=== PATIENT | female | born 1955 | race Caucasian/White ===

== ENCOUNTER 2022-12-27 14:30 | Outpatient (CLI) | payer MEDICARE, SELFPAY ==
--- NOTE | 2022-12-27 14:40 | CRLHL7_ITS ---
For Patients: As a result of the Cures Act, medical imaging exams and procedure reports are released immediately into your electronic medical record. You may view this report before your referring provider. If you have questions, please contact your health care provider. BILATERAL SCREENING MAMMOGRAM WITH COMPUTER-AIDED DETECTION AND TOMOSYNTHESIS TECHNIQUE: CC and MLO views were obtained. These mammographic images have been obtained using full-field digital technique. These mammographic images were interpreted with the benefit of computer-aided detection. Breast Tomosynthesis was used in this interpretation. COMPARISON FILM: 12/22/21, 11/27/20, 11/08/19. FINDINGS: There are scattered areas of fibroglandular density IMPRESSION: There is no radiographic evidence for malignancy. ASSESSMENT: BI-RADS Category 1: Negative RECOMMENDATION: Routine screening mammogram in 1 year. A lay language report of this examination will be provided to the patient. Bryan Pringle M.D. Diagnostic Radiologist [email or web address] BART/prosper / be/Dictated by: Bryan Pringle MD @ 12/28/2022 1:11:00 PM (Electronically Signed)
== END 2022-12-27 14:31 | disposition home or self-care (01) ==
LOC: MAMMO 14:31
PROVIDERS: PCP Family Medicine; Visit Provider Family Medicine
DX: Z12.31 Encounter for screening mammogram for malignant neoplasm of breast (principal)
CPT/HCPCS: 77063; 77067

== ENCOUNTER 2023-01-13 07:56 | Outpatient (CLI) | payer MEDICARE, SELFPAY | END 2023-01-13 07:57 | disposition home or self-care (01) | LOC: NFLDREF 01-14 14:59 | PROVIDERS: PCP Family Medicine; Referring Provider Family Medicine; Visit Provider Family Medicine | DX: I25.10 Atherosclerotic heart disease of native coronary artery without angina pectoris (principal); E78.5 Hyperlipidemia, unspecified; M81.0 Age-related osteoporosis without current pathological fracture; E55.9 Vitamin D deficiency, unspecified; E78.00 Pure hypercholesterolemia, unspecified | CPT/HCPCS: 80053; 80061; 82306 ==

== ENCOUNTER 2023-04-26 07:40 | Outpatient (CLI) | payer MEDICARE, SELFPAY | END 2023-04-26 07:41 | disposition home or self-care (01) | LOC: NFLDREF 18:05 | PROVIDERS: PCP Family Medicine; Referring Provider Family Medicine; Visit Provider Family Medicine | DX: E78.00 Pure hypercholesterolemia, unspecified (principal) | CPT/HCPCS: 80061 ==

== ENCOUNTER 2023-12-28 11:18 | Outpatient (CLI) | payer MEDICARE, SELFPAY ==
--- OUTSIDE RECORDS SUMMARY | 2023-12-28 11:21 | XMS_ITS | Encounter Summary ---
Author Name Unknown Organization [facility] Address [address] [place] [address] Care Team Providers Care Environmental Epidemiologist Name Role Phone Mary Ruiz MD Primary Care Provider Reason for Visit * Reason Comments Clinician Finder Team Encounter Details Date Type Department Care Team (Late st Contact Info) Description 07/15/2023 Telephone [facility] [address] [facility] [address] [facility] [place] [address] Needs Pcp, Assignment [place], [place] [address] Clinician Finder Team Social History Tobacco Use Types Packs/Day Years Used Date Smoking Tobacco: Never Assessed Sex and Gender Information Value Date Recorded Sex Assigned at Not on file Gender Identity Not on file Sexual Orientation Not on file documented as of this encounter Plan of Treatment Not on file documented as of this encounter Visit Diagnoses Not on filedocumented in this encounter Care Teams Environmental Epidemiologist Relationship Specialty Start Date End Date Mary Ruiz MD [address] [place] [address] PCP - General Family Practice 07/15/23 documented as of this encounter
--- OUTSIDE RECORDS SUMMARY | 2023-12-28 11:21 | XMS_ITS | Referral Summary ---
Author Name Unknown Organization [facility] Address [address] [place] [address] Care Team Providers Care Transfer Station Attendant Name Role Phone No Ref-Primary, Physician Primary Care Provider Allergies Active Allergy Reactions Criticality Noted Date Comments Erythromycin Nausea and Vomiting 06/28/2011 Other reaction(s): Abdominal pain, GI intolerance severe severe Perflutren Lipid Microspheres Muscle Pain (Myalgia) Medium 09/25/2015 Other reaction(s): Myalgia Other reaction(s): Myalgia Lower back pain Lower back pain Lower back pain Other reaction(s): Myalgia Lower back pain Medications Medication Sig Dispensed Refills Start Date End Date Status alendronate (FOSAMAX) 70 MG tablet Take 70 mg by mouth 0 12/26/2020 Activ e amitriptyline (ELAVIL) 10 MG tablet Take 40 mg by mouth 0 12/26/2020 Activ e vitamin C (ASCORBIC ACID) 500 MG tablet Daily 0 Activ e cholecalciferol 25 MCG (1000 UT) TABS 2,000 Units 0 Activ e metoprolol tartrate (LOPRESSOR) 25 MG tablet Take 12.5 mg by mouth 0 01/13/2021 Act rodney nitroGLYcerin (NITROSTAT) 0.[address] 0.4 mg under the tongue 0 02/11/2022 Active polyethylene glycol (MIRALAX) 17 GM/Dose powder Daily 0 Active zinc gluconate 50 MG tablet Take 1 tablet by mouth daily 0 Active zolpidem (AMBIEN) 5 MG tablet Take 2.5 mg by mouth 0 12/26/2020 Acti ve nirmatrelvir and ritonavir (PAXLOVID) therapy packIndications:Liyah pected COVID-19 virus infection Take 3 tablets by mouth 2 times daily Take 2 Nirmatrelvir tablets and 1 Ritonavir tablet twice daily for 5 days. 30 each 0 02/27/2022 Active Social History Tobacco Use Types Packs/Day Years Used Date Smoking Tobacco: Never Smokeless Tobacco: Never Alcohol Use Standard Drinks/Week Comments Yes 0 (1 standard drink = 0.6 oz pur e alcohol) glass a wine 2 times a month Adolescent Education Answer Date Record ed Getting School Help Needed Not on file 07/31 Sex and Gender Information Value Date Recorded Sex Assigned at Not on file Gender Identity Not on file Sexual Orientation Not on file Last Filed Vital Signs Vital Sign Reading Time Taken Comments Blood Pressure 130/84 02/27/2022 2:03 PM CDT Pulse 73 02/27/2022 2:03 PM CDT Temperature 36.8 ??C (98.3 ??F) 02/27/2022 2:03 PM CD T Respiratory Rate 16 02/27/2022 2:03 PM CDT Oxygen Saturation 97% 02/27/2022 2:03 PM CDT Inhaled Oxygen Concentration - - Weight 63.5 kg (140 lb) 02/27/2022 2:03 PM CDT Height - - Body Mass Index - - Plan of Treatment Not on file Care Teams Transfer Station Attendant Relationship Specialty Start Date End Date No Ref-Primary, Physician PCP - General 02/27/22
--- OUTSIDE RECORDS SUMMARY | 2023-12-28 11:21 | XMS_ITS | Clinical Summary ---
Author Name Unknown Organization [facility] Address [address] [place] [address] Care Team Providers Care Office Technologist Name Role Phone No Ref-Primary, Physician Primary [...] Mass Index - - Plan of Treatment Health Maintenance Due Date Last Done Comments ADVANCE CARE PLANNING 1955 ANNUAL REVIEW OF HM ORDERS 1954 CT COLONOGRAPHY 1954 DEXA 1954 FIT 1954 FLEX SIG 1954 GLUCOSE 1954 MAMMO SCREENING 1954 sDNA (Cologuard) 1954 HEPATITIS C SCREENING 1972 LIPID 1994 RSV VACCINE ( & 60+) (1 - 1-dose 60+ series) 2014 COLONOSCOPY 08/10/2015 08/10/2005 COLORECTAL CANCER SCREENING 08/10/2015 ZOSTER IMMUNIZATION (2 of 3) 08/22/2017 06/27/2017 FALL RISK ASSESSMENT 2019 MEDICARE ANNUAL WELLNESS VISIT 2019 09/12/2017, 08/05/2016, 09/03/2013, Additional history exists COVID-19 Vaccine ( season) 2023 09/14/2021, 01/23/2021, 12/26/2020 INFLUENZA VACCINE (#1) 2023 2, 07/28/2021, 08/07/2020, Additional history exists PHQ-2 (once per calendar year) 2023 DTAP/TDAP/TD IMMUNIZATION (4 - Td or Tdap) 10/13/2028 10/13/2018, 10/13/2018, 10/06/2007, Additional history exists Pneumococcal Vaccine: 65+ Years Completed 12/29/2021, 11/22/2019, 11/09/2005 HPV IMMUNIZATION Aged Out No longer e ligible based on patient's age to complete this topic IPV IMMUNIZATION Aged Out No longer e ligible based on patient's age to complete this topic MENINGITIS IMMUNIZATION Aged Out No l onger eligible based on patient's age to complete this topic RSV MONOCLONAL ANTIBODY Aged Out No l onger eligible based on patient's age to complete this topic Care Teams Office Technologist Relationship Specialty Start Date End Date No Ref-Primary, Physician PCP - General 02/27/22
--- OUTSIDE RECORDS SUMMARY | 2023-12-28 11:21 | XMS_ITS | Encounter Summary ---
Author Name Unknown Organization [facility] Address [address] [place] [address] Care Team Providers Care Production Line Name Role Phone Needs Pcp, Assignment Primary Care Provider Encounter Details Date Type Department Care Team (Late st Contact Info) Description 06/30/2023 11:05 AM CDT Lab Visit [facility] [address] [place] [address] Mixed hyperlipidemia (HRC) Social History Tobacco Use Types Packs/Day Years Used Date Smoking Tobacco: Never Assessed Sex and Gender Information Value Date Recorded Sex Assigned at Not on file Gender Identity Not on file Sexual Orientation Not on file documented as of this encounter Progress Notes * Gabriela Franklin MD - 06/30/2023 11:05 AM CDT Can you please let the patient know the test is normal. documented in this encounter Plan of Treatment Not on file documented as of this encounter Procedures Procedure Name Priority Date/Time Associated Diagnosis Comments LIPID PANEL & DIRECT LDL (IF NEEDED) Routine 06/30/2023 10:54 AM CDT Mixed hyperlipidemia (HRC) documented in this encounter Results * Lipid Panel and Direct LDL(If Needed) (06/30/2023 10:54 AM CDT) Cholesterol 189 0 - 199 mg/dL 06/30/2023 4:24 PM [facility] Triglyceride 66 <=149 mg/dL 06/30/2023 4:24 PM [facility] HDL Cholesterol 79 >=40 mg/dL 4:24 PM [facility] LDL, Calculated 97 <130 mg/dL 4:24 PM [facility] Non HDL Chol, Calculated 110 <=159 mg/dL 06/30/2023 4:24 PM [facility] Cholesterol/HDL Ratio 2.4 06/30/2023 4:24 PM [facility] Hours Fasting 0.1 8 - 12 Hours 06/30/2023 4:24 PM [facility] Blood Venipuncture / Unknown 06/30/2023 10:54 AM CDT 06/30/2023 10:54 AM CDT Gabriela Franklin MD LAB_1 [facility] [address] [place] [address], [facility] [phone] documented in this encounter Visit Diagnoses Diagnosis Mixed hyperlipidemia (HRC) Mixed hyperlipidemia documented in this encounter Care Teams Production Line Relationship Specialty Start Date End Date [place] [address] PCP - General 05/29/15 07/14/23 documented as of this encounter
--- OUTSIDE RECORDS SUMMARY | 2023-12-28 11:21 | XMS_ITS | Clinical Summary ---
Author Name Unknown Organization [facility] Address [place], [place] [address] Care Team Providers Care Order Entry Administrator Name Role Phone Mary Ruiz MD Primary Care Provider + Allergies Active Allergy Reactions Criticality Noted Date Comments Perflutren Lipid Microspheres Myalgia Medium 09/25/2015 Lower back pain Erythromycin Nausea And Vomiting 09/09/2015 Medications Medication Sig Dispensed Refills Start Date End Date Status alendronate (FOSAMAX) 70 mg tablet Take 70 mg by mouth once a week in the morning. Take on empty stomach with full glass of water. Do not lie down for 1 hr. 0 Active zolpidem (AMBIEN) 5 mg tablet Take 2.5 mg by mouth at bedtime. 0 Active polyethylene glycol (MIRALAX) 17 g powder for solution Take 17 g by mouth once daily. 0 09/21/2018 Active amitriptyline (ELAVIL) 10 mg tablet Take 4 Tablets by mouth at bedtime. 0 Active ascorbic acid, vitamin C, (VITAMIN C) 1,000 mg tablet Take 1 Tablet by mouth once daily. 0 Active multivitamin (MVI) tablet Take 1 Tablet by mouth once daily. 0 02/10/2022 Active zinc 50 mg tablet Take 1 Tablet (50 mg) by mouth once daily. 0 04/27/2022 Active cholecalciferol (Vitamin D) 1,000 unit tablet Take 1 Tablet (1,000 units) by mouth once daily. 0 04/27/2022 Active medication order composer Calcium cap once daily (unsure of strength) Pro and prebiotic One capsule per day. 0 04/27/2022 Active aspirin chewable 81 mg chewable tabletIndications:Spo ntaneous dissection of coronary artery Chew 1 Tablet (81 mg) by mouth once daily. Pt stated taking one tab by mouth every other day, unless when having an episode I'll take one everyday. 0 10/18/2022 Active nitroglycerin (NITROSTAT) 0.4 mg sublingual tabletIndications:Spo ntaneous dissection of coronary artery,Stress-induced cardiomyopathy Place 1 Tablet (0.4 mg) under the tongue every 5 minutes if needed for Chest Pain. 25 Tablet 2 10/18/2022 Active metoprolol tartrate (LOPRESSOR) 25 mg tabletIndications:Spo ntaneous dissection of coronary artery Take 0.5 Tablets (12.5 mg) by mouth two times daily. 180 Tablet 0 04/26/2023 Active Active Problems Problem Noted Date Diagnosed Date Hypercholesterolemia 09/07/2018 Overview: -09/01/2018 Chol: 208, T, HDL: 72, LDL: 123 started on atorvastatin 20 mg at bedtime Stress-induced cardiomyopathy 08/31/2018 Spontaneous dissection of coronary artery 2017 Overview: -09/15/2015 CT coronary angio Normal coronary arteries. Coronary calcium score of 0. Normal ascending aortic dimensions -08/31/2018 Angio STEMI VASCULAR ACCESS Using ultrasound guidance and a percutaneous technique, the right radial artery was accessed. Ultrasound was used to confirm vessel patency, localizing needle into the lumen of the vessel. An image was saved for the medical record. DIAGNOSTIC - CORONARY Single vessel coronary disease (70% diffuse distal LAD - possibly due to spontaneous coronary dissection) LEFT VENTRICULAR FUNCTION Left ventricular function is normal. Severe akinesis noted in the apex RECOMMENDATIONS & PLAN Medical Rx -08/31/2018 ECHO Normal left ventricular size, normal wall thickness, normal global systolic function, calculated EF of 56 %. Mid and distal anterior septum, apical lateral segment, and mid septum segment are abnormal. The mitral valve is normal, mild mitral regurgitation. -09/01/2018 CT coronary angio Known spontaneous coronary artery dissection. Apical third of the LAD has features compatible with spontaneous coronary artery dissection. Anatomy is unchanged directly compared to the invasive angiogram. Otherwise widely patent but tortuous coronary arteries. Descending thoracic aortic atherosclerosis. Mid to apical LAD wall motion abnormality, in proportion to the SCAD demonstrated. No LV thrombus. No acute non cardiovascular findings. ?? COMMENT: The patient had a vasovagal episode post CTA. She was briefly unresponsive with eyes staring forward. She was immediately laid down on a cart with her legs lifted. I attended her immediately. She had a good pulse throughout, and immediately woke up upon laying flat. No chest discomfort. Conversant throughout this period of time. Blood pressure was approximately 108 mmHg systolic. Monitor showed sinus rhythm, and she began to receive IV fluids. She was transported upstairs fully awake and intact. Immunizations Name Administration Dates Next Due Hepatitis A (Adult) 05/13/2010,11/18/1998 Influenza A (H1N1), Inactivated 11/26/2009 Influenza, High-dose Inactivated 08/01/2015 Influenza, IIV3 (Age 6-35 mos) 08/05/2016 Influenza, IIV3 (Age >=3 years) 08/07/20 14,08/20/2013,08/18/2012,2010,07/20/2011,08/12/2010 Influenza, IIV4 08/05/2016, 5,08/07/2014,2012,08/07/2012,08/06/2011,08/07/2007,1 11/14/2003 Influenza, IIV4 (=>6mos) MDV 07/23/2015 Influenza,CCIIV4 PRESERV FREE 08/22/2017 Pneumococcal Poly,23-Valent (Pneumovax) 11/09/2005 Td (Age >=7 Years) 04/02/1998 Family History Medical History Relation Name Comments Cancer-breast Maternal Aunt 70's Cancer-colon Maternal Aunt 70's Cancer-ovarian No Family History Cancer-prostate No Family History Relation Name Status Comments Maternal Aunt Alive Social History Tobacco Use Types Packs/Day Years Used Date Smoking Tobacco: Never Smokeless Tobacco: Never Alcohol Use Standard Drinks/Week Comments No 0 (1 standard drink = 0.6 oz pur e alcohol) PHQ-2 Answer Date Recorded PHQ-2 Score 3 01/06/2019 Social Connections Answer Date Recorded Frequency of Communication with Friends and Fami ly Not on file 11/07/2021 Financial Resource Strain Answer Date R ecorded Difficulty of Paying Living Expenses Not on file 11/07/2021 Difficulty of Paying Living Expenses Not on file 11/07/2021 Sex and Gender Information Value Date Recorded Sex Assigned at Not on file Gender Identity Not on file Sexual Orientation Not on file Obstetrics History Last Filed Vital Signs Vital Sign Reading Time Taken Comments Blood Pressure 103/70 10/18/2022 9:36 AM INDUSTRIAL INSULATOR Difficult to hear. Pulse 68 10/18/2022 9:33 AM INDUSTRIAL INSULATOR Temperature 36.4 ??C (97.6 ??F) 09/03/2018 8 :41 AM CDT Respiratory Rate 16 09/03/2018 8:41 AM CDT Oxygen Saturation 99% 10/18/2022 9:3 3 AM INDUSTRIAL INSULATOR Inhaled Oxygen Concentration - - Weight 63.9 kg (140 lb 14.4 oz) 10/18/2022 9:33 AM INDUSTRIAL INSULATOR Height 165.1 cm (5' 5) 10/18/2022 9:33 AM INDUSTRIAL INSULATOR Body Mass Index 23.45 10/18/2022 9:33 AM INDUSTRIAL INSULATOR Plan of Treatment Health Maintenance Due Date Last Done Comments Tdap 1965 Hepatitis C screening for ag e 18-79 1972 Colonoscopy through age 75 1999 Zoster (shingles) series for age 50+ (1 of 2) 2004 Tetanus booster 04/02/2008 04/02/1998 Mammogram for age 45-75 04/20/2018 04/20/20 17, 04/14/2016, 04/03/2015, Additional history exists DEXA/DXA scan for age 65+ 2019 Medicare Wellness for age 65+ 2019 Pneumococcal series for age 65+ (2 of 2 - PCV) 2019 11/09/2005 Depression screening for age 12+ 09/22/2019 09/22/2018, 09/21/2018, 09/21/2018, Additional history exists COVID-19 vaccine series ( season) 2023 08/30/2022, 09/14/2021, 01/23/2021, Additional history exists Influenza for age 65+ 07/08/2023 08/22/2017 , 08/05/2016, 08/01/2015, Additional history exists BMI (ht and wt on same day) for age 18+ 10/18/2023 10/18/2022, 04/27/2022, 01/17/2019, Additional history exists Lipids for age 45-75 10/18/2027 10/18/2022, 01/14/2020, 09/21/2018, Additional history exists Advance Directives Latest Code Status on File Code Status Date Activated Date Inactivated Comments Full Code 08/31/2018 12:56 PM 09/03/2018 4:30 PM Care Teams Order Entry Administrator Relationship Specialty Start Date End Date Mary Ruiz MD [address] [place] [address] PCP - General Family Practice 10/24/18
--- OUTSIDE RECORDS SUMMARY | 2023-12-28 11:21 | XMS_ITS | Encounter Summary ---
Author Name Unknown Organization [facility] Address [address] [place] [address] Care Team Providers Care Microsoft Net Developer Name Role Phone Needs Pcp, Assignment Primary Care Provider [phone] Reason for Referral * Procedure/Equipment (Routine) - Closed Specialty Diagnoses / Procedures Referred By Nelida perera Referred To Contact Diagnoses Fibromuscular dysplasia (HRC) Headaches Procedures CT Angio Neck Head W IV Cont Gabriela Hardin MD [address] [place] [address] Referral ID Status Reason Start Date Expiration Date Visits Re quested Visits Authorized [id number] Closed 07/04/2023 08/18/2023 1 1 Reason for Visit * Reason Comments CONSULT Encounter Details Date Type Department Care Team (Late st Contact Info) Description 06/30/2023 9:30 AM CDT Initial Consult [facility] [address] [address] Gabriela Hardin MD [address] [place], [place] [id number] Nurse, Cardiology II [facility] [address] 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); Fibromuscular dysplasia (HRC); Headaches; Mixed hyperlipidemia (HRC) Social History Tobacco Use Types Packs/Day Years Used Date Smoking Tobacco: Never Assessed Sex and Gender Information Value Date Recorded Sex Assigned at Not on file Gender Identity Not on file Sexual Orientation Not on file documented as of this encounter Last Filed Vital Signs Vital Sign Reading Time Taken Comments Blood Pressure 100/79 06/30/2023 9:34 AM CDT Pulse 72 06/30/2023 9:34 AM CDT apica l, reg Temperature - - Respiratory Rate - - Oxygen Saturation - - Inhaled Oxygen Concentration - - Weight 61.2 kg (135 lb) 06/30/2023 9:34 AM CDT Height 165.1 cm (5' 5) 06/30/2023 9:34 AM CDT Body Mass Index 22.47 06/30/2023 9:34 AM CDT documented in this encounter Patient Instructions * Patient Instructions* Marlee Starr RN - 06/30/2023 9:30 AM CDT Labs today Schedule head CT Aspirin 81 mg daily Continue metoprolol 12.5 mg twice a day Follow up in clinic in 1 year. documented in this encounter Progress Notes * Gabriela Hardin MD - 06/30/2023 9:30 AM CDT Cardiology Consultation 06/30/2023 Shalini Oneal [id number] Referring provider: Assignment Needs PCP History of Present Illness: Shalini Oneal is a very pleasant 68 y.o. female with a history of LAD SCAD. She presented 08/31/[address]-ELEVATION MYOCARDIAL INFARCTION due to spontaneous coronary artery dissection. Treated conservatively. Troponin peaked at 6. She was discharged home and had chest pain off and on for about a week after, but now is feeling better. Her SCAD occurred the day she discovered that her son-in-law had committed suicide. Her has parkinsons, diagnosed about 20 years ago. He is also caregiver for her parents. CT head showed some changes consistent with fibromuscular dysplasia of middle cerebral arteries butvery mild. Echo was normal. Aches on statin, better off statin but also has fibromyalgia. LDL on 5 mg of Crestor every day was 150. Here in follow up; she had 2 episodes of chest pain radiating to the neck, similar to her STEMI butmuch less severe and resolved. Did not recur with exercise exertion. Walks regularly- walked 2.5 miles yesterday. No decrease in exercise tolerance. Lost 20lbs. She walks 2-3.5 miles about 3 times a week and has no chest pain with this. She gets occasional headaches, left-sided. INDICATION: Chronic intractable headache. History of spontaneous coronary artery dissection. TECHNIQUE: Contrast enhanced helical CT of the head with axial images obtained from the skullbase to the vertex with the intravenous administration of 100 cc of Omnipaque-350. Sagittal and coronal reformats generated. PLEASE NOTE THAT ALL CT SCANS AT THIS FACILITY USE DOSE MODULATION, ITERATIVE RECONSTRUCTION, AND/OR WEIGHT-BASED DOSING WHEN APPROPRIATE TO REDUCE RADIATION TO LOW REASONABLY ACHIEVABLE. FINDINGS: The CSF containing spaces demonstrate and age-appropriate volume and appear symmetrical. No enhancing intracranial masses are identified. No abnormal extra- axial fluid collections or mass-effect. Mild membrane thickening involving several bilateral ethmoid air cells. The visualized paranasal sinuses, mastoid air cells and middle ear cavities are otherwise clear. The orbits are unremarkable. The osseous calvarium is intact. Evaluation of the intracranial arteries for fibromuscular dysplasia can be difficult. On this examination there may be a slightly beaded appearance of the middle cerebral arteries. IMPRESSION: 1. Normal CT appearance of the brain. 2. Possible fibromuscular dysplasia involving the middle cerebral arteries. However this is difficult to state with certainty. Intracranial MRA could be considered for further imaging evaluation. Please note that all CT scans at this facility use dose modulation, iterative reconstruction, and/or weight-based dosing when appropriate to reduce radiation dose to as low as reasonably achievable. Dictated by Albert Moon DO @ Oct 05 2018 10:54AM NECK -- Computed Tomography CAROTID -- -- Narrative INDICATION: Coronary dissection, clinical suspicion for fibromuscular dysplasia. TECHNIQUE: High-resolution axial CT images were acquired through the neck following the rapid intravenous administration of iodinated contrast. Multiplanar MIPS of the cervical vasculature were performed as well. FINDINGS: The carotid and vertebral arteries are tortuous and extremely ectatic, particularly the left internal carotid artery, which is quite large (measuring over 6 mm in diameter even distally). The findings are consistent with an underlying vasculopathy, not otherwise specified. There is not the classic b eaded appearance to suggest fibromuscular dysplasia. There is no evidence for dissection. There is no stenosis. There is no intraluminal filling defect. IMPRESSION: Tortuous ectatic cervical vasculature consistent with an underlying vasculopathy, not otherwise specified. No evidence for fibromuscular dysplasia, significant stenosis or dissection. Please note that all CT scans at this facility use dose modulation, iterative reconstruction, and/or weight-based dosing when appropriate to reduce radiation dose to as low as reasonably achievable. Dictated by Jose Armendariz MD @ Sep 26 2018 1:41PM ECHOCARDIOGRAM SHALINI ONEAL : 1955 65 years Study Date: 02/24/2021 10:55:35 AM Gender: F BP: 114/70 mmHg Height: 165.10 cm BSA: 1.75 m? Weight: 67.58 kg Tech: LRT Referring MD: GABRIELA HARDIN Site: [facility] Reading Location: [facility] Procedure: 2D, Color Doppler and Spectral Doppler. Indication for study: ST elevation myocardial infarction involving left anterior descending (LAD) coronary artery Cardiac Rhythm: Sinus bradycardia.Study quality: Technically limited. Imaging limitations: This study was subject to imaging limitations due to a prominent lung artifact. Final Impressions: 1. Technically limited exam. 2. Normal LV size, normal wall thickness, estimated EF of 55 - 60%. 3. Normal RV size and systolic function. 4. The mitral valve is normal, mild mitral regurgitation. CTA 08/22/2018: IMPRESSION: 1. Known spontaneous coronary artery dissection. A. Apical third of the LAD has features compatible with spontaneous coronary artery dissection. Distribution is unchanged directly compared to the invasive angiogram. B. Otherwise widely patent but tortuous coronary arteries. 2. Descending thoracic aortic atherosclerosis. 3. Mid to apical LAD wall motion abnormality, in proportion to the SCAD demonstrated. 4. No LV thrombus. 5. Please see separate radiology dictation for noncardiovascular findings. Echocardiogram 08/31/2018: Final Impressions: 1. Normal left ventricular size, normal wall thickness, normal global systolic function, calculatedEF of 56 %. 2. Mid and distal anterior septum, apical lateral segment, and mid septum segment are abnormal. 3. The mitral valve is normal, mild mitral regurgitation. [facility] Cardiac Catheterization Report Name: SHALINI ONEAL Event Date: 08/31/2018 12:31 Excellian ID #: [id number] FRANCISCO J #: [id number] Diagnostic Physician: LANRE MCKEE [facility] Referring Physician: TIERRA BILLINGSLEY Date: 1955 Gender: Female Age: 63 Summary/Conclusions PRESENTATION / INDICATIONS * STEMI VASCULAR ACCESS * Using ultrasound guidance and a percutaneous technique, the right radial artery was accessed. Ultrasound was used to confirm vessel patency, localizing needle into the lumen of the vessel. An imagewas saved for the medical record. DIAGNOSTIC - CORONARY * Single vessel coronary disease (70% diffuse distal LAD - possibly due to spontaneous coronary dissection) LEFT VENTRICULAR FUNCTION * Left ventricular function is normal. * Severe akinesis noted in the apex RECOMMENDATIONS & PLAN * Medical Rx Medications: Reviewed in the EMR. Pertinent cardiac medications include: Metoprolol Crestor aspirin OBJECTIVE: BP 100/79 (BP Location: Right Arm, BP Cuff Size: Regular) Pulse 72 Comment: apical, reg Ht 5' 5 (165.1 cm) Wt 135 lb (63414 g) BMI 22.47 kg/m?? General Appearance: no respiratory distress Neck No carotid bruits. JVP normal Lungs: Clear to auscultation bilaterally, no wheezes or crackles Heart: Regular rate and rhythm, S1, S2 normal, no murmur, rub or gallop Abdomen: BS+ Extremities: Warm and without edema Assessment: 68-year-old female with a anterior ST-elevation MA due to spontaneous coronary artery dissection down the LAD. Treated conservatively. Echo in February of 2023 was normal. Screening for fibromuscular dysplasia so showed some borderline changes in the middle cerebral arteries bilaterally. Her last imaging was 2017 and she has ongoing headaches. Blood pressure is optimally controlled. I discussed repeat CTA of the cerebral arteries to re-evaluate this. Continue aspirin 81 mg p.o. daily. Continue metoprolol 12.5 mg p.o. b.i.d. She increased Crestor to 5 mg p.o. daily and will recheck lipids today Recommendations: Ok to proceed with cataract surgery CTA to re-evaluate FMD of middle cerebral arteries due to ongoing headache Continue aspirin metoprolol and Crestor Lipids today Annual follow up Thank you for involving me in the care of your patient, Shalini Oneal. If you have any questions regarding these recommendations, please feel free to contact me. Gabriela Hardin MD, [facility] Department of Cardiology documented in this encounter Plan of Treatment Not on file documented as of this encounter Results * CT Angio Neck Head W IV Cont (07/05/2023 12:03 PM CDT) Anatomical Region Laterality Modality Head, Vascular Computed Tomogra phy 07/05/2023 11:4 6 AM CDT Impressions 07/05/2023 8:58 PM CDT INDICATION: Dizziness, persistent/recurrent, cardiac or vascular cause suspected TECHNIQUE: CT angiogram of the [place] ??and CT angiogram of the neck with IV contrast with 2D and 3D reformatting, 100 mL IOPAMIDOL 76 % IV SOLN. ?? COMPARISON: ??None. FINDINGS: Distal internal carotid arteries: Patent and nonstenotic. ? Anterior cerebral arteries: Patent and nonstenotic. ? Middle cerebral arteries: ??Patent and nonstenotic. ? Posterior cerebral arteries: ??Patent and nonstenotic. origin of the left posterior cerebral artery. ?? Vertebrobasilar system: ??Patent and nonstenotic. ? Arch: Normal arch anatomy. Visualized aortic arch and brachiocephalic vessels are patent and nonstenotic. Right Neck: The common carotid artery, internal carotid artery, external carotid artery, and vertebral artery appear patent and nonstenotic. Left Neck: The common carotid artery, internal carotid artery, external carotid artery, and vertebral artery appear patent and nonstenotic. IMPRESSION: 1. No evidence of intracranial aneurysm or stenosis. 2. No evidence for a hemodynamically significant stenosis involving the vessels of the neck. Narrative Procedure Note Oliver Tarango MD - 07/05/2023 IMPRESSION INDICATION: Dizziness, persistent/recurrent, cardiac or vascular causesuspected TECHNIQUE: CT angiogram of the [place] and CT angiogram of theneck with IV contrast with 2D and 3D reformatting, 100 mL IOPAMIDOL 76 %IV SOLN. COMPARISON: None. FINDINGS: Distal internal carotid arteries: Patent and nonstenotic. Anterior cerebral arteries: Patent and nonstenotic. Middle cerebral arteries: Patent and nonstenotic. Posterior cerebral arteries: Patent and nonstenotic. origin of theleft posterior cerebral artery. Vertebrobasilar system: Patent and nonstenotic. Arch: Normal arch anatomy. Visualized aortic arch and brachiocephalicvessels are patent and nonstenotic. Right Neck: The common carotid artery, internal carotid artery, externalcarotid artery, and vertebral artery appear patent and nonstenotic. Left Neck: The common carotid artery, internal carotid artery, externalcarotid artery, and vertebral artery appear patent and nonstenotic. IMPRESSION: 1. No evidence of intracranial aneurysm or stenosis. 2. No evidence for a hemodynamically significant stenosis involving thevessels of the neck. Gabriela Hardin MD RAD CT * Lipid Panel and Direct LDL(If Needed) (06/30/2023 10:54 AM T) Cholesterol 189 0 - 199 mg/dL 06/30/2023 4:24 PM [facility] Triglyceride 66 <=149 mg/dL 06/30/2023 4:24 PM [facility] HDL Cholesterol 79 >=40 mg/dL 3 4:24 PM [facility] LDL, Calculated 97 <130 mg/dL 3 4:24 PM [facility] Non HDL Chol, Calculated 110 <=159 mg/dL 06/30/2023 4:24 PM [facility] Cholesterol/HDL Ratio 2.4 06/30/2023 4:24 PM [facility] Hours Fasting 0.1 8 - 12 Hours 06/30/2023 4:24 PM [facility] Blood Venipuncture / Unknown 06/30/2023 10:54 AM CDT 06/30/2023 10:54 AM CDT Gabriela Hardin MD LAB_1 [facility] [address] [place] [address], [facility] [phone] documented in this encounter Visit Diagnoses Diagnosis Spontaneous dissection of coronary artery (HRC)- Primary Fibromuscular dysplasia (HRC) Other specified disorders of arteries and arterioles Headaches Mixed hyperlipidemia (HRC) Mixed hyperlipidemia Dizziness- Primary Dizziness and giddiness Fibromuscular dysplasia (HRC) Other specified disorders of arteries and arterioles Headaches documented in this encounter Care Teams Microsoft Net Developer Relationship Specialty Start Date End Date Needs Pcp, [place] [address] PCP - General 05/29/15 07/14/23 documented as of this encounter
--- OUTSIDE RECORDS SUMMARY | 2023-12-28 11:21 | XMS_ITS | Clinical Summary ---
Author Name Unknown Organization [facility] Address [address] [place] [address] Care Team Providers Care Paper Machine Back Tender Name Role Phone Mary Ruiz MD Primary Care Provider Source Comments You are receiving this document as you are listed as the primary care provider,follow-up provider, or the patient has been referred to you for consultation.This is in compliance with the Medicare and[facility] Cent[facility]aid EHR Incentive Program,which states Providers who transition their patient to another setting of careor provider of care or refers their patient to another provider of care shouldprovide summary care record for each transition of care or referral. [facility] Allergies Active Allergy Reactions Criticality Noted Date Comments Erythromycin Gastrointestinal 06/30/2023 Stomach pain Perflutren Lipid Microspheres Myalgias Medium 09/25/2015 Lower back pain Medications Medication Sig Dispensed Refills Start Date End Date Status zolpidem (AMBIEN) 5 MG tablet Take 0.5 Tablets (2.5 mg) by mouth at bedtime as needed. Active amitriptyline (ELAVIL) 10 MG tablet Take 4 Tablets (40 mg) by mouth daily at bedtime. Active alendronate (FOSAMAX) 70 MG tablet Take 1 Tablet (70 mg) by mouth once every week. Active metoprolol tartrate (LOPRESSOR) 25 MG tablet Take 0.5 Tablets (12.5 mg) by mouth two times a day. 90 Tablet 3 06/30/2023 Active rosuvastatin (CRESTOR) 5 MG tablet Take 1 Tablet (5 mg) by mouth daily. 90 Tablet 3 06/30/2023 Active Immunizations Name Administration Dates Next Due Flu Vac (3+ yrs) 08/07/2014, 3,08/18/2012, 011,07/20/2011,08/12/2010,09/13/2006,11/2004 Flu Vac Preserv Free (3+yrs) 08/05/2016 Fluzone Qiv Multidose Vial 0 .25 (6-35 Mos) 07/23/2015 [id number] 11/26/2009 HepA Adult (19+ yrs) 05/13/2010,11/18/1998 Influenza (Flucelvax), Prese rv Free QIV 08/11/2018,08/22/2017 Influenza IIV3 (Trivalent) F luzone Highdose, 65+ Yrs (87266) 08/07/2019,08/01/2015 Influenza IIV4 (Quadrivalent ) 0.5mL (12280) 08/07/2020,08/05/2016,08/01/2015, 014,07/24/2014,08/20/2013,08/07/2012,,11/26/2009,08/07/2007,09/14/2004 Influenza IIV4 (Quadrivalent ) Fluzone, 65+ Yrs 08/09/2022,07/28/2021 Influenza Vaccine (3+years) ([facility]) 09/19/2007 Moderna Bivalent 12+ 08/30/2022 Moderna Monovalent 12+ 01/23/2021,12/26/2020 PCV13 (Prevnar) 11/22/2019 PPSV23 (Pneumovax) 12/29/2021,11/09/2005 Pfizer Monovalent 12+ Purple Top 09/14/2021 Td 04/02/1998 Tdap 10/13/2018 Zoster (Zostavax) 06/27/2017 Social History Tobacco Use Types Packs/Day Years [...] Mass Index 22.47 06/30/2023 9:34 AM CDT Plan of Treatment Health Maintenance Due Date Last Done Comments Hep C Screening (Preventive Services) 1955 Medicare Welcome Visit 1955 Mammogram 04/09/2014 04/09/2013 Zoster/Shingles (2 of 3) 08/22/2017 06/27/2017 Dexa 2019 Colonoscopy 05/04/2020 05/04/2010 COVID-19 Vaccine ( season) 2023 08/30/2022, 09/14/2021, 01/23/2021, Additional history exists Influenza (#1) 2023 08/09/2022, 09/11/2020, 08/07/2020, Additional history exists Cholesterol 06/30/2028 06/30/2023 DTaP/Tdap/Td (2 - Tdap) 10/13/2028 10/13/2018, 04/02 HepA Completed 05/13/2010, 11/18/1998 Pneumococcal 65+ Yrs Completed 12/29/2021, 11/22/2019, 11/09/2005 HepB Aged Out No longer eligi ble based on patient's age to complete this topic Hib Aged Out No longer eligi ble based on patient's age to complete this topic IPV (Polio) Aged Out No longer eligi ble based on patient's age to complete this topic MCV4 Aged Out No longer eligi ble based on patient's age to complete this topic Procedures Procedure Name Priority Date/Time Associated Diagnosis Comments LIPID PANEL & DIRECT LDL (IF NEEDED) Routine 06/30/2023 10:54 AM CDT Mixed hyperlipidemia (HRC) from Last 3 Months or Most Recently Relevant to Health Maintenance Results * Lipid Panel and Direct LDL(If Needed) (06/30/2023 10:54 AM CDT) Cholesterol 189 0 - 199 mg/dL 06/30/2023 4:24 PM [facility] Triglyceride 66 <=149 mg/dL 06/30/2023 4:24 PM [facility] HDL Cholesterol 79 >=40 mg/dL 4:24 PM [facility] LDL, Calculated 97 <130 mg/dL 4:24 PM [facility] Non HDL Chol, Calculated 110 <=159 mg/dL 06/30/2023 4:24 PM [facility] Cholesterol/HDL Ratio 2.4 06/30/2023 4:24 PM [facility] Hours Fasting 0.1 8 - 12 Hours 06/30/2023 4:24 PM [facility] Blood Venipuncture / Unknown 06/30/2023 10:54 AM CDT 06/30/2023 10:54 AM T Gabriela Franklin MD LAB_1 [facility] [address] [place] [address], [facility] [phone] from Last 3 Months or Most Recently Relevant to Health Maintenance Care Teams Paper Machine Back Tender Relationship Specialty Start Date End Date Mary Ruiz MD [address] [place] [address] PCP - General Family Practice 07/15/23
--- OUTSIDE RECORDS SUMMARY | 2023-12-28 11:21 | XMS_ITS | Encounter Summary ---
Author Name Unknown Organization [facility] Address [address] [place] [address] Care Team Providers Care Director Medical Safety Name Role Phone Needs Pcp, Assignment Primary Care Provider [phone] Reason for Visit * Procedure/Equipment (Routine) - Closed Specialty Diagnoses / Procedures Referred By Nelida perera Referred To Contact Diagnoses Fibromuscular dysplasia (HRC) Headaches Procedures CT Angio Neck Head W IV Cont Gabriela Franklin MD [address] [place] [address] Referral ID Status Reason Start Date Expiration Date Visits Re quested Visits Authorized [id number] Closed 07/04/2023 08/18/2023 1 1 Encounter Details Date Type Department Care Team (Late st Contact Info) Description 07/05/2023 12:00 PM CDT Ancillary Procedure [facility] [address] [address] Scan [address] [place] [id number] Gabriela Franklin MD [address] [place] [address] Dizziness (Primary Dx); Fibromuscular dysplasia (HRC); Headaches Social History Tobacco Use Types Packs/Day Years Used Date Smoking Tobacco: Never Assessed Sex and Gender Information Value Date Recorded Sex Assigned at Not on file Gender Identity Not on file Sexual Orientation Not on file documented as of this encounter Progress Notes * Gabriela Franklin MD - 07/05/2023 12:00 PM CDT Can you please let the patient know the test is normal. * Gabriela Franklin MD - 07/05/2023 12:00 PM CDT Can you please let the patient know the test is normal. documented in this encounter Plan of Treatment Not on file documented as of this encounter Procedures Procedure Name Priority Date/Time Associated Diagnosis Comments CT ANGIO NECK HEAD W IV CONT Routine 07/05/2023 12:03 PM CDT Fibromuscular dysplasia (HRC) Headaches CREATININE/GFR, WB POC STAT 07/05/2023 11:31 AM CDT Dizziness documented in this encounter Results * CT Angio Neck Head W IV Cont (07/05/2023 12:03 PM CDT) Anatomical Region Laterality Modality Head, Vascular Computed Tomogra phy 07/05/2023 11:4 6 AM CDT Impressions 07/05/2023 8:58 PM CDT INDICATION: Dizziness, persistent/recurrent, cardiac or vascular cause suspected TECHNIQUE: CT angiogram of the [place] ??and CT angiogram of the [...] vascular causesuspected TECHNIQUE: CT angiogram of the [place] and CT angiogram of theneck [...] stenosis involving thevessels of the neck. Gabriela Franklin MD RAD CT * Creatinine/GFR, WB POC (07/05/2023 11:31 AM CDT) Creatinine, Whole Blood 0.9 0.6 - 1.0 mg/dL 07/05/2023 11:44 AM T [facility] Performing Location LAB BU 07/05/2023 11:44 AM [facility] GFR, Estimated >60 >60 mL/min/1.7 3m2 07/05/2023 11:44 AM CDT [facility] Blood Venipuncture / Unknown 07/05/2023 11:31 AM CDT 07/05/2023 11:36 AM CDT Gabriela Franklin MD LAB_1 [facility] [address] [place] [address], [facility] [phone] documented in this encounter Visit Diagnoses Diagnosis Dizziness- Primary Dizziness and giddiness Fibromuscular dysplasia (HRC) Other specified disorders of arteries and arterioles Headaches documented in this encounter Administered Medications Inactive Administered Medications - up to 3 most recent administrations Medication Order MAR Action Action Date Dose Rate Site iopamidol (ISOVUE-370) 76 % injection 100 mL 100 mL, Intravenous, ONCE, On Tue07/05/23 at 1230, For 1 dose Given 07/05/2023 12:04 PM CDT 100 mL sodium chloride 0.9% bolus 100 mL 100 mL, Intravenous, Administer over 1 Hours, ONCE, On Tue07/05/23 at 1230, For 1 dose Given 07/05/2023 12:04 PM CDT 100 mL sodium chloride 0.9% injection 10 mL 10 mL, Intravenous, ONCE, On Tue07/05/23 at 1230, For 1 dose Given 07/05/2023 12:04 PM CDT 10 mL documented in this encounter Care Teams Director Medical Safety Relationship Specialty Start Date End Date Needs Pcp, [place] [address] PCP - General 05/29/15 07/14/23 documented as of this encounter
--- OUTSIDE RECORDS SUMMARY | 2023-12-28 11:21 | XMS_ITS | Clinical Summary ---
Author Name Unknown Organization [facility] Address [address] [place] [address] Care Team Providers Care Integrated Campaign Manager Name Role Phone Elsewhere, Pcp Primary Care Provider Unavailabl e Source Comments Patient records contain information from all sites at [facility]. For routine questions regarding patient records, call [phone] during business hours, M-F 8:00 AM - 5:00 PM Central Time. Record requests for emergency care only can be directed to [phone] at any time.[facility] Allergies Active Allergy Reactions Criticality Noted Date Comments Erythromycin GI intolerance,Nausea And Vomiting 06/28/2011 severe Perflutren Lipid Microspheres Myalgia Medium 09/25/2015 Other reaction(s): Myalgia Lower back pain Lower back pain Propane Myalgia Medium 09/25/2015 Other reaction(s): Myalgia Other reaction(s): Myalgia Lower back pain Lower back pain Lower back pain Other reaction(s): Myalgia Lower back pain Medications Medication Sig Dispensed Refills Start Date End Date Status amitriptyline (ELAVIL) 10 mg tablet Take 40 mg by mouth at bedtime. 0 01/09/2016 Active multivitamin capsule daily. 0 Acti ve zolpidem (AMBIEN) 5 mg tablet Take 2.5 mg by mouth at bedtime. 0 01/09/2016 Active alendronate (FOSAMAX) 70 mg tablet TAKE 1 TABLET BY MOUTH ONCE WEEKLY ON AN EMPTY STOMACH WITH A BIG GLASS OF WATER. DO NOT LIE DOWN FOR 60 MINUTES AFTERWARDS. 0 06/24/2021 Active ascorbic acid, vitamin C, (VITAMIN C) 1,000 mg tablet Take 1 tablet by mouth daily. 0 Active aspirin 81 mg chewable tablet Chew 1 tablet daily. 0 09/02/2018 Active cholecalciferol, vitamin D3, 25 mcg (1,000 Unit) tablet 2,000 Units daily. 0 Active metoprolol tartrate (LOPRESSOR) 25 mg tablet Take 12.5 mg by mouth 2 (two) times a day. 0 01/13/2021 Active nitroglycerin (NITROSTAT) 0.[address] 0.4 mg under the tongue. 0 01/23/2020 Active polyethylene glycol (MIRALAX) 17 gram/dose oral powder 17 g. 0 09/16/2015 Act rodney triamcinolone (KENALOG) 0.1 % ointment Twice A Day 0 08/07/2019 Active zinc chelated 50 mg tablet tablet Take 1 tablet by mouth daily. 0 Active UNABLE TO FIND Calcium cap once daily (unsure of strength) Pro and prebiotic One capsule per day. 0 04/27/2022 Active Active Problems No known active problems Immunizations Name Administration Dates Next Due H1N1 All Forms 11/26/2009 HZV (ZOSTAVAX) 06/27/2017 HepA Adult 05/13/2010,11/18/1998 Influenza (IM) Preservative Free 08/05/2016 Influenza TIV (IM) 08/07/2014, 3,08/18/2012,2010,07/20/2011,08/12/2010 Influenza high dose QV(65 ye ars or older) (PF) 07/28/2021 Influenza, Injectable, Mdck, Preservative Free, Quadrivalent 08/11/2018,08/22/2017 Influenza, Injectable, Quadrivalent 07/08,08/07/2014,08/06/2011,2006,09/14/2004 Influenza, Seasonal, Injectable 08/07/20 14,08/20/2013,08/18/2012,2010,07/20/2011,08/12/2010 Influenza, Unspecified 08/07/2019,2017,08/05/2016,2014,08/07/2014,08/20/2013,08/07/2012,0 08/06/2011,08/07/2007,09/14/2004 PCV13 11/22/2019 PPSV23(Discontinued) 12/29/2021,11/09/2005 Td Preservative Free (TENIVA C, DECAVAC) 10/13/2018 Td, (Adult) Unspecified 04/02/1998 Tdap 10/13/2018,10/06/2007 influenza high dose (65 year s or older) (PF) 08/07/2019,08/01/2015 influenza vaccine quad (FLUZONE/FLUARIX) (6 months and older)(PF) 08/07/2020,07/24/2014,11/26/2009 Family History Medical History Relation Name Comments Breast cancer Mother's Sister Colon cancer Mother's Sister Relation Name Status Comments Mother's Sister Social History Tobacco Use Types Packs/Day Years Used Date Smoking Tobacco: Never Smokeless Tobacco: Never Tobacco Cessation:Counseling Given: Not Answered Nutrition Answer Date Recorded Nutrition: EVOO Fat Source Unknown 01/05 Nutrition: Servings of Fruits/Vegetables per Day Not on file 01/05/2021 Dental Answer Date Recorded Dental: Regular Dentist Unknown 01/06/20 21 Sex and Gender Information Value Date Recorded Sex Assigned at Not on file Gender Identity Not on file Sexual Orientation Not on file Last Filed Vital Signs Vital Sign Reading Time Taken Comments Blood Pressure 133/88 06/11/2022 4:52 PM CDT Pulse 78 06/11/2022 4:52 PM CDT Temperature 36.1 ??C (97 ??F) 06/11/2022 4:52 PM CDT Respiratory Rate 18 06/11/2022 4:52 PM CDT Oxygen Saturation 97% 06/11/2022 4:52 PM CDT Inhaled Oxygen Concentration - - Weight 64.4 kg (141 lb 15.6 oz) 06/11/2022 4:53 PM CDT Height - - Body Mass Index - - Plan of Treatment Health Maintenance Due Date Last Done Comments Bone Density Scan (Osteoporo sis Screen) 1954 CT Colonography 1954 Cologuard 1955 Colonoscopy 1954 Colorectal Cancer Screening 1954 FIT 1954 Hepatitis C Screening 1955 Mammogram 1955 Zoster Vaccines (2 of 3) 08/22/2017 06/27/2017 Fasting Glucose for Diabetes Screening 09/07/2021 09/07/2018, 09/01/2018, 09/01/2018, Additional history exists COVID-19 Vaccine (5 - 2022-2 4 season) 2023 08/30/2022, 09/14/2021, 01/23/2021, Additional history exists Depression Screening (Annual PHQ-2) 11/07/2023 Fall Risk Screen (Annual) 11/07/2023 DTaP,Tdap,and Td Vaccines (4 - Td or Tdap) 10/13/2028 10/13/2018, 10/13/2018, 10/06/2007, Additional history exists Cervical Cancer Screening Discontinued 11/22/2019 Pneumococcal vaccine (65+ years) Completed 12/29/2021, 11/22/2019, 11/09/2005 Influenza Vaccine Completed 09/12/2023, , 07/28/2021, Additional history exists Care Teams Integrated Campaign Manager Relationship Specialty Start Date End Date Elsewhere, Pcp PCP - General Family Medicine 09/07/18
--- OUTSIDE RECORDS SUMMARY | 2023-12-28 11:22 | XMS_ITS | Encounter Summary ---
Author Name Unknown Organization [facility] Address [address] [place] [address] Care Team Providers Care Malted Milk Masher Name Role Phone Zara Yung MD Primary Care Provider Unavail able [facility] Unavailable Unavailable Anthony Terrell MD Unavailable Sandra Mccracken MD Primary Care Provider [phone] [facility] Unavailable Reason for Visit * Reason Onset Date Comments Cardiac Rhythm Problem 09/09/2015 Encounter Details Date Type Department Care Team (Late st Contact Info) Description 09/09/2015 Nurse Triage [facility] [address] [address] Zara Yung MD Social History Tobacco Use Types Packs/Day Years Used Date Smoking Tobacco: Never Smokeless Tobacco: Never Alcohol Use Standard Drinks/Week Comments Yes 0.8 (1 standard drink = 0.6 oz p ure alcohol) occ Sex and Gender Information Value Date Recorded Sex Assigned at Not on file Gender Identity Not on file Sexual Orientation Not on file documented as of this encounter Miscellaneous Notes * Telephone Encounter - Corrina Curran RN - 09/09/2015 10:45 AM CST 09/09/15 CARE ACCESS Patient phoned with concerns for racing heart with pounding in her throat. Reported dizziness, lightheadedness, weakness, ickiness and sweating that has been coming and going for the past couple weeks and is worse upon exertion. Reported it took her a couple of hours to calm down yesterday after mowing her lawn. Denied any chest pain, SOB. Manager Management strongly suggested 3 times that pt be seen in ED right away. Unsure if pt will be seen as she stated she is feeling better today. Corrina Curran RN Protocol: HEART RATE AND HEART BEAT [id number] 1. DESCRIPTION: Please describe your heart rate or heart beat that you are having (e.g., fast/slow, regular/irregular, skipped or extra beats, palpitations) Response: fluttering and racing 2. ONSET: When did it start? (Minutes, hours or days) Response: last couple weeks 3. DURATION: How long does it last (e.g., seconds, minutes, hours) Response: minutes to hours 4. PATTERN Does it come and go, or has it been constant since it started? Does it get worse withexertion? Are you feeling it now? Response: worse upon exertion, fluttering just shows up 5. TAP: Using your hand, can you tap out what you are feeling on a chair or table in front of you,so that I can hear? (Note: not all patients can do this) Response: na 6. HEART RATE: Can you tell me your heart rate? How many beats in 15 seconds? (Note: not all patients can do this) Response: feels rapid 7. RECURRENT SYMPTOM: Have you ever had this before? If so, ask: When was the last time? and What happened that time? Response: no 8. CAUSE: What do you think is causing the palpitations? Response: unsure 9. CARDIAC HISTORY: Do you have any history of heart disease? (e.g., heart attack, angina, bypasssurgery, angioplasty, arrhythmia) Response: no 10. OTHER SYMPTOMS: Do you have any other symptoms? (e.g., dizziness, chest pain, sweating, difficulty breathing) Response: weakness, ickiness, dizzy, sweaty, 11. : Is there any chance you are ? When was your last menstrual period? Response: na Negative: Passed out (i.e., lost consciousness, collapsed and was not responding) Negative: Shock suspected (e.g., cold/pale/clammy skin, too weak to stand) Negative: Difficult to awaken or acting confused (e.g., disoriented, slurred speech) Negative: Visible sweat on face or sweat dripping down face Negative: Unable to walk, or can only walk with assistance (e.g., requires support) Negative: [1] Received SHOCK from implantable cardiac defibrillator AND [2] persisting symptoms (i.e., palpitations, lightheadedness) Negative: Sounds like a life-threatening emergency to the triager Negative: Chest Pain Affirmative: Dizziness, lightheadedness, or weakness Disposition of Emergency Department suggested. CORRECTION HAND documented in this encounter Plan of Treatment Not on file documented as of this encounter Visit Diagnoses Not on filedocumented in this encounter Care Teams Malted Milk Masher Relationship Specialty Start Date End Date Zara Yung MD PCP - General 03/03/10 03/10/16 [facility] PCP - Primary Care Clinic 03/03/10 Anthony Terrell MD PCP - Ceramic Plater Cardiology 01/18/12 Sandra Mccracken MD PCP - General Family Medicine 03/11/16 07/06/[address] [address] PCP - Primary Care Clinic 09/02/1611/15 documented as of this encounter
--- OUTSIDE RECORDS SUMMARY | 2023-12-28 11:22 | XMS_ITS | Clinical Summary ---
Author Name Unknown Organization [facility] Address [address] [place] [address] Care Team Providers Care Tomography Technologist Name Role Phone Anthony Terrell MD Unavailable Allergies Active Allergy Reactions Criticality Noted Date Comments Erythromycin Abdominal pain 06/28/2011 severe Perflutren Lipid Microspheres Medium 02/16/2016 Other reaction(s): Myalgia Lower back pain Medications Medication Sig Dispensed Refills Start Date End Date Status multivitamin Oral Tab Take 1 Tab by mouth daily. Active cholecalciferol, Vitamin D3, (VITAMIN D) 1,000 unit Oral Tab Take 2 Tabs by mouth Once Daily. Active polyethylene glycol (MIRALAX) 17 gram oral PwPk as needed. 09/16/2015 Active zolpidem (AMBIEN) 5 mg oral tabletIndications:P ersistent disorder of initiating or maintaining sleep TAKE ONE-HALF TABLET BY MOUTH EVERY EVENING AT BEDTIME 45 tablet 3 05/16/2018 Active amitriptyline (ELAVIL) 10 mg oral tabletIndications:P ersistent disorder of initiating or maintaining sleep TAKE 3 TABLETS BY MOUTH EVERY NIGHT AT BEDTIME 270 tablet 06/06/2018 Active omeprazole (PRILOSEC) 20 mg oral delayed release capsuleIndications: Gastroesophageal reflux disease, esophagitis presence not specified TAKE 1 CAPSULE BY MOUTH DAILY NEEDED 90 capsule 06/06/2018 Active cephalexin (KEFLEX) 500 mg oral capsuleIndications: Cellulitis of back except buttock Take 1 capsule (500 mg) by mouth three times a day. 21 capsule 06/26/2018 Active clobetasol 0.05% (TEMOVATE) 0.05 % Top cream cream Apply 1 Application to skin twice a day. As needed for bug bites. 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 Arrythmia Cardiac evaluation 09/2015 underway Actinic keratosis, hx of 02/07/2015 Overview: Left forearm 01/19 Insomnia 07/26/2014 Overview: Chronic med ambien use low dose no change for several yrs Also on elavil nightly for fibro Benign thyroid cyst 03/14/2014 Overview: Aspiration 2014 Needs yrly GERD (gastroesophageal reflux disease) 3 Breath shortness 01/18/2012 Overview: Reassuring eval heart CT Pulm See Dr Weiss notes 01/2012 Fibromyalgia syndrome 06/28/2011 Unspecified vitamin D deficiency 05/13/2010 Overview: 2009 back to normal Mitral valve disorders 04/14/2010 Overview: Minimal insufficiency Persistent disorder of initiating or maintaining sleep 04/14/2010 Irritable bowel syndrome 04/14/2010 Postmenopausal atrophic vaginitis 04/14/2010 Unspecified disorder of the teeth and supporting structures 03/03/2010 Overview: TMJ arthritis Pain in thoracic spine 07/22/2009 Disturbance of skin sensation 01/06/2009 Resolved Problems Problem Noted Date Diagnosed Date Resolved Date Abdominal pain, right lower quadrant 03/03/2010 06/29/2011 Rash and other nonspecific skin eruption 03/03/2010 06/29/2011 Acute pharyngitis 08/01/2009 06/29/2011 Inflamed seborrheic keratosis 02/07/2009 06/29/2011 Abnormal involuntary movements(781.0) 01/06/2009 06/29/2011 Dizziness and giddiness 01/06/200906/08 Immunizations Name Administration Dates Next Due 2011- Fluzone, 3 Yrs & Old er (0.5 mL) 08/07/20122012- Fluzone MDV, 6 mos & Older 08/20/2013 Hepatitis A, Adult 05/13/2010,11/18/1998 Influenza 08/05/2016, 4,08/06/2011,2006,09/14/2004 Influenza, high dose 08/01/2015 Pneumococcal 23-Nichole (Pneumovax) 11/09/2005 TDaP 11-64 yrs (Adacel) 10/06/2007 Td >7 Yrs 04/02/1998 Zostavax 06/27/2017 Family History Medical History Relation Comments High Cholesterol Father Breast Cancer Maternal Aunt 1 age 67 Colon Cancer Maternal Aunt 2 age 68 Heart Disease Maternal Grandmother Grandfather -NH in his 50's Ovarian Cancer Maternal Grandmother High Blood Pressure Mother High Cholesterol Mother Other Disease Sister carcinoid of edson endix-age 45 Relation Status Comments Father Alive Maternal Aunt 1 Maternal Aunt 2 Maternal Grandmother Mother Alive Sister Social History Tobacco Use Types Packs/Day Years Used Date Smoking Tobacco: Never Smokeless Tobacco: Never Tobacco Cessation:Counseling Given: No Alcohol Use Standard Drinks/Week Comments Yes 0.8 (1 standard drink = 0.6 oz p ure alcohol) occ PHQ-2 Answer Date Recorded PHQ-2 Score 0 09/20/2018 Sex and Gender Information Value Date Recorded Sex Assigned at Not on file Gender Identity Not on file Sexual Orientation Not on file Last Filed Vital Signs Vital Sign Reading Time Taken Comments Blood Pressure 100/70 07/07/2018 1:34 PM CDT Pulse 70 06/06/2018 9:44 AM CDT Temperature 36.7 ??C (98.1 ??F) 07/07/2018 1:34 PM CD T Respiratory Rate 16 06/06/2018 9:44 AM CDT Oxygen Saturation 95% 02/21/2017 2:29 PM CDT Inhaled Oxygen Concentration - - Weight 67.5 kg (148 lb 14.4 oz) 07/07/2018 1:34 PM CDT Height 165.1 cm (5' 5) 07/07/2018 1:34 PM CDT Body Mass Index 24.78 07/07/2018 1:34 PM CDT Plan of Treatment Health Maintenance Due Date Last Done Comments Depression Assessment (PHQ-2) 1956 RSV (1 - 1-dose 60+ series) 2014 Zoster Vaccine (2 of 3) 08/22/2017 06/27/2017 Adult Tetanus Booster 10/06/2017 10/06/2007, 998 Mammogram Screening 04/20/2018 04/20/2017, 04/14/2016, 04/03/2015, Additional history exists Dexa Scan 08/16/2018 08/16/2016 Yearly Review of HCD 09/12/2018 09/12/2017, 02/21/2017, 12/21/2016, Additional history exists Pneumococcal 65+ (2 of 2 - PCV) 2019 6 Colonoscopy 05/04/2020 05/04/2010 (Prev iously completed) Lipid Screening 09/12/2022 09/12/2017, 07/09, 05/13/2010 COVID-19 Vaccine ( - 2022-2 4 season) 2023 Influenza Vaccine (#1) 2023 7, 08/05/2016, 08/01/2015, Additional history exists Hepatitis C Screening Completed 08/05/2016 Procedures Procedure Name Priority Date/Time Associated Diagnosis Comments LIPID PROFILE CASCADE Routine 09/12/2017 2:19 PM AUTOMOBILE SPRING REPAIRER Lipid screening HEP C ANTIBODY Routine 08/05/2016 8:57 AM CDT Special screening for other specified conditions(V82.89) MAMMO DIGITAL SCREENING BI Routine 03/16/2011 5:10 PM CDT Other screening mammogram from Last 3 Months or Most Recently Relevant to Health Maintenance Results * (ABNORMAL) LIPID PROFILE CASCADE (09/12/2017 2:19 PM AUTOMOBILE SPRING REPAIRER) SPECIMEN TYPE Fasting 09/12/2017 10:14 PM [facility] CHOLESTEROL 255(H) <200 mg/dL 09/12/2017 10:14 PM [facility] Triglycerides Profile 83 <150 mg/dL 09/12/2017 10:14 PM [facility] LDL CHOL, CALC 151(H) <100 mg/dL 09/12/2017 10:14 PM [facility] HDL CHOLESTEROL 87 >40 mg/dL 7 10:14 PM [facility] CHOL/HDL RATIO 2.9 0.0 - 4.9 09/12/2017 10:14 PM [facility] Blood Venipuncture / Unknown 09/12/2017 2:19 PM AUTOMOBILE SPRING REPAIRER 09/12/2017 2:19 PM [facility] - 09/12/2017 10:14 PM [facility] LDL CHOLESTEROL REFERENCE RANGES: (FOR PATIENTS W/O HEART DISEASE) <100 mg/dL = Optimal 100-129 mg/dL = Near/Above Optimal 130-159 mg/dL = Borderline High 160-189 mg/dL = High >/= 190 mg/dL = Very High Sandra Mccracken MD CHEMISTRY ORDERABLE Performing Organization Address City/[facility]/ZIP Co de Phone Number [facility] [address] [facility] [place] [address] * HEP C ANTIBODY (08/05/2016 8:57 AM CDT) Hepatitis C Antibody Non-Reacti ve Non-Reacti ve 08/05/2016 6:35 PM CDT [facility] Blood Venipuncture / Unknown 08/05/2016 8:57 AM CDT 08/05/2016 8:57 AM CDT Sandra Mccracken MD IMMUNOLOGY ORDERABLE [facility] [address] [place] [address] * MAMMO DIGITAL SCREENING BI (03/16/2011 5:10 PM CDT) Anatomical Region Laterality Modality Breast Bilateral Mammography 03/16/2011 5:12 PM CDT Impressions 03/16/2011 8:13 PM CDT #[id number] - MAMMO DIGITAL SCREENING BI # BILATERAL DIGITAL SCREENING MAMMOGRAM WITH CAD: 03/16/2011 COMPARISON: Comparison is made to exam dated: ??01/31/2009 mammogram - [facility]. ?? FINDINGS: There are scattered fibroglandular elements in the both breasts. ?? Current study was also evaluated with a Computer Aided Detection (CAD) system. ?? No significant masses, calcifications, or other findings are seen in either breast. ?? There has been no significant interval change. IMPRESSION: NEGATIVE There is no mammographic evidence of malignancy. ??A 1 year screening mammogram is recommended. The patient will be notified of the results by mail. ?? Tamir Whelan M.D. ? dio/tyler:03/16/2011 20:13:23 ?? letter sent: BI-RADS 1/2 Normal Letter ?? Mammogram BI-RADS: 1 Negative Narrative Procedure Note Tamir Whelan MD - 03/17/2011 #[id number] - MAMMO DIGITAL SCREENING BI # BILATERAL DIGITAL SCREENING MAMMOGRAM WITH CAD: 03/16/2011 COMPARISON: Comparison is made to exam dated: 01/31/2009 mammogram - [facility]. FINDINGS: There are scattered fibroglandular elements in the both breasts. Current study was also evaluated with a Computer Aided Detection (CAD)system. No significant masses, calcifications, or other findings are seen ineither breast. There has been no significant interval change. IMPRESSION: NEGATIVE There is no mammographic evidence of malignancy. A 1 year screeningmammogram is recommended. The patient will be notified of the results by mail. Tamir wharton/tyler:03/16/2011 20:13:23 letter sent: BI-RADS 1/2 Normal Letter Mammogram BI-RADS: 1 Negative Zara Yung MD MAMMO ORDERABLE from Last 3 Months or Most Recently Relevant to Health Maintenance Advance Directives For more information, please contact: [phone] Latest Code Status on File Code Status Date Activated Date Inactivated Comments Full Code 08/05/2016 8:44 AM Question Answer Comments How was code status determined? Patient Care Teams Tomography Technologist Relationship Specialty Start Date End Date Anthony Terrell MD PCP - Biometrics Specialist Cardiology 01/18/12
--- OUTSIDE RECORDS SUMMARY | 2023-12-28 11:22 | XMS_ITS ---
Author Name Unknown Organization [facility] Address [address] [place] [address] Care Team Providers Care Crucible Packer Name Role Phone Unavailable Unavailable Unavailable Surgery Details Not on file Complications Check Surgery Details section. Procedure Estimated Blood Loss Check Surgery Details section. Procedure Findings Check Surgery Details section. Procedure Specimens Taken Check Surgery Details section.
--- OUTSIDE RECORDS SUMMARY | 2023-12-28 11:22 | XMS_ITS | Referral Summary ---
Author Name Unknown Organization [facility] Address [address] [place] [address] Care Team Providers Care Grounding Engineer Name Role Phone Anthony Terrell MD Unavailable [...] 10/06/2007 Td >7 Yrs 04/02/1998 Zostavax 06/27/2017 Social History Tobacco Use Types Packs/Day [...] 07/07/2018 1:34 PM CDT Plan of Treatment Not on file Procedures Procedure Name Priority Date/Time Associated Diagnosis Comments LIPID PROFILE CASCADE Routine 09/12/2017 2:19 PM DESIGN ENGINEER Lipid screening HEP C ANTIBODY Routine 08/05/2016 8:57 AM CDT Special screening for other specified conditions(V82.89) MAMMO DIGITAL SCREENING BI Routine 03/16/2011 5:10 PM CDT Other screening mammogram from Last 3 Months or Most Recently Relevant to Health Maintenance Results * (ABNORMAL) LIPID PROFILE CASCADE (09/12/2017 2:19 PM DESIGN ENGINEER) SPECIMEN TYPE Fasting 09/12/2017 10:14 PM [facility] CHOLESTEROL 255(H) <200 mg/dL 09/12/2017 10:14 PM [facility] Triglycerides Profile 83 <150 mg/dL 09/12/2017 10:14 PM [facility] LDL CHOL, CALC 151(H) <100 mg/dL 09/12/2017 10:14 PM [facility] HDL CHOLESTEROL 87 >40 mg/dL 7 10:14 PM [facility] CHOL/HDL RATIO 2.9 0.0 - 4.9 09/12/2017 10:14 PM [facility] Blood Venipuncture / Unknown 09/12/2017 2:19 PM DESIGN ENGINEER 09/12/2017 2:19 PM [facility] - 09/12/2017 10:14 PM [facility] LDL CHOLESTEROL REFERENCE RANGES: (FOR PATIENTS W/O HEART DISEASE) <100 mg/dL = Optimal 100-129 mg/dL = Near/Above Optimal 130-159 mg/dL = Borderline High 160-189 mg/dL = High >/= 190 mg/dL = Very High Sandra Mccracken MD CHEMISTRY ORDERABLE [facility] [address] [place] [address] * HEP C ANTIBODY (08/05/2016 8:57 AM CDT) Hepatitis C Antibody Non-Reacti ve Non-Reacti ve 08/05/2016 6:35 PM CDT [facility] Blood Venipuncture / Unknown 08/05/2016 8:57 AM CDT 08/05/2016 8:57 AM CDT Sandra Mccracken MD IMMUNOLOGY ORDERABLE [facility] [address] [address] * MAMMO DIGITAL SCREENING BI (03/16/2011 5:10 PM CDT) Anatomical Region Laterality Modality Breast Bilateral Mammography 03/16/2011 5:12 PM CDT Impressions 03/16/2011 8:13 PM CDT #[id number] - MAMMO DIGITAL SCREENING BI # BILATERAL DIGITAL SCREENING MAMMOGRAM WITH CAD: 03/16/2011 COMPARISON: Comparison is made to exam dated: ??01/31/2009 mammogram - [facility]. ?? FINDINGS: There are scattered fibroglandular [...] Procedure Note Tamir Whelan MD - 03/17/2011 #[id number] - MAMMO DIGITAL SCREENING BI # BILATERAL DIGITAL SCREENING MAMMOGRAM WITH CAD: 03/16/2011 COMPARISON: Comparison is made to exam dated: 01/31/2009 mammogram - [facility]. FINDINGS: There are scattered fibroglandular elements in [...] or Most Recently Relevant to Health Maintenance Administered Medications Advance Directives For more information, please contact: [phone] Latest Code Status on File Code Status Date Activated Date Inactivated Comments Full Code 08/05/2016 8:44 AM Question Answer Comments How was code status determined? Patient Care Teams Grounding Engineer Relationship Specialty Start Date End Date Anthony Terrell MD PCP - Outer Diameter Grinder Tool Cardiology 01/18/12
--- OUTSIDE RECORDS SUMMARY | 2023-12-28 11:22 | XMS_ITS | Referral Summary ---
Author Name Unknown Organization [facility] Address [address] [place] [address] Care Team Providers Care Continuing Education Instructor Name Role Phone Elsewhere, Pcp Primary Care Provider Unavailabl e Source Comments Patient records contain information from all sites at [facility]. For routine questions regarding patient records, call [phone] during business hours, M-F 8:00 AM - 5:00 PM Central Time. Record requests for emergency care only can be directed to [phone] at any time.[facility] Allergies Active Allergy Reactions Criticality Noted Date [...] quad (FLUZONE/FLUARIX) (6 months and older)(PF) 08/07/2020,07/24/2014,11/26/2009 Social History Tobacco Use Types Packs/Day Years [...] of Treatment Not on file Care Teams Continuing Education Instructor Relationship Specialty Start Date End Date Elsewhere, Pcp PCP - General Family Medicine 09/07/18
--- NOTE | 2023-12-28 11:30 | MM_ITS ---
Patient: CARLOS ONEAL Facility:?[facility] RIS Patient ID:?[id number] Site Patient ID:?[id number]. Site :?1955 Study:?XRay-Breast Bilateral 3D W/CAD-12/28/2023 11:42:57 AM Ordering Physician:?Mary Ruiz Final Report: BILATERAL SCREENING MAMMOGRAM WITH COMPUTER-AIDED DETECTION AND TOMOSYNTHESIS TECHNIQUE: CC and MLO views were obtained. These mammographic images have been obtained using full-field digital technique. These mammographic images were interpreted with the benefit of computer-aided detection. Breast Tomosynthesis was used in this interpretation. COMPARISON FILM: 12/27/22, 12/22/21, 11/28/20. FINDINGS: There are scattered areas of fibroglandular density. IMPRESSION: There is no radiographic evidence for malignancy. ASSESSMENT: BI-RADS Category 1: Negative RECOMMENDATION: Routine screening mammogram in 1 year. A lay language report of this examination will be provided to the patient. Oliver Garcia M.D. Diagnostic/Nuclear Medicine Radiologist [email or web address] Transcribed: 2:07 pm SP/Dictated by: Oliver Garcia MD @ 12/29/2023 10:42:00 AM Signed by:Jannette Garcia MD @12/29/2023 3:31:35 PM (Electronic Signature)
== END 2023-12-28 11:19 | disposition home or self-care (01) ==
LOC: MAMMO 11:19
PROVIDERS: PCP Family Medicine; Visit Provider Family Medicine
DX: Z12.31 Encounter for screening mammogram for malignant neoplasm of breast (principal)
CPT/HCPCS: 77063; 77067

== ENCOUNTER 2024-02-07 14:04 | Outpatient (CLI) | payer MEDICARE, SELFPAY | END 2024-02-07 14:05 | disposition home or self-care (01) | PROVIDERS: PCP Family Medicine; Visit Provider Family Medicine | DX: E78.5 Hyperlipidemia, unspecified (principal); M81.0 Age-related osteoporosis without current pathological fracture; E55.9 Vitamin D deficiency, unspecified; Z13.1 Encounter for screening for diabetes mellitus | CPT/HCPCS: 80061; 82306; 82947 ==

== ENCOUNTER 2024-03-22 13:59 | Outpatient (CLI) | payer MEDICARE, SELFPAY ==
--- NOTE | 2024-03-22 14:00 | XR_ITS ---
Patient: CARLOS ONEAL Facility:?[facility] Patient ID:?[id number] Site Patient ID:?[id number]. Site :?1955 Study:?DEXA-Bone Density -03/22/2024 2:30:16 PM Ordering Physician:DEEPTI Final Report: DXA BONE MINERAL DENSITY STUDY Current height (in): 65.0. Weight (lb): 138.0. Menopause age: 51. Ethnicity: White. Reason for exam: Osteoporosis. 1. Have you had a previous hip or vertebral fracture? No. 2. Have you had any fractures during your adult life which did not result from significant trauma (e.g., auto accident)? No. 3. Did either of your parents have a hip fracture? No. 4. Do you smoke? No. 5. Have you ever taken Glucocorticoids? No. 6. Do you have rheumatoid arthritis? No. 7. Do you have secondary osteoporosis? No. 8. Do you drink 3 or more alcoholic drinks per day? No. 9. Are you being treated for osteoporosis? Yes. 10. Have you ever taken any of the following medications: Actonel, Evista, Fosamax, Miacalcin, Reclast, Boniva, Forteo, HRT (i.e. estrogen/hormone therapy), Protelos, Prolia, Vitamin D, Calcium, other ? please specify. ANSWER: Yes, Fosamax, vitamin D. 11. Do you have any of the following medical conditions: Anorexia or bulimia, asthma or emphysema, end stage renal disease, hyperparathyroidism, any seizure disorders, cancer, inflammatory bowel diseases, hysterectomy, other ? please specify. ANSWER: No. 12. What was your maximum height (inches)? 66. 13. Do you perform weight bearing exercise regularly? Yes. 14. Do you regularly consume dairy products? No. 15. Do you drink caffeinated beverages? No. 16. At what age did your period start? 12. 17. Are you premenopausal? No. 18. How many full-term pregnancies have you had? 2. 19. Have you ever missed your period for more than 6 months in a row (not including or menopause)? No. TECHNIQUE: Bone mineral density study was performed using the [employer]. FINDINGS: The results of the study expressed as bone mineral density (BMD) are as follows: Lumbar spine L1 to L4: BMD: 0.664 g/cm2. T-score: -3.5. Z-score: -1.4 Neck Left: BMD: 0.619 g/cm2. T-score: -2.1. Z-score: -0.3 Right: BMD: 0.618 g/cm2. T-score: -2.1. Z-score: -0.3 Total Left: BMD: 0.737 g/cm2. T-score: -1.7. Z-score: -0.2 Right: BMD: 0.787 g/cm2. T-score: -1.3. Z-score: 0.2 IMPRESSION: Osteoporosis. *Comparison exams done prior to 04/2020 were performed on different unit, [facility]. COMPARISON: Compared with scan of 03/25/2021, the bone mineral density has decreased by 0.5 percent at the spine and increased by 0.2 percent at the hip. Bryan Pringle M.D. Diagnostic Radiologist [email or web address] DSM/tylerw: D& Transcribed: 11:40 am DW/Dictated by: Bryan Pringle MD @ 03/23/2024 10:42:00 AM Signed by:?Bryan Pringle MD @03/23/2024 12:59:15 PM (Electronic Signature)
--- OUTSIDE RECORDS SUMMARY | 2024-03-22 14:02 | XMS_ITS | Clinical Summary ---
Author Name Unknown Organization [facility] Address [address] [place] [address] Care Team Providers Care Pipe Setter Name Role Phone No Ref-Primary, Physician Primary [...] MG tablet Take 70 mg by mouth 12/26/2020 Activ e amitriptyline (ELAVIL) 10 MG tablet Take 40 mg by mouth 12/26/2020 Activ e vitamin C (ASCORBIC ACID) 500 MG tablet Daily Activ e cholecalciferol 25 MCG (1000 UT) TABS 2,000 Units Activ e metoprolol tartrate (LOPRESSOR) 25 MG tablet Take 12.5 mg by mouth 01/13/2021 Act rodney nitroGLYcerin (NITROSTAT) 0.[address] 0.4 mg under the tongue 02/11/2022 Active polyethylene glycol (MIRALAX) 17 GM/Dose powder Daily Active zinc gluconate 50 MG tablet Take 1 tablet by mouth daily Active zolpidem (AMBIEN) 5 MG tablet Take 2.5 mg by mouth 12/26/2020 Acti ve nirmatrelvir and ritonavir (PAXLOVID) therapy packIndications:Liyah pected COVID-19 virus infection Take 3 tablets by mouth 2 times daily Take 2 Nirmatrelvir tablets and 1 Ritonavir tablet twice daily for 5 days. 30 each 02/27/2022 Active Social History Tobacco Use Types [...] Vaccine ( season) 2023 09/14/2021, 01/23/2021, 12/26/2020 PHQ-2 (once per calendar year) 2023 INFLUENZA VACCINE (Season Ended) 2024 08/17/2022, 07/28/2021, 08/07/2020, Additional history exists DTAP/TDAP/TD IMMUNIZATION (4 - Td or Tdap) [...] Procedure Name Priority Date/Time Associated Diagnosis Comments COLONOSCOPY Routine 08/10/2005 7:30 AM CDT from Last 3 Months or Most Recently Relevant to Health Maintenance Results * COLONOSCOPY (08/10/2005 7:30 AM CDT) [facility] Signature COLONOSCOPY [facility] Endoscopy Department Patient Name: Shalini Victoria ? Gender: F ? Procedure Date: 08/10/2005 7:30 AM ? SSN: [id number] ?Date of : 1955 ? Age: 50 ? Admit Type: Outpatient ? Room: 6 ? Note Status: Finalized ?Attending MD: Gilbert Landaverde ? Procedure: ?Colonoscopy Indications: ?Abdominal distress/pain in the left lower quadrant, Avg risk ?screening for malignant neoplasm in the colon. Prior history ?of polyps (type unknown) and remote family history (aunt in ?her 70's). Providers: ?Gilbert Landaverde MD, Cheryl Contreras, RN Referring MD: ?? Zara Yung MD Medicines: ?Fentanyl IV 150 mcgs, Versed IV 3 mgs Complications: ??No immediate complications Procedure: ?- A History and Physical has been performed, and patient ?medication allergies have been reviewed. The patient The ?risks and benefits of the procedure and the sedation options ?and risks were discussed with the patient. All questions were ?answered and informed consent was obtained. Patient ?identification and proposed procedure were verified prior to ?the procedure by the physician in the procedure room. Mental ?Status Examination: normal. Airway Examination: normal ?oropharyngeal airway and neck mobility. Respiratory ?Examination: clear to auscultation. CV Examination: RRR, no ?murmurs, no S3 or S4. ASA Grade Assessment: P1 A normal ?healthy patient. After reviewing the risks and benefits, the ?patient was deemed in satisfactory condition to undergo the ?procedure. The anesthesia plan was to use moderate sedation / ?analgesia (conscious sedation). Immediately prior to ?administration of medications, the patient was re-assessed ?for adequacy to receive sedatives. The heart rate, ?respiratory rate, oxygen saturations, blood pressure, ?adequacy of pulmonary ventilation, and response to care were ?monitored throughout the procedure. The physical status of ?the patient was re-assessed after the procedure. ?After obtaining informed consent, the colonoscope was passed ?under direct vision. Throughout the procedure, the patient's ?blood pressure, pulse, and oxygen saturations were monitored ?continuously. The [id number] noscope was introduced ?through the anus and advanced to the cecum, identified by ?appendiceal orifice & IC valve. The colonoscopy was ?accomplished without difficulty. The patient tolerated the ?procedure fairly well. The quality of the prep was good. ? Findings: ? A few small-mouthed diverticula were found in the sigmoid colon. The ? colon (entire examined portion) was normal. ? Impression: ? - Minor sigmoid colon diverticulosis. ?- The colon is otherwise normal and healthy in appearance. Recommendation: - Discharge patient to home (ambulatory). ?- Repeat colonoscopy in 5-10 years for surveillance of ?previously identified colon polyps. ?- Return to referring provider PRN. ? CPT Code(s): ?18545, Colonoscopy, flexible, proximal to splenic flexure; ?diagnostic, with or without collection of specimen(s) by ?brushing or washing, with or without colon decompression ?(separate procedure) ICD Code(s): ?789.04, Abdominal Pain, Left Lower Quadrant ?V76.51, Special Screening For Malignant Neoplasms, Colon The codes documented in this report are preliminary and upon weed cooking operator review may be revised to meet current compliance requirements. Signed electronically by Gilbert Landaverde MD Gilbert Landaverde MD Signed Date: 08/10/2005 8:28 AM Number of Addenda: 0 I was physically present for the entire viewing portion of the exam. Note generated on 08/10/2005 7:31 AM RADIOLOGY RESULTS COLONOSCOPY RADIOLOG Y RESULTS 08/10/2005 7:30 AM CDT Gilbert Landaverde MD PROCEDURES RADIOLOGY RESULTS from Last 3 Months or Most Recently Relevant to Health Maintenance Care Teams Pipe Setter Relationship Specialty Start Date End Date No Ref-Primary, Physician PCP - General 02/27/22
--- OUTSIDE RECORDS SUMMARY | 2024-03-22 14:02 | XMS_ITS | Referral Summary ---
Author Name Unknown Organization [facility] Address [address] [place] [address] Care Team Providers Care Log Yard Manager Name Role Phone No Ref-Primary, Physician Primary [...] - Plan of Treatment Not on file Procedures Procedure Name Priority Date/Time Associated Diagnosis Comments COLONOSCOPY Routine 08/10/2005 7:30 AM CDT from Last 3 Months or Most Recently Relevant to Health Maintenance Results * COLONOSCOPY (08/10/2005 7:30 AM CDT) [facility] COLONOSCOPY [facility] Endoscopy Department Patient Name: Shalini Victoria ? Gender: F ? Procedure Date: 08/10/2005 7:30 AM ? SSN: [id number] ?Date of : 1955 ? Age: 50 [...] and oxygen saturations were monitored ?continuously. The [id number] noscope was introduced ?through the anus and [...] to referring provider PRN. ? CPT Code(s): ?17955, Colonoscopy, flexible, proximal to splenic flexure; ?diagnostic, with or without collection of specimen(s) by ?brushing or washing, with or without colon decompression ?(separate procedure) ICD Code(s): ?789.04, Abdominal Pain, Left Lower Quadrant ?V76.51, Special Screening For Malignant Neoplasms, Colon The codes documented in this report are preliminary and upon back digger operator review may be revised to meet [...] Recently Relevant to Health Maintenance Care Teams Log Yard Manager Relationship Specialty Start Date End Date No Ref-Primary, Physician PCP - General 02/27/22
--- OUTSIDE RECORDS SUMMARY | 2024-03-22 14:02 | XMS_ITS | Clinical Summary ---
Author Name Unknown Organization [facility] [place], [place] [address] Care Team Providers Care Machine Operator General Name Role Phone Mary Ruiz MD Primary [...] Do not lie down for 1 hr. Active zolpidem (AMBIEN) 5 mg tablet Take 2.5 mg by mouth at bedtime. Active polyethylene glycol (MIRALAX) 17 g powder [...] by mouth two times daily. 180 Tablet 04/26/2023 Active Active Problems Problem Noted Date [...] Comments Blood Pressure 103/70 10/18/2022 9:36 AM [facility] OFF[facility] Difficult to hear. Pulse 68 10/18/2022 9:33 AM MEDICAL OFFICE [facility] Temperature 36.4 ??C (97.6 ??F) 09/03/2018 8 :41 AM CDT Respiratory Rate 16 09/03/2018 8:41 AM CDT Oxygen Saturation 99% 10/18/2022 9:3 3 AM MEDICAL OFFICE [facility] Inhaled Oxygen Concentration - - Weight 63.9 kg (140 lb 14.4 oz) 10/18/2022 9:33 AM MEDICAL OFFICE [facility] Height 165.1 cm (5' 5) 10/18/2022 9:33 AM MEDICAL OFFICE ASST Body Mass Index 23.45 10/18/2022 9:33 AM MEDICAL OFFICE ASST Plan of Treatment Health Maintenance Due Date [...] 2023 08/30/2022, 09/14/2021, 01/23/2021, Additional history exists BMI (ht and wt on same day) for age 18+ 10/18/2023 10/18/2022, 04/27/2022, 01/17/2019, Additional history exists Influenza for age 65+ 07/08/2024 08/22/2017 , 08/05/2016, 08/01/2015, Additional history exists Lipids for age 45-75 10/18/2027 10/18/2022, 01/14/2020, 09/21/2018, Additional history exists Procedures Procedure Name Priority Date/Time Associated Diagnosis Comments LIPID PANEL W REFLEX MEASURED LDL Today 10/18/2022 10:31 AM MEDICAL OFFICE [facility] Mixed hyperlipidemia XR MAMMO BILAT SCREENING Routine 04/20/2017 9:23 AM CDT Visit for screening mammogram from Last 3 Months or Most Recently Relevant to Health Maintenance Results * (ABNORMAL) LIPID PANEL W REFLEX MEASURED LDL (10/18/2022 10:31 AM MEDICAL OFFICE AS[facility]) CHOLESTEROL,TOTAL 244(H) 100 - 199 mg/dL 10/18/2022 10:[address] [facility] TRIGLYCERIDES 78 <150 mg/dL 10/18/2022 10:[address] [facility] HDL CHOLESTEROL 75 >40 mg/dL 10:[address] [facility] NON-HDL CHOLESTEROL 169(H) <145 mg/dl 10/18/2022 10:[address] [facility] CHOL/HDL RATIO 3.25 <4.50 10/18/2022 10:57 AM [facility] LDL CHOLESTEROL 153(H) <=130 mg/dL 10/18/2022 10:57 AM [facility] VLDL CHOLESTEROL 16 <=30 mg/dL 10/18/20 22 10:57 AM [facility] PROVIDER ORDERED STATUS RANDOM 10/18/2022 10:[address] [facility] Blood BLOOD SPECIMEN / Unknown Venipuncture / Unknown 10/18/2022 10:31 AM [facility] OFFICE [facility] 10/18/2022 10:32 AM MEDICAL OFFICE ASST Gabriela Franklin MD CHEMISTRY [facility] [address] [place] [address] * XR MAMMO BILAT SCREENING (04/20/2017 9:23 AM CDT) Anatomical Region Laterality Modality BREASTS, Breast Left, Breast Right Bilateral Mammography Impressions 04/20/2017 11:42 AM CDT ??There is no radiographic evidence for malignancy. ??Recommend annual mammograms. A lay language report of this examination will be provided to the patient. MAMMOGRAM ASSESSMENT: ??ACR 1 Negative Narrative 04/20/2017 11:42 AM CDT XR MAMMO BILAT SCREENING [[id number]] CLINICAL HISTORY: ??This is an asymptomatic 62 y.o. patient. INDICATION FOR EXAM: Mammogram Screening. TECHNIQUE: CC & MLO views were obtained. ??This digital study was evaluated with the assistance of Computer-Aided Detection. COMPARISON FILM: Yes 04/14/16 [facility] 04/09/13 [facility] FINDINGS: ??Mammographically, the breast tissue has scattered fibroglandular densities. ??There are no dominant masses, suspicious micro calcifications or areas of architectural distortion. Sandra Mccracken MD MAMMO from Last 3 Months or Most Recently Relevant to Health Maintenance Advance Directives * Full Code (Latest Code Status on File) Date Activated Date Inactivated Comments 08/31/2018 12:56 PM 09/03/2018 4:30 PM Care Teams Machine Operator General Relationship Specialty Start Date End Date Mary Riuz MD [address] [place] [address] PCP - General Family Practice 10/24/18
--- OUTSIDE RECORDS SUMMARY | 2024-03-22 14:02 | XMS_ITS | Clinical Summary ---
Author Name Unknown Organization [facility] Address [address] [place] [address] Care Team Providers Care Slope Tender Name Role Phone Mary Ruiz MD Primary Care Provider Source Comments You are receiving this document as you are listed as the primary care provider,follow-up provider, or the patient has been referred to you for consultation.This is in compliance with the Medicare and[facility] EHR Incentive Program,which states Providers who transition their patient to another setting of careor provider of care or refers their patient to another provider of care shouldprovide summary care record for each transition of care or referral. [facility] Allergies Active Allergy Reactions Criticality Noted Date [...] Multidose Vial 0 .25 (6-35 Mos) 07/23/2015 [id number] 11/26/2009 HepA Adult (19+ yrs) 05/13/2010,11/18/1998 Influenza (Flucelvax), Prese rv Free QIV 08/11/2018,08/22/2017 Influenza IIV3 (Trivalent) F luzone Highdose, 65+ Yrs (84866) 08/07/2019,08/01/2015 Influenza IIV4 (Quadrivalent ) 0.5mL (32900) 08/07/2020,08/05/2016,08/01/2015, 014,07/24/2014,08/20/2013,08/07/2012,,11/26/2009,08/07/2007,09/14/2004 Influenza IIV4 (Quadrivalent ) Fluzone, 65+ Yrs 08/09/2022,07/28/2021 Influenza Vaccine (3+years) ([facility]) 09/19/2007 Moderna Bivalent 12+ 08/30/2022 Moderna [...] 08/30/2022, 09/14/2021, 01/23/2021, Additional history exists Influenza (Season Ended) 2024 022, 07/28/2021, 08/07/2020, Additional history exists Cholesterol 06/30/2028 06/30/2023 [...] - 199 mg/dL 06/30/2023 4:24 PM [facility] Triglyceride 66 <=149 mg/dL 06/30/2023 4:24 PM [facility] HDL Cholesterol 79 >=40 mg/dL 4:24 PM [facility] LDL, Calculated 97 <130 mg/dL 4:24 PM [facility] Non HDL Chol, Calculated 110 <=159 mg/dL 06/30/2023 4:24 PM [facility] Cholesterol/HDL Ratio 2.4 06/30/2023 4:24 PM [facility] Hours Fasting 0.1 8 - 12 Hours 06/30/2023 4:24 PM [facility] Blood Venipuncture / Unknown 06/30/2023 10:54 AM CDT 06/30/2023 10:54 AM T Gabriela Franklin MD LAB_1 [facility] [address] [place] [address], [facility] [phone] from Last 3 Months or Most Recently Relevant to Health Maintenance Care Teams Slope Tender Relationship Specialty Start Date End Date Mary Ruiz MD [address] [place] [address] PCP - General Family Practice 07/15/23
--- OUTSIDE RECORDS SUMMARY | 2024-03-22 14:03 | XMS_ITS ---
Author Name Unknown Organization [facility] Address [address] [place] [address] Care Team Providers Care Edge Cutting Machine Operator Name Role Phone Unavailable Unavailable Unavailable Surgery Details Not on file Complications Check Surgery Details section. Procedure Estimated Blood Loss Check Surgery Details section. Procedure Findings Check Surgery Details section. Procedure Specimens Taken Check Surgery Details section.
--- OUTSIDE RECORDS SUMMARY | 2024-03-22 14:03 | XMS_ITS | Clinical Summary ---
Author Name Unknown Organization [facility] Address [address] [place] [address] Care Team Providers Care Cushion Filler Name Role Phone Elsewhere, Pcp Primary Care Provider Unavailabl e Source Comments Patient records contain information from all sites at [facility]. For routine questions regarding patient records, call [phone] during business hours, M-F 8:00 AM - 5:00 PM Central Time. Record requests for emergency care only can be directed to [phone] at any time.[facility] Allergies Active [...] Take 40 mg by mouth at bedtime. 01/09/2016 Active multivitamin capsule daily. Acti ve zolpidem (AMBIEN) 5 mg tablet Take 2.5 mg by mouth at bedtime. 01/09/2016 Active alendronate (FOSAMAX) 70 mg tablet TAKE 1 TABLET BY MOUTH ONCE WEEKLY ON AN EMPTY STOMACH WITH A BIG GLASS OF WATER. DO NOT LIE DOWN FOR 60 MINUTES AFTERWARDS. 06/24/2021 Active ascorbic acid, vitamin C, (VITAMIN C) 1,000 mg tablet Take 1 tablet by mouth daily. Active aspirin 81 mg chewable tablet Chew 1 tablet daily. 09/02/2018 Active cholecalciferol, vitamin D3, 25 mcg (1,000 Unit) tablet 2,000 Units daily. Active metoprolol tartrate (LOPRESSOR) 25 mg tablet Take 12.5 mg by mouth 2 (two) times a day. 01/13/2021 Active nitroglycerin (NITROSTAT) 0.[address] 0.4 mg under the tongue. 01/23/2020 Active polyethylene glycol (MIRALAX) 17 gram/dose oral powder 17 g. 09/16/2015 Act rodney triamcinolone (KENALOG) 0.1 % ointment Twice A Day 08/07/2019 Active zinc chelated 50 mg tablet tablet Take 1 tablet by mouth daily. Active UNABLE TO FIND Calcium cap once daily (unsure of strength) Pro and prebiotic One capsule per day. 04/27/2022 Active Active Problems No known active [...] 14,08/20/2013,08/18/2012,2010,07/20/2011,08/12/2010 Influenza, Unspecified 08/07/2019,2017,08/05/2016,2014,08/07/2014,08/20/2013,08/07/2012,0 08/06/2011,08/07/2007,09/14/2004 PCV13 11/22/2019 PPSV23 12/29/2021,11/09/2005 Td Preservative Free (TENIVA C, DECAVAC) [...] Completed 09/12/2023, , 07/28/2021, Additional history exists Procedures Procedure Name Priority Date/Time Associated Diagnosis Comments BASIC METABOLIC PANEL, S/P Routine 09/07/2018 3:11 PM CDT Other Chest Pain from Last 3 Months or Most Recently Relevant to Health Maintenance Results * Basic Metabolic Panel (09/07/2018 3:11 PM CDT) Pathologist [facility] Potassium, S 4.6 3.6 - 5.2 mmol/L 09/07/2018 4:37 PM CDT [facility] Sodium, S 142 135 - 145 mmol/L 09/07/2018 4:37 PM CDT [facility] Chloride, S 104 98 - 107 mmol/L 09/07/2018 4:37 PM CDT [facility] Bicarbonate, S 25 22 - 29 mmol/L 09/07/2018 4:37 PM CDT [facility] Anion Gap 13 7 - 15 09/07/2018 4:37 PM CDT [facility] BUN (Blood Urea Nitrogen), S 14 6 - 21 mg/dL 09/07/2018 4:37 PM CDT [facility] Creatinine 0.85 0.59 - 1.04 mg/dL 09/07/2018 4:37 PM CDT [facility] eGFR-Non Black/ 73 >=60 mL/min/BSA 09/07/2018 4:37 PM CDT [facility] Comment: ----ADDITIONAL INFORMATION---- Estimated GFR calculated using the 2009 CKD_EPI creatinine equation. eGFR-Black/Afri can [place] 84 >=60 mL/min/BSA 09/07/2018 4:37 PM CDT [facility] Comment: ----ADDITIONAL INFORMATION---- Estimated GFR calculated using the 2009 CKD_EPI creatinine equation. Calcium, Total, S 9.5 8.8 - 10.2 mg/dL 09/07/2018 4:37 PM CDT [facility] Glucose, S 94 70 - 140 mg/dL 09/07/2018 4:37 PM CDT [facility] Blood (Blood, Venous) 09/07/2018 3:11 PM CDT 09/07/2018 3:15 PM CDT Oliver Schaeffer M.D. LAB BLOOD ADD-ON [facility] [address] [place] [address], [facility] from Last 3 Months or Most Recently Relevant to Health Maintenance Care Teams Cushion Filler Relationship Specialty Start Date End Date Elsewhere, Pcp PCP - General Family Medicine 09/07/18
--- OUTSIDE RECORDS SUMMARY | 2024-03-22 14:03 | XMS_ITS | Clinical Summary ---
Author Name Unknown Organization [facility] Address [address] [place] [address] Care Team Providers Care Fruit Farmworker Name Role Phone Anthony Terrell MD Unavailable [...] Fluzone MDV, 6 mos & Older 08/20/2013 Hep A Adult 05/13/2010,11/18/1998 Influenza 08/05/2016, 4,08/06/2011,2006,09/14/2004 Influenza High Dose 08/01/2015 Pneumococcal PPSV23 11/09/2005 TDaP 11-64 yrs (Adacel) 10/06/2007 Td 04/02/1998 Zoster 06/27/2017 Family History Medical History Relation Comments High Cholesterol Father Breast Cancer Maternal Aunt 1 age 67 Colon Cancer Maternal Aunt 2 age 68 Heart Disease Maternal Grandmother Grandfather -UT in his 50's Ovarian Cancer Maternal Grandmother [...] Done Comments Depression Assessment (PHQ-2) 1956 RSV 60+ Yrs (1 - 1-dose 60+ series) 2014 Zoster Vaccine (2 of 3) 08/22/2017 06/27/2017 Adult Tetanus Booster 10/06/2017 10/06/2007, 998 Mammogram Screening 04/20/2018 04/20/2017, 04/14/2016, 04/03/2015, Additional history exists Osteoporosis Screening 08/16/2018 08/16/2016 Yearly Review of HCD 09/12/2018 09/12/2017, 02/21/2017, 12/21/2016, Additional history exists Pneumococcal 65+ (2 of 2 - PCV) 2019 6 Colonoscopy 05/04/2020 05/04/2010 (Prev iously completed) Lipid Screening 09/12/2022 09/12/2017, 07/09, 05/13/2010 COVID-19 Vaccine ( - 2022-2 4 season) 2023 Influenza Vaccine (Season Ended) 2024 08/21/2017, 08/05/2016, 08/01/2015, Additional history exists Hepatitis C Screening Completed 08/05/2016 Procedures Procedure Name Priority Date/Time Associated Diagnosis Comments LIPID PROFILE CASCADE Routine 09/12/2017 2:19 PM CRIME LAB ANALYST Lipid screening HEP C ANTIBODY Routine 08/05/2016 8:57 AM CDT Special screening for other specified conditions(V82.89) MAMMO DIGITAL SCREENING BI Routine 03/16/2011 5:10 PM CDT Other screening mammogram from Last 3 Months or Most Recently Relevant to Health Maintenance Results * (ABNORMAL) LIPID PROFILE CASCADE (09/12/2017 2:19 PM CRIME LAB ANALYST) SPECIMEN TYPE Fasting 09/12/2017 10:14 PM CRIME LAB ANALYST [facility] CHOLESTEROL 255(H) <200 mg/dL 09/12/2017 10:14 PM CRIME LAB ANALYST [facility] Triglycerides Profile 83 <150 mg/dL 09/12/2017 10:14 PM CRIME LAB ANALYST [facility] LDL CHOL, CALC 151(H) <100 mg/dL 09/12/2017 10:14 PM [facility] HDL CHOLESTEROL 87 >40 mg/dL 7 10:14 PM [facility] CHOL/HDL RATIO 2.9 0.0 - 4.9 09/12/2017 10:14 PM [facility] Blood Venipuncture / Unknown 09/12/2017 2:19 PM CRIME LAB ANALYST 09/12/2017 2:19 PM CRIME LAB ANALYST Narrative [facility] - 09/12/2017 10:14 PM [facility] LDL CHOLESTEROL REFERENCE RANGES: (FOR PATIENTS W/O HEART DISEASE) <100 mg/dL = Optimal 100-129 mg/dL = Near/Above Optimal 130-159 mg/dL = Borderline High 160-189 mg/dL = High >/= 190 mg/dL = Very High Sandra Mccracken MD CHEMISTRY ORDERABLE [facility] [address] [place], [place] [address] * HEP C ANTIBODY (08/05/2016 8:57 AM CDT) Hepatitis C Antibody Non-Reacti ve Non-Reacti ve 08/05/2016 6:35 PM CDT [facility] Blood Venipuncture / Unknown 08/05/2016 8:57 AM CDT 08/05/2016 8:57 AM CDT Sandra Mccracken MD IMMUNOLOGY ORDERABLE [facility] [address] [place] [address] * MAMMO DIGITAL SCREENING BI (03/16/2011 5:10 PM CDT) Anatomical Region Laterality Modality Breast Bilateral Mammography 03/16/2011 5:12 PM CDT Impressions 03/16/2011 8:13 PM CDT #[id number] - MAMMO DIGITAL SCREENING BI # BILATERAL DIGITAL SCREENING MAMMOGRAM WITH CAD: 03/16/2011 COMPARISON: Comparison is made to exam dated: ??01/31/2009 mammogram - [facility]. ?? FINDINGS: There are scattered fibroglandular elements [...] Procedure Note Tamir Whelan MD - 03/17/2011 #[id number] - MAMMO DIGITAL SCREENING BI # BILATERAL DIGITAL SCREENING MAMMOGRAM WITH CAD: 03/16/2011 COMPARISON: Comparison is made to exam dated: 01/31/2009 mammogram - [facility]. FINDINGS: There are scattered fibroglandular elements [...] Advance Directives For more information, please contact: [phone] * Full Code (Latest Code Status on File) Date Activated Date Inactivated Comments 08/05/2016 8:44 AM Question Answer Comments How was code status determined? Patient Care Teams Fruit Farmworker Relationship Specialty Start Date End Date Anthony Terrell MD PCP - Account Services Manager Cardiology 01/18/12
--- OUTSIDE RECORDS SUMMARY | 2024-03-22 14:03 | XMS_ITS | Referral Summary ---
Author Name Unknown Organization [facility] Address [address] [place] [address] Care Team Providers Care Delivery Helper Name Role Phone Elsewhere, Pcp Primary Care Provider Unavailabl e Source Comments Patient records contain information from all sites at [facility]. For routine questions regarding patient records, call [phone] during business hours, M-F 8:00 AM - 5:00 PM Central Time. Record requests for emergency care only can be directed to [phone] at any time.[facility] Allergies Active Allergy Reactions Criticality Noted Date [...] Basic Metabolic Panel (09/07/2018 3:11 PM CDT) Potassium, S 4.6 3.6 - 5.2 mmol/L 09/07/2018 4:37 PM CDT [facility] Sodium, S 142 135 - 145 mmol/L 09/07/2018 4:37 PM CDT [facility] Chloride, S 104 98 - 107 mmol/L 09/07/2018 4:37 PM CDT [facility] Bicarbonate, S 25 22 - 29 mmol/L 09/07/2018 4:37 PM CDT [facility] Anion Gap 13 7 - 15 09/07/2018 4:37 PM CDT [facility] BUN (Blood Urea Nitrogen), S 14 6 - 21 mg/dL 09/07/2018 4:37 PM CDT [facility] Creatinine 0.85 0.59 - 1.04 mg/dL 09/07/2018 4:37 PM CDT [facility] eGFR-Non Black/ 73 >=60 mL/min/BSA 09/07/2018 4:37 PM CDT [facility] Comment: ----ADDITIONAL INFORMATION---- Estimated GFR calculated using the 2009 CKD_EPI creatinine equation. eGFR-Black/Afri can Barbadian 84 >=60 mL/min/BSA 09/07/2018 4:37 PM CDT [facility] Comment: ----ADDITIONAL INFORMATION---- Estimated GFR calculated using the 2009 CKD_EPI creatinine equation. Calcium, Total, S 9.5 8.8 - 10.2 mg/dL 09/07/2018 4:37 PM CDT [facility] Glucose, S 94 70 - 140 mg/dL 09/07/2018 4:37 PM CDT [facility] Blood (Blood, Venous) 09/07/2018 3:11 PM CDT 09/07/2018 3:15 PM CDT Oliver Schaeffer M.D. LAB BLOOD ADD-ON [facility] [address] [place] [address], [facility] from Last 3 Months or Most Recently Relevant to Health Maintenance Care Teams Delivery Helper Relationship Specialty Start Date End Date Elsewhere, Pcp PCP - General Family Medicine 09/07/18
--- OUTSIDE RECORDS SUMMARY | 2024-03-22 14:03 | XMS_ITS | Encounter Summary ---
Author Name Unknown Organization [facility] Address [address] [place] [address] Care Team Providers Care Vehicle Body Builder Name Role Phone Zara Yung MD Primary Care Provider Unavail able [facility] Unavailable Unavailable Anthony Terrell MD Unavailable Sandra Mccracken MD Primary Care Provider [phone] [facility] Unavailable Reason for Visit * Reason Onset Date Comments Cardiac Rhythm Problem 09/09/2015 Encounter Details Date Type Department Care Team (Late st Contact Info) Description 09/09/2015 Nurse Triage [facility] [address] [address] Zara Yung MD Social History Tobacco Use [...] her lawn. Denied any chest pain, SOB. Personnel Worker strongly suggested 3 times that pt be seen in ED right away. Unsure if pt will be seen as she stated she is feeling better today. Corrina Curran RN Protocol: HEART RATE AND HEART BEAT [id number] 1. DESCRIPTION: Please describe your heart rate [...] or weakness Disposition of Emergency Department suggested. ER CONSULTANT documented in this encounter Plan of Treatment Not on file documented as of this encounter Visit Diagnoses Not on filedocumented in this encounter Care Teams Vehicle Body Builder Relationship Specialty Start Date End Date Zara Yung MD PCP - General 03/03/10 03/10/16 [facility] PCP - Primary Care Clinic 03/03/10 Anthony Terrell MD PCP - Service Delivery Manager Cardiology 01/18/12 Sandra Mccracken MD PCP - General Family Medicine 03/11/16 07/06/[address] [address] PCP - Primary Care Clinic 09/02/1611/15 documented as of this encounter
--- OUTSIDE RECORDS SUMMARY | 2024-03-22 14:03 | XMS_ITS | Referral Summary ---
Author Name Unknown Organization [facility] Address [address] [place] [address] Care Team Providers Care Printed Circuit Designer Name Role Phone Anthony Terrell MD Unavailable [...] yrs (Adacel) 10/06/2007 Td 04/02/1998 Zoster 06/27/2017 Social History Tobacco Use Types Packs/Day [...] LIPID PROFILE CASCADE Routine 09/12/2017 2:19 PM DOCUMENT REVIEW SPECIALIST Lipid screening HEP C ANTIBODY Routine 08/05/2016 8:57 AM CDT Special screening for other specified conditions(V82.89) MAMMO DIGITAL SCREENING BI Routine 03/16/2011 5:10 PM CDT Other screening mammogram from Last 3 Months or Most Recently Relevant to Health Maintenance Results * (ABNORMAL) LIPID PROFILE CASCADE (09/12/2017 2:19 PM DOCUMENT REVIEW SPECIALIST) SPECIMEN TYPE Fasting 09/12/2017 10:[address] [facility] CHOLESTEROL 255(H) <200 mg/dL 09/12/2017 10:[address] [facility] Triglycerides Profile 83 <150 mg/dL 09/12/2017 10:[address] [facility] LDL CHOL, CALC 151(H) <100 mg/dL 09/12/2017 10:[address] [facility] HDL CHOLESTEROL 87 >40 mg/dL 7 10:[address] [facility] CHOL/HDL RATIO 2.9 0.0 - 4.9 09/12/2017 10:14 PM DOCUMENT REVIEW SPECIALIST [facility] Blood Venipuncture / Unknown 09/12/2017 2:19 PM DOCUMENT REVIEW SPECIALIST 09/12/2017 2:19 PM [facility] - 09/12/2017 10:14 PM [facility] LDL CHOLESTEROL REFERENCE RANGES: (FOR PATIENTS W/O HEART DISEASE) <100 mg/dL = Optimal 100-129 mg/dL = Near/Above Optimal 130-159 mg/dL = Borderline High 160-189 mg/dL = High >/= 190 mg/dL = Very High Sandra Mccracken MD CHEMISTRY ORDERABLE [facility] [address] [place] [address] * HEP C ANTIBODY (08/05/2016 8:57 AM CDT) Hepatitis C Antibody Non-Reacti ve Non-Reacti ve 08/05/2016 6:35 PM CDT [facility] Blood Venipuncture / Unknown 08/05/2016 8:57 AM CDT 08/05/2016 8:57 AM CDT Sandra Mccracken MD IMMUNOLOGY ORDERABLE [facility] [address] [address] * MAMMO DIGITAL SCREENING BI (03/16/2011 5:10 PM CDT) Anatomical Region Laterality Modality Breast Bilateral Mammography 03/16/2011 5:12 PM CDT Impressions 03/16/2011 8:13 PM CDT #[id number] - MAMMO DIGITAL SCREENING BI # BILATERAL DIGITAL SCREENING MAMMOGRAM WITH CAD: 03/16/2011 COMPARISON: Comparison is made to exam dated: ??01/31/2009 mammogram - [facility]. ?? FINDINGS: There are scattered fibroglandular [...] Procedure Note Tamir Whelan MD - 03/17/2011 #[id number] - MAMMO DIGITAL SCREENING BI # BILATERAL DIGITAL SCREENING MAMMOGRAM WITH CAD: 03/16/2011 COMPARISON: Comparison is made to exam dated: 01/31/2009 mammogram - [facility]. FINDINGS: There are scattered fibroglandular elements [...] Advance Directives For more information, please contact: [phone] * Full Code (Latest Code Status on File) Date Activated Date Inactivated Comments 08/05/2016 8:44 AM Question Answer Comments How was code status determined? Patient Care Teams Printed Circuit Designer Relationship Specialty Start Date End Date Anthony Terrell MD PCP - Exhauster Cardiology 01/18/12
== END 2024-03-22 14:00 | disposition home or self-care (01) ==
LOC: RAD 14:00
PROVIDERS: PCP Family Medicine; Visit Provider Family Medicine
DX: M81.0 Age-related osteoporosis without current pathological fracture (principal)
CPT/HCPCS: 77080

== ENCOUNTER 2024-06-01 14:46 | Outpatient (CLI) | payer MEDICARE, SELFPAY ==
--- OUTSIDE RECORDS SUMMARY | 2024-06-01 14:49 | XMS_ITS | Referral Summary ---
Author Organization [facility] Address [address] [place] [address] Care Team Providers Care Chemistry Research Assistant Name Role Phone No Ref-Primary, Physician Primary [...] Results * COLONOSCOPY (08/10/2005 7:30 AM CDT) [facility] COLONOSCOPY [facility] Endoscopy Department Patient Name: Shalini Victoria ? Gender: F ? Procedure Date: 08/10/2005 7:30 AM ? SSN: [id number] ?Date of : 1955 ? Age: 50 [...] and oxygen saturations were monitored ?continuously. The [id number] noscope was introduced ?through the anus and [...] to referring provider PRN. ? CPT Code(s): ?72545, Colonoscopy, flexible, proximal to splenic flexure; ?diagnostic, with or without collection of specimen(s) by ?brushing or washing, with or without colon decompression ?(separate procedure) ICD Code(s): ?789.04, Abdominal Pain, Left Lower Quadrant ?V76.51, Special Screening For Malignant Neoplasms, Colon The codes documented in this report are preliminary and upon cpc coder review may be revised to meet current [...] Recently Relevant to Health Maintenance Care Teams Chemistry Research Assistant Relationship Specialty Start Date End Date No Ref-Primary, Physician PCP - General 02/27/22
--- OUTSIDE RECORDS SUMMARY | 2024-06-01 14:49 | XMS_ITS | Clinical Summary ---
Author Organization [facility] Address [place], [place] [address] Care Team Providers Care 3D Technologist Name Role Phone Mary Ruiz MD Primary [...] Comments Blood Pressure 103/70 10/18/2022 9:36 AM EMERGENCY PHYSICIAN Difficult to hear. Pulse 68 10/18/2022 9:33 AM EMERGENCY PHYSICIAN Temperature 36.4 ??C (97.6 ??F) 09/03/2018 8 :41 AM CDT Respiratory Rate 16 09/03/2018 8:41 AM CDT Oxygen Saturation 99% 10/18/2022 9:3 3 AM EMERGENCY PHYSICIAN Inhaled Oxygen Concentration - - Weight 63.9 kg (140 lb 14.4 oz) 10/18/2022 9:33 AM EMERGENCY PHYSICIAN Height 165.1 cm (5' 5) 10/18/2022 9:33 AM EMERGENCY PHYSICIAN Body Mass Index 23.45 10/18/2022 9:33 AM EMERGENCY PHYSICIAN Plan of Treatment Health Maintenance Due Date [...] REFLEX MEASURED LDL Today 10/18/2022 10:31 AM EMERGENCY PHYSICIAN Mixed hyperlipidemia XR MAMMO BILAT SCREENING Routine 04/20/2017 9:23 AM CDT Visit for screening mammogram from Last 3 Months or Most Recently Relevant to Health Maintenance Results * (ABNORMAL) LIPID PANEL W REFLEX MEASURED LDL (10/18/2022 10:31 AM EMERGENCY PHYSICIAN) CHOLESTEROL,TOTAL 244(H) 100 - 199 mg/dL 10/18/2022 10:57 AM EMERGENCY PHYSICIAN [facility] TRIGLYCERIDES 78 <150 mg/dL 10/18/2022 10:57 AM EMERGENCY PHYSICIAN [facility] HDL CHOLESTEROL 75 >40 mg/dL 10:57 AM EMERGENCY PHYSICIAN [facility] NON-HDL CHOLESTEROL 169(H) <145 mg/dl 10/18/2022 10:57 AM EMERGENCY PHYSICIAN [facility] CHOL/HDL RATIO 3.25 <4.50 10/18/2022 10:57 AM [facility] LDL CHOLESTEROL 153(H) <=130 mg/dL 10/18/2022 10:57 AM [facility] VLDL CHOLESTEROL 16 <=30 mg/dL 10/18/20 22 10:57 AM EMERGENCY PHYSICIAN [facility] PROVIDER ORDERED STATUS RANDOM 10/18/2022 10:57 AM EMERGENCY PHYSICIAN [facility] Blood BLOOD SPECIMEN / Unknown Venipuncture / Unknown 10/18/2022 10:31 AM EMERGENCY PHYSICIAN 10/18/2022 10:32 AM EMERGENCY PHYSICIAN Gabriela Franklin MD CHEMISTRY [facility] [address] [place] [address] * XR MAMMO BILAT SCREENING (04/20/2017 9:23 AM CDT) Anatomical Region Laterality Modality BREASTS, Breast Left, Breast Right Bilateral Mammography Impressions 04/20/2017 11:42 AM CDT ??There is no radiographic evidence for malignancy. ??Recommend annual mammograms. A lay language report of this examination will be provided to the patient. MAMMOGRAM ASSESSMENT: ??ACR 1 Negative Narrative 04/20/2017 11:42 AM CDT XR MAMMO BILAT SCREENING [[id number]] CLINICAL HISTORY: ??This is an asymptomatic 62 y.o. patient. INDICATION FOR EXAM: Mammogram Screening. TECHNIQUE: CC & MLO views were obtained. ??This digital study was evaluated with the assistance of Computer-Aided Detection. COMPARISON FILM: Yes 04/14/16 [facility] 04/09/13 [facility] FINDINGS: ??Mammographically, the breast tissue has scattered fibroglandular densities. ??There are no dominant masses, suspicious micro calcifications or areas of architectural distortion. Sandra Mccracken MD MAMMO from Last 3 Months or Most Recently Relevant to Health Maintenance Advance Directives * Full Code (Latest Code Status on File) Date Activated Date Inactivated Comments 08/31/2018 12:56 PM 09/03/2018 4:30 PM Care Teams 3D Technologist Relationship Specialty Start Date End Date Mary Ruiz MD [address] [place] [address] PCP - General Family Practice 10/24/18
--- OUTSIDE RECORDS SUMMARY | 2024-06-01 14:49 | XMS_ITS | Clinical Summary ---
Author Organization [facility] Address [address] [place] [address] Care Team Providers Care Crew Clerk Name Role Phone No Ref-Primary, Physician Primary [...] (once per calendar year) 2023 INFLUENZA VACCINE (#1) 2024 2, 07/28/2021, 08/07/2020, Additional history exists DTAP/TDAP/TD IMMUNIZATION [...] Results * COLONOSCOPY (08/10/2005 7:30 AM CDT) COLONOSCOPY [facility] Endoscopy Department Patient Name: Shalini Victoria ? Gender: F ? Procedure Date: 08/10/2005 7:30 AM ? SSN: [id number] ?Date of : 1955 ? Age: 50 ? Admit Type: Outpatient ? Room: 6 ? Note Status: Finalized ?Attending MD: Gilbert Landaverde ? Procedure: ?Colonoscopy Indications: ?Abdominal distress/pain in the left lower quadrant, Avg risk ?screening for malignant neoplasm in the colon. Prior history ?of polyps (type unknown) and remote family history (aunt in ?her 70's). Providers: ?Gilbert Landaverde MD, Cheryl Contreras RN Referring MD: ?? Zara Yung MD [...] and oxygen saturations were monitored ?continuously. The [id number] noscope was introduced ?through the anus and [...] to referring provider PRN. ? CPT Code(s): ?69145, Colonoscopy, flexible, proximal to splenic flexure; ?diagnostic, with or without collection of specimen(s) by ?brushing or washing, with or without colon decompression ?(separate procedure) ICD Code(s): ?789.04, Abdominal Pain, Left Lower Quadrant ?V76.51, Special Screening For Malignant Neoplasms, Colon The codes documented in this report are preliminary and upon metal temperer review may be revised to meet current [...] Recently Relevant to Health Maintenance Care Teams Crew Clerk Relationship Specialty Start Date End Date No Ref-Primary, Physician PCP - General 02/27/22
--- OUTSIDE RECORDS SUMMARY | 2024-06-01 14:49 | XMS_ITS | Clinical Summary ---
Author Organization [facility] Address [address] [place] [address] Care Team Providers Care Transitions Manager Name Role Phone Mary Ruiz MD Primary Care Provider Source Comments You are receiving this document as you are listed as the primary care provider,follow-up provider, or the patient has been referred to you for consultation.This is in compliance with the Medicare and[facility] EHR Incentive Program,which states Providers who transition their patient to another setting of careor provider of care or refers their patient to another provider of care shouldprovide summary care record for each transition of care or referral. [employer] Allergies Active Allergy Reactions Criticality Noted Date [...] Multidose Vial 0 .25 (6-35 Mos) 07/23/2015 [id number] 11/26/2009 HepA Adult (19+ yrs) 05/13/2010,11/18/1998 Influenza (Flucelvax), Prese rv Free QIV 08/11/2018,08/22/2017 Influenza IIV3 (Trivalent) F luzone Highdose, 65+ Yrs (16778) 08/07/2019,08/01/2015 Influenza IIV4 (Quadrivalent ) 0.5mL (25686) 08/07/2020,08/05/2016,08/01/2015, 014,07/24/2014,08/20/2013,08/07/2012,,11/26/2009,08/07/2007,09/14/2004 Influenza IIV4 (Quadrivalent ) Fluzone, 65+ Yrs 08/09/2022,07/28/2021 Influenza Vaccine (3+years) ([facility]) 09/19/2007 Moderna Bivalent 12+ 08/30/2022 [...] 06/30/2023 9:34 AM CDT Plan of Treatment Upcoming Encounters Date Type Department Care Team (Late st Contact Info) Description 07/13/2024 2:30 PM CDT Appointment [facility] [address] [facility] [address] Gabriela Franklin MD [address] [place], [place] [id number] Health Maintenance Due Date Last Done Comments Hep C Screening (Preventive Services) 1955 Medicare Welcome Visit 1955 Mammogram 04/09/2014 04/09/2013 Zoster/Shingles (2 of 3) 08/22/2017 06/27/2017 Dexa 2019 Colonoscopy 05/04/2020 05/04/2010 COVID-19 Vaccine ( season) 2023 08/30/2022, 09/14/2021, 01/23/2021, Additional history exists Influenza (#1) 2024 08/09/2022, 07/09, 08/07/2020, Additional history exists Cholesterol 06/30/2028 06/30/2023 [...] Direct LDL(If Needed) (06/30/2023 10:54 AM CDT) [facility] Cholesterol 189 0 - 199 mg/dL 06/30/2023 4:24 PM [facility] Triglyceride 66 <=149 mg/dL 06/30/2023 4:24 PM [facility] HDL Cholesterol 79 >=40 mg/dL 3 4:24 PM [facility] LDL, Calculated 97 <130 mg/dL 3 4:24 PM [facility] Non HDL Chol, Calculated 110 <=159 mg/dL 06/30/2023 4:24 PM [facility] Cholesterol/HDL Ratio 2.4 06/30/2023 4:24 PM [facility] Hours Fasting 0.1 8 - 12 Hours 06/30/2023 4:24 PM [facility] Blood Venipuncture / Unknown 06/30/2023 10:54 AM CDT 06/30/2023 10:54 AM CDT Gabriela Franklin MD LAB_1 [facility] [address] [place] [address] [phone] from Last 3 Months or Most Recently Relevant to Health Maintenance Care Teams Transitions Manager Relationship Specialty Start Date End Date Mary Ruiz MD [address] [place] [address] PCP - General Family Practice 07/15/23
--- OUTSIDE RECORDS SUMMARY | 2024-06-01 14:50 | XMS_ITS | Referral Summary ---
Author Organization [facility] Address [address] [place] [address] Care Team Providers Care Chief Of Hospital Medicine Name Role Phone Anthony Terrell MD Unavailable [...] LIPID PROFILE CASCADE Routine 09/12/2017 2:19 PM FLOODPLAIN MANAGER Lipid screening HEP C ANTIBODY Routine 08/05/2016 8:57 AM CDT Special screening for other specified conditions(V82.89) MAMMO DIGITAL SCREENING BI Routine 03/16/2011 5:10 PM CDT Other screening mammogram from Last 3 Months or Most Recently Relevant to Health Maintenance Results * (ABNORMAL) LIPID PROFILE CASCADE (09/12/2017 2:19 PM FLOODPLAIN MANAGER) SPECIMEN TYPE Fasting 09/12/2017 10:14 PM [facility] CHOLESTEROL 255(H) <200 mg/dL 09/12/2017 10:14 PM [facility] Triglycerides Profile 83 <150 mg/dL 09/12/2017 10:14 PM [facility] LDL CHOL, CALC 151(H) <100 mg/dL 09/12/2017 10:14 PM [facility] HDL CHOLESTEROL 87 >40 mg/dL 7 10:14 PM [facility] CHOL/HDL RATIO 2.9 0.0 - 4.9 09/12/2017 10:14 PM FLOODPLAIN MANAGER [facility] Blood Venipuncture / Unknown 09/12/2017 2:19 PM FLOODPLAIN MANAGER 09/12/2017 2:19 PM [facility] - 09/12/2017 10:14 PM [facility] LDL CHOLESTEROL REFERENCE RANGES: (FOR PATIENTS W/O HEART DISEASE) <100 mg/dL = Optimal 100-129 mg/dL = Near/Above Optimal 130-159 mg/dL = Borderline High 160-189 mg/dL = High >/= 190 mg/dL = Very High Sandra Mccracken MD CHEMISTRY ORDERABLE [facility] [address] [place] [address] * HEP C ANTIBODY (08/05/2016 8:57 AM CDT) Hepatitis C Antibody Non-Reacti ve Non-Reacti ve 08/05/2016 6:35 PM CDT [facility] Blood Venipuncture / Unknown 08/05/2016 8:57 AM CDT 08/05/2016 8:57 AM CDT Sandra Mccracken MD IMMUNOLOGY ORDERABLE [facility] [address] [address] * MAMMO DIGITAL SCREENING BI (03/16/2011 5:10 PM CDT) Anatomical Region Laterality Modality Breast Bilateral Mammography 03/16/2011 5:12 PM CDT Impressions 03/16/2011 8:13 PM CDT #[id number] - MAMMO DIGITAL SCREENING BI # BILATERAL DIGITAL SCREENING MAMMOGRAM WITH CAD: 03/16/2011 COMPARISON: Comparison is made to exam dated: ??01/31/2009 mammogram - [facility]. ?? FINDINGS: There are scattered fibroglandular [...] Procedure Note Tamir Whelan MD - 03/17/2011 #[id number] - MAMMO DIGITAL SCREENING BI # BILATERAL DIGITAL SCREENING MAMMOGRAM WITH CAD: 03/16/2011 COMPARISON: Comparison is made to exam dated: 01/31/2009 mammogram - [facility]. FINDINGS: There are scattered fibroglandular elements in [...] Advance Directives For more information, please contact: [phone] * Full Code (Latest Code Status on File) Date Activated Date Inactivated Comments 08/05/2016 8:44 AM Question Answer Comments How was code status determined? Patient Care Teams Chief Of Hospital Medicine Relationship Specialty Start Date End Date Anthony Terrell MD PCP - Railroad Car Cleaner Cardiology 01/18/12
--- OUTSIDE RECORDS SUMMARY | 2024-06-01 14:50 | XMS_ITS | Encounter Summary ---
Author Organization [facility] Address [address] [place] [address] Care Team Providers Care University Relations Vice President Name Role Phone Zara Yung MD Primary Care Provider Unavail able [facility] Unavailable Unavailable Anthony Terrell MD Unavailable Sandra Mccracken MD Primary Care Provider [phone] [facility] Unavailable Reason for Visit * Reason Onset Date Comments Cardiac Rhythm Problem 09/09/2015 Encounter Details Date Type Department Care Team (Late st Contact Info) Description 09/09/2015 Nurse Triage [facility] Medicine [address] [address] Zara Yung MD Social History Tobacco Use [...] her lawn. Denied any chest pain, SOB. Performance Makeup Artist strongly suggested 3 times that pt be seen in ED right away. Unsure if pt will be seen as she stated she is feeling better today. Corrina Curran RN Protocol: HEART RATE AND HEART BEAT [id number] 1. DESCRIPTION: Please describe your heart rate [...] or weakness Disposition of Emergency Department suggested. ION WORKER documented in this encounter Plan of Treatment Not on file documented as of this encounter Visit Diagnoses Not on filedocumented in this encounter Care Teams University Relations Vice President Relationship Specialty Start Date End Date Zara Yung MD PCP - General 03/03/10 03/10/16 [facility] PCP - Primary Care Clinic 03/03/10 Anthony Terrell MD PCP - Correctional Corporal Cardiology 01/18/12 Sandra Mccracken MD PCP - General Family Medicine 03/11/16 07/06/[address] [address] PCP - Primary Care Clinic 09/02/1611/15 documented as of this encounter
--- OUTSIDE RECORDS SUMMARY | 2024-06-01 14:50 | XMS_ITS ---
Author Organization [facility] Address [address] [place] [address] Care Team Providers Care Curing Finisher Name Role Phone Unavailable Unavailable Unavailable Surgery Details Not on file Complications Check Surgery Details section. Procedure Estimated Blood Loss Check Surgery Details section. Procedure Findings Check Surgery Details section. Procedure Specimens Taken Check Surgery Details section.
--- OUTSIDE RECORDS SUMMARY | 2024-06-01 14:50 | XMS_ITS | Clinical Summary ---
Author Organization [facility] Address [address] [place] [address] Care Team Providers Care Journeyman Molder Name Role Phone Anthony Terrell MD Unavailable [...] age 67 Heart Disease Maternal Grandmother Grandfather -[place] in his 50's Ovarian Cancer Maternal Grandmother [...] 2022-2 4 season) 2023 Influenza Vaccine (#1) 2024 7, 08/05/2016, 08/01/2015, Additional history exists Hepatitis C Screening Completed 08/05/2016 Procedures Procedure Name Priority Date/Time Associated Diagnosis Comments LIPID PROFILE CASCADE Routine 09/12/2017 2:19 PM INTEGRATION ANALYST Lipid screening HEP C ANTIBODY Routine 08/05/2016 8:57 AM CDT Special screening for other specified conditions(V82.89) MAMMO DIGITAL SCREENING BI Routine 03/16/2011 5:10 PM CDT Other screening mammogram from Last 3 Months or Most Recently Relevant to Health Maintenance Results * (ABNORMAL) LIPID PROFILE CASCADE (09/12/2017 2:19 PM INTEGRATION ANALYST) SPECIMEN TYPE Fasting 09/12/2017 10:14 PM INTEGRATION ANALYST [facility] CHOLESTEROL 255(H) <200 mg/dL 09/12/2017 10:14 PM INTEGRATION ANALYST [facility] Triglycerides Profile 83 <150 mg/dL 09/12/2017 10:14 PM INTEGRATION ANALYST [facility] LDL CHOL, CALC 151(H) <100 mg/dL 09/12/2017 10:14 PM [facility] HDL CHOLESTEROL 87 >40 mg/dL 7 10:14 PM [facility] CHOL/HDL RATIO 2.9 0.0 - 4.9 09/12/2017 10:14 PM [facility] Blood Venipuncture / Unknown 09/12/2017 2:19 PM INTEGRATION ANALYST 09/12/2017 2:19 PM INTEGRATION ANALYST Narrative [facility] - 09/12/2017 10:14 PM [facility] LDL CHOLESTEROL REFERENCE RANGES: (FOR PATIENTS W/O HEART DISEASE) <100 mg/dL = Optimal 100-129 mg/dL = Near/Above Optimal 130-159 mg/dL = Borderline High 160-189 mg/dL = High >/= 190 mg/dL = Very High Sandra Mccracken MD CHEMISTRY ORDERABLE [facility] [address] [place], [place] [address] * HEP C ANTIBODY (08/05/2016 8:57 AM CDT) Hepatitis C Antibody Non-Reacti ve Non-Reacti ve 08/05/2016 6:35 PM CDT [facility] Blood Venipuncture / Unknown 08/05/2016 8:57 AM CDT 08/05/2016 8:57 AM CDT Sandra Mccracken MD IMMUNOLOGY ORDERABLE [facility] [address] [place] [address] * MAMMO DIGITAL SCREENING BI (03/16/2011 5:10 PM CDT) Anatomical Region Laterality Modality Breast Bilateral Mammography 03/16/2011 5:12 PM CDT Impressions 03/16/2011 8:13 PM CDT #[id number] - MAMMO DIGITAL SCREENING BI # BILATERAL DIGITAL SCREENING MAMMOGRAM WITH CAD: 03/16/2011 COMPARISON: Comparison is made to exam dated: ??01/31/2009 mammogram - [facility]. ?? FINDINGS: There are scattered fibroglandular [...] Procedure Note Tamir Whelan MD - 03/17/2011 #[id number] - MAMMO DIGITAL SCREENING BI # BILATERAL DIGITAL SCREENING MAMMOGRAM WITH CAD: 03/16/2011 COMPARISON: Comparison is made to exam dated: 01/31/2009 mammogram - [facility]. FINDINGS: There are scattered fibroglandular elements [...] Advance Directives For more information, please contact: [phone] * Full Code (Latest Code Status on File) Date Activated Date Inactivated Comments 08/05/2016 8:44 AM Question Answer Comments How was code status determined? Patient Care Teams Journeyman Molder Relationship Specialty Start Date End Date Anthony Terrell MD PCP - Wind Up Operator Cardiology 01/18/12
--- OUTSIDE RECORDS SUMMARY | 2024-06-01 14:50 | XMS_ITS | Referral Summary ---
Author Organization [facility] Address [address] [place] [address] Care Team Providers Care Computer Science Intern Name Role Phone Elsewhere, Pcp Primary Care Provider Unavailabl e Source Comments Patient records contain information from all sites at [facility]. For routine questions regarding patient records, call [phone] during business hours, M-F 8:00 AM - 5:00 PM Central Time. Record requests for emergency care only can be directed to [phone] at any time.[facility] Allergies Active Allergy Reactions Criticality Noted Date [...] - 5.2 mmol/L 09/07/2018 4:37 PM CDT [facility] Sodium, S 142 135 - 145 mmol/L 09/07/2018 4:37 PM CDT [facility] Chloride, S 104 98 - 107 mmol/L 09/07/2018 4:37 PM CDT [facility] Bicarbonate, S 25 22 - 29 mmol/L 09/07/2018 4:37 PM CDT [facility] Anion Gap 13 7 - 15 09/07/2018 4:37 PM CDT [facility] BUN (Blood Urea Nitrogen), S 14 6 - 21 mg/dL 09/07/2018 4:37 PM CDT [facility] Creatinine 0.85 0.59 - 1.04 mg/dL 09/07/2018 4:37 PM CDT [facility] eGFR-Non Black/ 73 >=60 mL/min/BSA 09/07/2018 4:37 PM CDT [facility] Comment: ----ADDITIONAL INFORMATION---- Estimated GFR calculated using the 2009 CKD_EPI creatinine equation. eGFR-Black/Afri can Nigerian 84 >=60 mL/min/BSA 09/07/2018 4:37 PM CDT [facility] Comment: ----ADDITIONAL INFORMATION---- Estimated GFR calculated using the 2009 CKD_EPI creatinine equation. Calcium, Total, S 9.5 8.8 - 10.2 mg/dL 09/07/2018 4:37 PM CDT [facility] Glucose, S 94 70 - 140 mg/dL 09/07/2018 4:37 PM CDT [facility] Blood (Blood, Venous) 09/07/2018 3:11 PM CDT 09/07/2018 3:15 PM CDT Oliver Schaeffer M.D. LAB BLOOD ADD-ON [facility] [address] [place] [address], [facility] from Last 3 Months or Most Recently Relevant to Health Maintenance Care Teams Computer Science Intern Relationship Specialty Start Date End Date Elsewhere, Pcp PCP - General Family Medicine 09/07/18
--- OUTSIDE RECORDS SUMMARY | 2024-06-01 14:50 | XMS_ITS | Clinical Summary ---
Author Organization [facility] Address [address] [place] [address] Care Team Providers Care Mortgage Or Loan Underwriter Name Role Phone Elsewhere, Pcp Primary Care Provider Unavailabl e Source Comments Patient records contain information from all sites at [facility]. For routine questions regarding patient records, call [phone] during business hours, M-F 8:00 AM - 5:00 PM Central Time. Record requests for emergency care only can be directed to [phone] at any time.[facility] Allergies Active Allergy Reactions Criticality Noted Date [...] PHQ-2) 11/07/2023 Fall Risk Screen (Annual) 11/07/2023 Influenza Vaccine (#1) 2024 3, 08/09/2022, 07/28/2021, Additional history exists DTaP,Tdap,and Td Vaccines (4 - Td or Tdap) 10/13/2028 10/13/2018, 10/13/2018, 10/06/2007, Additional history exists Cervical Cancer Screening Discontinued 11/22/2019 Pneumococcal vaccine (65+ years) Completed 12/29/2021, 11/22/2019, 11/09/2005 Procedures Procedure Name Priority Date/Time Associated Diagnosis Comments BASIC METABOLIC PANEL, S/P Routine 09/07/2018 3:11 PM CDT Other Chest Pain from Last 3 Months or Most Recently Relevant to Health Maintenance Results * Basic Metabolic Panel (09/07/2018 3:11 PM CDT) Potassium, S 4.6 3.6 - 5.2 mmol/L 09/07/2018 4:37 PM CDT [facility] Sodium, S 142 135 - 145 mmol/L 09/07/2018 4:37 PM CDT [facility] Chloride, S 104 98 - 107 mmol/L 09/07/2018 4:37 PM CDT [facility] Bicarbonate, S 25 22 - 29 mmol/L 09/07/2018 4:37 PM CDT [facility] Anion Gap 13 7 - 15 09/07/2018 4:37 PM CDT [facility] BUN (Blood Urea Nitrogen), S 14 6 - 21 mg/dL 09/07/2018 4:37 PM CDT [facility] Creatinine 0.85 0.59 - 1.04 mg/dL 09/07/2018 4:37 PM CDT [facility] eGFR-Non Black/ 73 >=60 mL/min/BSA 09/07/2018 4:[address] [facility] Comment: ----ADDITIONAL INFORMATION---- Estimated GFR calculated using the 2009 CKD_EPI creatinine equation. eGFR-Black/Afri can Greek 84 >=60 mL/min/BSA 09/07/2018 4:[address] [facility] Comment: ----ADDITIONAL INFORMATION---- Estimated GFR calculated using the 2009 CKD_EPI creatinine equation. Calcium, Total, S 9.5 8.8 - 10.2 mg/dL 09/07/2018 4:37 PM CDT [facility] Glucose, S 94 70 - 140 mg/dL 09/07/2018 4:37 PM CDT [facility] Blood (Blood, Venous) 09/07/2018 3:11 PM CDT 09/07/2018 3:15 PM CDT Oliver Schaeffer M.D. LAB BLOOD ADD-ON [facility] [address] [place] [address], [facility] from Last 3 Months or Most Recently Relevant to Health Maintenance Care Teams Mortgage Or Loan Underwriter Relationship Specialty Start Date End Date Elsewhere, Pcp PCP - General Family Medicine 09/07/18
--- NOTE | 2024-06-01 15:00 | CRLHL7_ITS ---
For Patients: As a result of the Century Cures Act, medical imaging exams and procedure reports are released immediately into your electronic medical record. You may view this report before your referring provider. If you have questions, please contact your health care provider. CLINICAL HISTORY: postmenopausal bleeding TECHNIQUE: 2D warren scale and color Doppler images were acquired of the pelvis using a transvaginal approach. FINDINGS: On transvaginal imaging, the myometrium has a normal uniform echotexture. The endometrial lining appears thickened with cystic areas and measures 11 mm in thickness. The left ovary measures 1.6 x 1.0 x 1.6 cm in size and the right ovary measures 1.4 x 0.9 x 0.9 cm. The ovaries demonstrate normal arterial and venous blood flow on color Doppler analysis. There are no suspicious fluid collections within the cul-de-sac. IMPRESSION: Endometrium is thickened with small cystic areas and measures up to 11 millimeters. Dictated by Bryan Pringle MD @ 06/01/2024 3:40:46 PM (Electronically Signed)
== END 2024-06-01 14:47 | disposition home or self-care (01) ==
LOC: US 14:46
PROVIDERS: PCP Family Medicine; Visit Provider Registered Nurse
DX: N95.0 Postmenopausal bleeding (principal); R93.89 Abnormal findings on diagnostic imaging of other specified body structures
CPT/HCPCS: 76830

== ENCOUNTER 2024-07-03 06:09 | Day surgery (SDC) | payer MEDICARE, SELFPAY ==
--- OUTSIDE RECORDS SUMMARY | 2024-07-03 06:13 | XMS_ITS | Clinical Summary ---
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 Arrythmia Cardiac evaluation 09/2015 underway Actinic keratosis, hx of 02/07/2015 Overview (02/07/2015): Left forearm 01/19 Insomnia 07/26/2014 Overview (07/26/2014): Chronic med ambien use low dose no change for several yrs Also on elavil nightly for fibro Benign thyroid cyst 03/14/2014 Overview (03/14/2014): Aspiration 2014 Needs yrly GERD (gastroesophageal reflux disease) 3 Breath shortness 01/18/2012 Overview (02/02/2012): Reassuring eval heart CT Pulm See Dr Weiss notes 01/2012 Fibromyalgia syndrome 06/28/2011 Unspecified vitamin D deficiency 05/13/2010 Overview (10/27/2012): 2009 back to normal Mitral valve disorders 04/14/2010 Overview (06/29/2011): Minimal insufficiency Persistent disorder of initiating or maintaining sleep 04/14/2010 Irritable bowel syndrome 04/14/2010 Postmenopausal atrophic vaginitis 04/14/2010 Unspecified disorder of the teeth and supporting structures 03/03/2010 Overview (06/28/2011): TMJ arthritis Pain in thoracic spine 07/22/2009 [...] & Older 08/20/2013 Hep A Adult 05/13/2010,11/18/1998 Influenza, high dose, amadeo valent, PF 08/01/2015 Influenza, recombinant, quad rivalent, PF 08/05/2016 Influenza, split virus, quad rivalent, preservative 08/07/2014,08/06/2011,08/07/2007,2003 Pneumococcal PPSV23 11/09/2005 TDaP 11-64 yrs (Adacel) 10/06/2007 Td 04/02/1998 Zoster 06/27/2017 Family History Medical History Relation Comments High Cholesterol Father Breast Cancer Maternal Aunt 1 age 67 Colon Cancer Maternal Aunt 2 age 68 Heart Disease Maternal Grandmother Grandfather -[place] in his 50's Ovarian Cancer Maternal Grandmother [...] LIPID PROFILE CASCADE Routine 09/12/2017 2:19 PM CAT OPERATOR Lipid screening HEP C ANTIBODY Routine 08/05/2016 8:57 AM CDT Special screening for other specified conditions(V82.89) MAMMO DIGITAL SCREENING BI Routine 03/16/2011 5:10 PM CDT Other screening mammogram from Last 3 Months or Most Recently Relevant to Health Maintenance Results * (ABNORMAL) LIPID PROFILE CASCADE (09/12/2017 2:19 PM CAT OPERATOR) SPECIMEN TYPE Fasting 09/12/2017 10:14 PM CAT OPERATOR [facility] CHOLESTEROL 255(H) <200 mg/dL 09/12/2017 10:14 PM CAT OPERATOR [facility] Triglycerides Profile 83 <150 mg/dL 09/12/2017 10:14 PM CAT OPERATOR [facility] LDL CHOL, CALC 151(H) <100 mg/dL 09/12/2017 10:14 PM [facility] HDL CHOLESTEROL 87 >40 mg/dL 7 10:14 PM [facility] CHOL/HDL RATIO 2.9 0.0 - 4.9 09/12/2017 10:14 PM CAT OPERATOR [facility] Blood Venipuncture / Unknown 09/12/2017 2:19 PM CAT OPERATOR 09/12/2017 2:19 PM CAT OPERATOR Narrative [facility] - 09/12/2017 10:14 PM [facility] LDL CHOLESTEROL REFERENCE RANGES: (FOR PATIENTS W/O HEART DISEASE) <100 mg/dL = Optimal 100-129 mg/dL = Near/Above Optimal 130-159 mg/dL = Borderline High 160-189 mg/dL = High >/= 190 mg/dL = Very High Sandra Mccracken MD CHEMISTRY ORDERABLE Performing Organization Address City/[facility]/ZIP Co de Phone Number [facility] [address] [place] [address] * HEP C ANTIBODY (08/05/2016 8:57 AM CDT) Hepatitis C Antibody Non-Reacti ve Non-Reacti ve 08/05/2016 6:35 PM CDT [facility] Blood Venipuncture / Unknown 08/05/2016 8:57 AM CDT 08/05/2016 8:57 AM CDT Sandra Mccracken MD IMMUNOLOGY ORDERABLE [facility] [address] [place] [address] * MAMMO DIGITAL SCREENING BI (03/16/2011 5:10 PM CDT) Anatomical Region Laterality Modality Breast Bilateral Mammography 03/16/2011 5:12 PM CDT Impressions 03/16/2011 8:13 PM CDT #[id number] - MAMMO DIGITAL SCREENING BI # BILATERAL DIGITAL SCREENING MAMMOGRAM WITH CAD: 03/16/2011 COMPARISON: Comparison is made to exam dated: ??01/31/2009 mammogram - [facility]. ?? FINDINGS: There are scattered fibroglandular [...] by mail. ?? Tamir Whelan M.D. ? dio/genorad:03/16/2011 20:13:23 ?? letter sent: BI-RADS 1/2 Normal Letter ?? Mammogram BI-RADS: 1 Negative Narrative Procedure Note Tamir Whelan MD - 03/17/2011 #[id number] - MAMMO DIGITAL SCREENING BI # BILATERAL DIGITAL SCREENING MAMMOGRAM WITH CAD: 03/16/2011 COMPARISON: Comparison is made to exam dated: 01/31/2009 mammogram - [facility]. FINDINGS: There are scattered fibroglandular [...] Advance Directives For more information, please contact: [phone] * Full Code (Latest Code Status on File) Date Activated Date Inactivated Comments 08/05/2016 8:44 AM Question Answer Comments How was code status determined? Patient Care Teams Junction Maker Relationship Specialty Start Date End Date Anthony Terrell MD PCP - Tie Up Worker Cardiology 01/18/12
--- OUTSIDE RECORDS SUMMARY | 2024-07-03 06:13 | XMS_ITS | Clinical Summary ---
Author Organization [facility] Address [place], [place] [address] Care Team Providers Care Nursing Associate Name Role Phone Mary Ruiz MD Primary [...] was transported upstairs fully awake and intact. Encounters Date Type Department Care Team Description 06/04/2024 Lab Requisition [facility] [phone] Rosa Wang NP from Last 3 Months Immunizations Name Administration Dates Next Due Hepatitis [...] Comments Blood Pressure 103/70 10/18/2022 9:36 AM MANDOLIN REPAIRER Difficult to hear. Pulse 68 10/18/2022 9:33 AM MANDOLIN REPAIRER Temperature 36.4 ??C (97.6 ??F) 09/03/2018 8 :41 AM CDT Respiratory Rate 16 09/03/2018 8:41 AM CDT Oxygen Saturation 99% 10/18/2022 9:3 3 AM MANDOLIN REPAIRER Inhaled Oxygen Concentration - - Weight 63.9 kg (140 lb 14.4 oz) 10/18/2022 9:33 AM MANDOLIN REPAIRER Height 165.1 cm (5' 5) 10/18/2022 9:33 AM MANDOLIN REPAIRER Body Mass Index 23.45 10/18/2022 9:33 AM MANDOLIN REPAIRER Plan of Treatment Health Maintenance Due Date [...] 09/21/2018, Additional history exists COVID-19 vaccine series (2022- season) 2023 08/30/2022, 09/14/2021, 01/23/2021, Additional history exists BMI (ht and wt on same day) for age 18+ 10/18/2023 10/18/2022, 04/27/2022, 01/17/2019, Additional history exists Influenza for age 65+ 07/08/2024 08/22/2017 , 08/05/2016, 08/01/2015, Additional history exists Lipids for age 45-75 10/18/2027 10/18/2022, 01/14/2020, 09/21/2018, Additional history exists Procedures Procedure Name Priority Date/Time Associated Diagnosis Comments LAB TRACKING EVENT Routine 06/01/2024 11 :00 AM CDT PATH TISSUE EXAM Routine 06/01/2024 11:0 0 AM CDT LIPID PANEL W REFLEX MEASURED LDL Today 10/18/2022 10:31 AM MANDOLIN REPAIRER Mixed hyperlipidemia XR MAMMO BILAT SCREENING Routine 04/20/2017 9:23 AM CDT Visit for screening mammogram from Last 3 Months or Most Recently Relevant to Health Maintenance Results * LAB TRACKING EVENT (06/01/2024 11:00 AM CDT) Other (Other) Client Collect / Unknown 06/01/2024 11:00 AM CDT 06/04/2024 3:14 PM CDT Rosa Wang NP LAB BILL ONLY [facility] [address] [place] [address], * PATH TISSUE EXAM (06/01/2024 11:00 AM CDT) Case Report Pathology Report ?Case: [id number] ? Authorizing Provider: ??Rosa Wang NP ?? Collected: ? 06/01/2024 1100 ? Ordering Location: ? [facility] ?Received: ?06/04/2024 1623 ? Pathologist: ? Sonya Kingston MD ? Specimen: ?Endometrial Biopsy ? 06/06/2024 3:51 PM CDT [facility] Final Diagnosis A) ENDOMETRIUM, BIOPSY: 1. Atrophic endometrium 2. Negative for hyperplasia, atypia, and malignancy in this sample 06/06/2024 3:51 PM T [facility] Comment If the clinical impression does not correlate with the histologic finding of endometrial atrophy, further endometrial tissue sampling is recommended as clinically indicated. 06/06/2024 3:51 PM CDT [facility] Clinical Information Postmenopausal bleeding. 06/06/2024 3:51 PM CDT [facility] Gross Description A) Received in formalin, labeled with the patient's name and date of , is a 0.6 x 0.9 x 0.1 cm aggregate of pink-uriostegui mucosa admixed with clotted blood and mucous. The specimen is entirely submitted in 1 cassette. [facility] 06/04/2024 06/06/2024 3:51 PM CDT [facility] Microscopic Description The final diagnosis is based on microscopic examination of appropriate sections of all specimens. 06/06/2024 3:51 PM CDT [facility] Additional Information Interpreted at [facility] Laboratory - [address] [facility] [address], [place] [address] 06/06/2024 3:51 PM CDT [facility] Other (Endometrial Biopsy) 06/01/2024 11:00 AM CDT 06/04/2024 4:23 PM CDT Rosa Wang NP PATHOLOGY/CYTOLOG Y [facility] [address] [place] [address], * (ABNORMAL) LIPID PANEL W REFLEX MEASURED LDL (10/18/2022 10:31 AM MANDOLIN REPAIRER) CHOLESTEROL,TOTAL 244(H) 100 - 199 mg/dL 10/18/2022 10:57 AM MANDOLIN REPAIRER [facility] TRIGLYCERIDES 78 <150 mg/dL 10/18/2022 10:57 AM MANDOLIN REPAIRER [facility] HDL CHOLESTEROL 75 >40 mg/dL 10:57 AM MANDOLIN REPAIRER [facility] NON-HDL CHOLESTEROL 169(H) <145 mg/dl 10/18/2022 10:57 AM MANDOLIN REPAIRER [facility] CHOL/HDL RATIO 3.25 <4.50 10/18/2022 10:57 AM MANDOLIN REPAIRER [facility] LDL CHOLESTEROL 153(H) <=130 mg/dL 10/18/2022 10:57 AM [facility] VLDL CHOLESTEROL 16 <=30 mg/dL 10/18/20 22 10:57 AM [facility] PROVIDER ORDERED STATUS RANDOM 10/18/2022 10:57 AM MANDOLIN REPAIRER [facility] Blood BLOOD SPECIMEN / Unknown Venipuncture / Unknown 10/18/2022 10:31 AM MANDOLIN REPAIRER 10/18/2022 10:32 AM MANDOLIN REPAIRER Gabriela Franklin MD CHEMISTRY [facility] [address] [place] [address] * XR MAMMO BILAT SCREENING (04/20/2017 9:23 AM CDT) Anatomical Region Laterality Modality BREASTS, Breast Left, Breast Right Bilateral Mammography Impressions 04/20/2017 11:42 AM CDT ??There is no radiographic evidence for malignancy. ??Recommend annual mammograms. A lay language report of this examination will be provided to the patient. MAMMOGRAM ASSESSMENT: ??ACR 1 Negative Narrative 04/20/2017 11:42 AM CDT XR MAMMO BILAT SCREENING [[id number]] CLINICAL HISTORY: ??This is an asymptomatic 62 y.o. patient. INDICATION FOR EXAM: Mammogram Screening. TECHNIQUE: CC & MLO views were obtained. ??This digital study was evaluated with the assistance of Computer-Aided Detection. COMPARISON FILM: Yes 04/14/16 [facility] 04/09/13 [facility] FINDINGS: ??Mammographically, the breast tissue has scattered fibroglandular densities. ??There are no dominant masses, suspicious micro calcifications or areas of architectural distortion. Sandra Mccracken MD MAMMO from Last 3 Months or Most Recently Relevant to Health Maintenance Advance Directives * Full Code (Latest Code Status on File) Date Activated Date Inactivated Comments 08/31/2018 12:56 PM 09/03/2018 4:30 PM Care Teams Nursing Associate Relationship Specialty Start Date End Date Mary Ruiz MD [address] [place] [address] PCP - General Family Practice 10/24/18
--- OUTSIDE RECORDS SUMMARY | 2024-07-03 06:13 | XMS_ITS | Referral Summary ---
Author Organization [place] Address [address] [place] [address] Care Team Providers Care Mail Handler Equipment Operator Name Role Phone No Ref-Primary, Physician Primary [...] Results * COLONOSCOPY (08/10/2005 7:30 AM CDT) [facility] COLONOSCOPY [facility] Endoscopy Department Patient Name: Shalini Victoria ? Gender: F ? Procedure Date: 08/10/2005 7:30 AM ? SSN: [id number] ?Date of : 1955 ? Age: 50 [...] and oxygen saturations were monitored ?continuously. The [id number] noscope was introduced ?through the anus and [...] to referring provider PRN. ? CPT Code(s): ?31644, Colonoscopy, flexible, proximal to splenic flexure; ?diagnostic, with or without collection of specimen(s) by ?brushing or washing, with or without colon decompression ?(separate procedure) ICD Code(s): ?789.04, Abdominal Pain, Left Lower Quadrant ?V76.51, Special Screening For Malignant Neoplasms, Colon The codes documented in this report are preliminary and upon tire repairman review may be revised to meet current [...] Recently Relevant to Health Maintenance Care Teams Mail Handler Equipment Operator Relationship Specialty Start Date End Date No Ref-Primary, Physician PCP - General 02/27/22
--- OUTSIDE RECORDS SUMMARY | 2024-07-03 06:13 | XMS_ITS | Clinical Summary ---
Author Organization [employer] Address [address] [place] [address] Care Team Providers Care Data Recovery Planner Name Role Phone Mary Ruiz MD Primary Care Provider Source Comments You are receiving this document as you are listed as the primary care provider,follow-up provider, or the patient has been referred to you for consultation.This is in compliance with the Medicare and[facility] EHR Incentive Program,which states Providers who transition their patient to another setting of careor provider of care or refers their patient to another provider of care shouldprovide summary care record for each transition of care or referral. in[employer]Dgallery Allergies Active Allergy Reactions Criticality Noted Date [...] Multidose Vial 0 .25 (6-35 Mos) 07/23/2015 [id number]-[id number] 11/26/2009 HepA Adult (19+ yrs) 05/13/2010,11/18/1998 Influenza (Flucelvax), Prese rv Free QIV 08/11/2018,08/22/2017 Influenza IIV3 (Trivalent) F luzone Highdose, 65+ Yrs (28023) 08/07/2019,08/01/2015 Influenza IIV4 (Quadrivalent ) 0.5mL (33449) 08/07/2020,08/05/2016,08/01/2015, 014,07/24/2014,08/20/2013,08/07/2012,,11/26/2009,08/07/2007,09/14/2004 Influenza IIV4 (Quadrivalent ) Fluzone, 65+ Yrs 08/09/2022,07/28/2021 Influenza Vaccine (3+years) ([facility]) 09/19/2007 Moderna Bivalent 12+ [...] 2:30 PM CDT Appointment [facility] [address] [facility]. [place] [id number] Gabriela Franklin MD [address] [place], [place] [id number] Health Maintenance Due Date Last Done Comments Hep C Screening (Preventive Services) 1955 MTM Covered 1955 Medicare Welcome Visit 1955 Mammogram 04/09/2014 [...] Direct LDL(If Needed) (06/30/2023 10:54 AM CDT) [facility] Cholesterol 189 0 - 199 mg/dL 06/30/2023 4:24 PM [facility] Triglyceride 66 <=149 mg/dL 06/30/2023 4:[address] [facility] HDL Cholesterol 79 >=40 mg/dL 3 4:24 PM [facility] LDL, Calculated 97 <130 mg/dL 3 4:[address] [facility] Non HDL Chol, Calculated 110 <=159 mg/dL 06/30/2023 4:[address] [facility] Cholesterol/HDL Ratio 2.4 06/30/2023 4:[address] [facility] Hours Fasting 0.1 8 - 12 Hours 06/30/2023 4:[address] [facility] Blood Venipuncture / Unknown 06/30/2023 10:54 AM CDT 06/30/2023 10:54 AM CDT Gabriela Franklin MD LAB_[address] [facility] [address] [place] [address] [phone] from Last 3 Months or Most Recently Relevant to Health Maintenance Care Teams Data Recovery Planner Relationship Specialty Start Date End Date Mary Ruiz MD [address] [place] [address] PCP - General Family Practice 07/15/23
--- OUTSIDE RECORDS SUMMARY | 2024-07-03 06:13 | XMS_ITS | Encounter Summary ---
Author Organization [facility] Address [address] [place] [address] Care Team Providers Care Restaurant And Bar Manager Name Role Phone Zara Yung MD Primary Care Provider Unavail able [facility] Unavailable Unavailable Anthony Terrell MD Unavailable Sandra Mccracken MD Primary Care Provider [phone] [facility] Unavailable Reason for Visit * Reason Onset Date Comments Cardiac Rhythm Problem 09/09/2015 Encounter Details Date Type Department Care Team (Late st Contact Info) Description 09/09/2015 Nurse Triage [facility] Medicine [address] [address] Zara Yung MD Social History Tobacco Use [...] her lawn. Denied any chest pain, SOB. Chief Of Service strongly suggested 3 times that pt be seen in ED right away. Unsure if pt will be seen as she stated she is feeling better today. Corrina Curran RN Protocol: HEART RATE AND HEART BEAT [id number] 1. DESCRIPTION: Please describe your heart rate [...] or weakness Disposition of Emergency Department suggested. OSIVE OPERATOR GRENADE documented in this encounter Plan of Treatment Not on file documented as of this encounter Visit Diagnoses Not on filedocumented in this encounter Care Teams Restaurant And Bar Manager Relationship Specialty Start Date End Date Zara Yung MD PCP - General 03/03/10 03/10/16 [facility] PCP - Primary Care Clinic 03/03/10 Anthony Terrell MD PCP - Income Tax Administrator Cardiology 01/18/12 Sandra Mccracken MD PCP - General Family Medicine 03/11/16 07/06/[address] [address] PCP - Primary Care Clinic 09/02/1611/15 documented as of this encounter
--- OUTSIDE RECORDS SUMMARY | 2024-07-03 06:13 | XMS_ITS | Referral Summary ---
Author Organization [facility] Address [address] [place] [address] Care Team Providers Care Pet Training Instructor Name Role Phone Anthony Terrell MD Unavailable [...] LIPID PROFILE CASCADE Routine 09/12/2017 2:19 PM VENT[facility] CAPITALIST Lipid screening HEP C ANTIBODY Routine 08/05/2016 8:57 AM CDT Special screening for other specified conditions(V82.89) MAMMO DIGITAL SCREENING BI Routine 03/16/2011 5:10 PM CDT Other screening mammogram from Last 3 Months or Most Recently Relevant to Health Maintenance Results * (ABNORMAL) LIPID PROFILE CASCADE (09/12/2017 2:19 PM [facility]ENT[facility] CAPITALIST) SPECIMEN TYPE Fasting 09/12/2017 10:14 PM [facility] CHOLESTEROL 255(H) <200 mg/dL 09/12/2017 10:14 PM [facility] Triglycerides Profile 83 <150 mg/dL 09/12/2017 10:14 PM [facility] LDL CHOL, CALC 151(H) <100 mg/dL 09/12/2017 10:14 PM [facility] HDL CHOLESTEROL 87 >40 mg/dL 7 10:14 PM [facility] CHOL/HDL RATIO 2.9 0.0 - 4.9 09/12/2017 10:14 PM [facility] Blood Venipuncture / Unknown 09/12/2017 2:19 PM [facility] CAPITALIST 09/12/2017 2:[address] [facility] - 09/12/2017 10:14 PM [facility] LDL CHOLESTEROL REFERENCE RANGES: (FOR PATIENTS W/O HEART DISEASE) <100 mg/dL = Optimal 100-129 mg/dL = Near/Above Optimal 130-159 mg/dL = Borderline High 160-189 mg/dL = High >/= 190 mg/dL = Very High Sandra Mccracken MD CHEMISTRY [facility] [address] [address] * HEP C ANTIBODY (08/05/2016 8:57 AM CDT) Hepatitis C Antibody Non-Reacti ve Non-Reacti ve 08/05/2016 6:35 PM CDT [facility] Blood Venipuncture / Unknown 08/05/2016 8:57 AM CDT 08/05/2016 8:57 AM CDT Sandra Mccracken MD IMMUNOLOGY [facility] [address] [address] * MAMMO DIGITAL SCREENING BI (03/16/2011 5:10 PM CDT) Anatomical Region Laterality Modality Breast Bilateral Mammography 03/16/2011 5:12 PM CDT Impressions 03/16/2011 8:13 PM CDT #[id number] - MAMMO DIGITAL SCREENING BI # BILATERAL DIGITAL SCREENING MAMMOGRAM WITH CAD: 03/16/2011 COMPARISON: Comparison is made to exam dated: ??01/31/2009 mammogram - [facility]. ?? FINDINGS: There are scattered fibroglandular [...] Procedure Note Tamir Whelan MD - 03/17/2011 #[id number] - MAMMO DIGITAL SCREENING BI # BILATERAL DIGITAL SCREENING MAMMOGRAM WITH CAD: 03/16/2011 COMPARISON: Comparison is made to exam dated: 01/31/2009 mammogram - [facility]. FINDINGS: There are scattered fibroglandular elements [...] Advance Directives For more information, please contact: [phone] * Full Code (Latest Code Status on File) Date Activated Date Inactivated Comments 08/05/2016 8:44 AM Question Answer Comments How was code status determined? Patient Care Teams Pet Training Instructor Relationship Specialty Start Date End Date Anthony Terrell MD PCP - Specialties Operator Cardiology 01/18/12
--- OUTSIDE RECORDS SUMMARY | 2024-07-03 06:13 | XMS_ITS | Clinical Summary ---
Author Organization [facility] Address [address] [place] [address] Care Team Providers Care Invoice Machine Operator Name Role Phone No Ref-Primary, Physician [...] * COLONOSCOPY (08/10/2005 7:30 AM CDT) COLONOSCOPY [facility] Endoscopy Department Patient Name: Shalini Victoria ? Gender: F ? Procedure Date: 08/10/2005 7:30 AM ? SSN: [id number] ?Date of : 1955 ? Age: 50 [...] and oxygen saturations were monitored ?continuously. The [id number] noscope was introduced ?through the anus and [...] to referring provider PRN. ? CPT Code(s): ?61672, Colonoscopy, flexible, proximal to splenic flexure; ?diagnostic, with or without collection of specimen(s) by ?brushing or washing, with or without colon decompression ?(separate procedure) ICD Code(s): ?789.04, Abdominal Pain, Left Lower Quadrant ?V76.51, Special Screening For Malignant Neoplasms, Colon The codes documented in this report are preliminary and upon supervisor area review may be revised to meet current [...] Recently Relevant to Health Maintenance Care Teams Invoice Machine Operator Relationship Specialty Start Date End Date No Ref-Primary, Physician PCP - General 02/27/22
[2024-07-03 06:20] VITALS: BP 121/82; PULSE 64; RESP 18; TEMP 36.7; O2SAT 97; BMI 23.0
[2024-07-03] MEDS: LACTATED RINGERS 1000 ML 1,000 ML 100 ML IV (06:40)
[2024-07-03] MEDS: SODIUM CHLORIDE 0.9 % (FLUSH) 10 ML SYRINGE IVF (06:40)
--- NOTE | 2024-07-03 07:17 | W.PM.H&PU ---
History & Physical Update History & Physical Update H&P Reviewed and patient assessed: No changes noted
--- NOTE | 2024-07-03 07:32 | PM.PROC ---
Procedure Note Time Seen by Provider: 08:06 Date Seen: 07/03/24 Date of procedure: 07/03/24 Will [facility] bill your pro fee for this procedure?: Yes Procedure: Preoperative diagnosis: 69 year-old with postmenopausal bleeding Postoperative diagnosis: Same Procedure: Hysteroscopy, Dilation and Curettage using the Truclear incisor Anesthesia: Conscious sedation, paracervical block. Surgeon: Farida Wright MD Chrome Tanner: None Estimated blood loss: 3 mL Specimen: Endometrial curettings to pathology. Findings: Exam under anesthesia: Uterus: Retroverted position, less than 8 week sized, mobile, with no masses or nodularity palpable. Uterus sounded to 8 cm. No adnexal masses or nodularity palpable. On hysteroscopy: 2 polypoid masses within the endometrium otherwise normal. Procedure: Shalini was taken to the operating operating room more conscious sedation was found to be adequate. The patient was placed on in the dorsal lithotomy position and an exam under anesthesia was performed with findings stated above. She was then prepped and draped in a normal sterile manner. A bivalve speculum was placed in the vagina. The cervix appears nulliparous. Otherwise no abnormalities. The paracervical block was placed using 0.5% Marcaine, 10 mL was injected at the 4 and 8 o'clock positions on the cervix. The Anterior lip of the cervix was grasped with a single-toothed tenaculum. The cervix dilated to Hegar 6. The uterus sounded to 8 cm. The Truclear hysteroscope was advanced into the uterus. A diagnostic hysteroscopy was performed with normal saline as the insufflation medium. Findings are stated above. The Truclear incisor was then advanced through the camera. The curettage was performed with the incisor over an approximately 10 minutes. The incisor was then removed. The endometrial cavity appeared normal. Nothing was needed for hemostasis. The hysteroscope, single-tooth tenaculum and speculum were removed from the vaginal canal. The patient tolerated the procedure well. Sponge, lap and instrument counts were correct x2 at the end of the procedure. The patient was taken to the recovery area in stable condition.
[2024-07-03] MEDS: BUPIVACAINE 0.5% 30 ML INJECTION (07:48)
[2024-07-03 08:09] VITALS: BP 97/65; PULSE 54; RESP 16; TEMP 36.3; O2SAT 94
[2024-07-03 08:15] VITALS: BP 96/63; PULSE 70; RESP 14; O2SAT 99
--- NOTE | 2024-07-03 08:15 | W.ANESCHARGE ---
Anesthesia Charges Start Date/Time Anesthesia Start Date: 07/03/24 Anesthesia Start Time: 07:28 Stop Date/Time Anesthesia Stop Date: 07/03/24 Anesthesia Stop Time: 08:14
[2024-07-03 08:30] VITALS: BP 106/68; PULSE 48; RESP 16; O2SAT 95
[2024-07-03 08:45] VITALS: BP 118/74; PULSE 48; RESP 16; TEMP 36.7; O2SAT 96
[2024-07-03 09:00] VITALS: BP 112/81; PULSE 46; RESP 16; O2SAT 96
== END 2024-07-03 09:19 | disposition home or self-care (01) ==
PROVIDERS: PCP Family Medicine; Visit Provider Obstetrics & Gynecology
PROC: 0UDB8ZZ Extraction of Endometrium, Via Natural or Artificial Opening Endoscopic (ICD-10-PCS; CPT 58558; principal; 2024-07-03 07:30)
DX: N95.0 Postmenopausal bleeding (principal); N84.0 Polyp of corpus uteri
CPT/HCPCS: 58558; 00952; 88305; C1782; J0665; J1100; J1885; J2250; J2405; J2704; J3010; J7120

== ENCOUNTER 2025-01-28 15:29 | Outpatient (CLI) | payer MEDICARE, SELFPAY ==
--- NOTE | 2025-01-28 15:20 | CRLHL7_ITS ---
For Patients: As a result of the Century Cures Act, medical imaging exams and procedure reports are released immediately into your electronic medical record. You may view this report before your referring provider. If you have questions, please contact your health care provider. BILATERAL SCREENING MAMMOGRAM WITH COMPUTER-AIDED DETECTION AND TOMOSYNTHESIS TECHNIQUE: CC and MLO views were obtained. These mammographic images have been obtained using full-field digital technique. These mammographic images were interpreted with the benefit of computer-aided detection. Breast tomosynthesis was used in this interpretation. COMPARISON FILM: 12/28/23, 12/27/22, 12/22/21. FINDINGS: There are scattered areas of fibroglandular density. IMPRESSION: There is no radiographic evidence for malignancy. ASSESSMENT: BI-RADS Category 2: Benign RECOMMENDATION: Routine screening mammogram in 1 year. A lay language report of this examination will be provided to the patient. BRYAN LEVINE M.D. Diagnostic Radiologist [email or web address] BART/rhina Transcribed: 02/04/2025, 5:[address]/Dictated by: Bryan Levine MD @ 02/04/2025 12:08:00 PM (Electronically Signed)
== END 2025-01-28 15:30 | disposition home or self-care (01) ==
LOC: MAMMO 15:30
PROVIDERS: PCP Family Medicine; Visit Provider Family Medicine
DX: Z12.31 Encounter for screening mammogram for malignant neoplasm of breast (principal)
CPT/HCPCS: 77063; 77067

== ENCOUNTER 2025-02-12 14:47 | Emergency (ER) | payer MEDICARE, SELFPAY ==
[2025-02-12] VITALS (11 sets, daily range): BP systolic 115; BP diastolic 81; PULSE 65–82; RESP 9–28; TEMP 36.8; O2SAT 93–100; BMI 21.5
--- NOTE | 2025-02-12 15:07 | ED_ITS ---
HPI - General Adult General Stated complaint: heart palpations Time Seen by Provider: 02/12/25 15:07 History of Present Illness HPI narrative: CC: Palpitaitons pt. with intermittent palpations for last 3 days. denies chest pain, shortness of breath, fevers, n/v. has had this in the past. 69-year-old woman presenting to the emergency department with concern ofd Related Data Home Medications ?Medication ?Instructions ?Recorded ?Confirmed Saccharomyces boulardii 250 mg 5,000 mmu cells PO QDAY 01/18/23 11/14/24 capsule (Daily Probiotic (S. boulardii)) aspirin 81 mg tablet,delayed 81 mg PO DAILY 01/18/23 11/14/24 release multivitamin 1 tab PO QAM 01/18/23 11/14/24 zinc sulfate 50 mg zinc (220 mg) mg PO DAILY 01/18/23 11/14/24 capsule amitriptyline 10 mg tablet 20 mg PO QDAY 06/27/24 11/14/24 Previous Rx's ?Medication ?Instructions ?Recorded metoprolol succinate 25 mg 12.5 mg (1/2 x 25 mg) PO BID #180 02/07/24 tablet,extended release 24 hr tabs rosuvastatin 5 mg tablet 5 mg PO QHS #90 tabs 02/07/24 zolpidem 5 mg tablet 2.5 mg (1/2 x 5 mg) PO .qhs PRN 02/07/24 insomnia #90 tabs cholecalciferol (vitamin D3) 25 25 mcg PO QDAY #90 caps 02/08/24 mcg (1,000 unit) capsule Allergies Allergy/AdvReac Type Severity Reaction Status Date / Time erythromycin base Allergy Unknown Verified 02/12/25 15:07 contrast media AdvReac Intermediate Uncoded 11/14/24 09:35 [facility] Medical History Chronic constipation ?K59.09 - Other constipation (ICD-10) Vitamin D deficiency ?E55.9 - Vitamin D deficiency, unspecified (ICD-10) Varicose veins of both lower extremities ?I83.93 - Asymptomatic varicose veins of bilateral lower extremities (ICD-10) Transient global amnesia ?G45.4 - Transient global amnesia (ICD-10) ST elevation myocardial infarction (STEMI) (08/2018) ?I21.3 - ST elevation (STEMI) myocardial infarction of unspecified site (ICD- 10) Osteoporosis (2016) ?M81.0 - Age-related osteoporosis without current pathological fracture (ICD- 10) Hyperlipidemia ?E78.5 - Hyperlipidemia, unspecified (ICD-10) Gastroesophageal reflux disease ?K21.9 - Gastro-esophageal reflux disease without esophagitis (ICD-10) Fibromyalgia (1987) ?M79.7 - Fibromyalgia (ICD-10) Coronary artery disease ?I25.10 - Atherosclerotic heart disease of [place] coronary artery without angina pectoris (ICD-10) Chronic rectal pain ?K62.89 - Other specified diseases of anus and rectum (ICD-10) ?G89.29 - Other chronic pain (ICD-10) History of ectopic ?Z87.59 - Personal history of other complications of , childbirth and the puerperium (ICD-10) Surgical History History of third molar tooth extraction (1975) ?K08.409 - Partial loss of teeth, unspecified cause, unspecified class (ICD- 10) History of mandibular surgery (1989) ?Z98.890 - Other specified postprocedural states (ICD-10) History of colonoscopy (12/15/20) ?Z98.890 - Other specified postprocedural states (ICD-10) History of appendectomy (1989) ?Z90.49 - Acquired absence of other specified parts of digestive tract (ICD- 10) Family History (Updated 06/27/24 @ 06:44 by Mary Ruiz MD) Aunt Breast cancer, Onset Age: 70 Colon cancer, Onset Age: 60 Atrial fibrillation Uncle FH: pancreatic cancer Maternal Grandmother Gynecologic cancer Sister Cancer of appendix Mother Fibromyalgia Daughter Fibromyalgia Maternal Grandfather Myocardial infarction Other Osteoporosis Ovarian cancer Stroke Social History Narrative: , 2 children, retired PT Non-smoker Social drinker 1/week Exercises 3 to 4 times per cardio, strength What is your current living situation?: I presently have a place to live Problems where you live: no known problems In the past 12 months, utilities in danger of being shut off: no In past 12 months, lack of transportation kept you from medical appts, meetings, work, or getting things needed for daily living: no In the past 12 mos, have been you worried that your food would run out before you had money to buy more?: never true In the past 12 mos, the food you bought just didn't last and you didn't have money to buy more?: never true Smoking Status: Never smoker Do you use any of these nicotine containing products: None How often do you have a drink containing alcohol: never How often do you have six or more drinks on one occasion: Never AUDIT-C Alcohol total score: 0 Non-prescribed substance use: denies use Caffeine: Yes How often does anyone, including family, friends and others, physically hurt you : never How often does anyone, including family, friends and others, insult or talk down to you: rarely How often does anyone, including family, friends and others, threaten you with harm: never How often does anyone, including family, friends and others, scream or curse at you: rarely Are you using contraception or practicing any form of control: No Health Related Social Needs: Other personal risk factors, not elsewhere classified (Z91.89) Exam Const: Vital Signs, click to edit/add: Vital Signs - 24 hr 02/12/25 15:05 Temperature 98.3 F Pulse Rate [Right Pulse Oximeter] 75 Respiratory Rate 18 Blood Pressure [Ri ght Upper Arm] 115/81 Pulse Oximetry 97 Oxygen Delivery Me thod Room Air Course Vital Signs Vital signs: Initial Vital Signs Temperature 98.3 F 02/12/25 15:05 Temperature Source Temporal Artery Scan 02/12/25 15:05 Pulse Rate 75 02/12/25 15:05 Respiratory Rate 18 02/12/25 15:05 Blood Pressure 115/81 02/12/25 15:05 Blood Pressure Mean 92 02/12/25 15:05 Blood Pressure Position Sitting 02/12/25 15:05 Pulse Oximetry 97 02/12/25 15:05 Oxygen Delivery Method Room Air 02/12/25 15:05 Vital Signs Temperature 98.3 F 02/12/25 15:05 Pulse Rate 75 02/12/25 15:05 Respiratory Rate 18 02/12/25 15:05 Blood Pressure 115/81 02/12/25 15:05 Pulse Oximetry 97 02/12/25 15:05 Oxygen Delivery Method Room Air 02/12/25 15:05 Temperature 98.3 F 02/12/25 15:05 Pulse Rate 75 02/12/25 15:05 Respiratory Rate 18 02/12/25 15:05 Blood Pressure 115/81 02/12/25 15:05 Pulse Oximetry 97 02/12/25 15:05 Oxygen Delivery Method Room Air 02/12/25 15:05 Discharge Plan Discharge Prescriptions: No Action amitriptyline 10 mg tablet 20 mg PO QDAY zinc sulfate 50 mg zinc (220 mg) capsule PO DAILY multivitamin Tablet 1 tab PO QAM aspirin 81 mg tablet,delayed release (DR/EC) 81 mg PO DAILY polyethylene glycol 3350 17 gram/dose powder PO DAILY Saccharomyces boulardii [Daily Probiotic (S. boulardii)] 250 mg capsule 5,000 mmu cells PO QDAY metoprolol succinate 25 mg tablet extended release 24 hr 12.5 mg PO BID Qty: 180 3RF rosuvastatin 5 mg tablet 5 mg PO QHS Qty: 90 3RF zolpidem 5 mg tablet 2.5 mg PO .qhs PRN (Reason: insomnia) Qty: 90 1RF Rx Instructions: Take half a tablet every night as needed for insomnia cholecalciferol (vitamin D3) 25 mcg (1,000 unit) capsule 25 mcg PO QDAY Qty: 90 1RF Follow Up/Referrals: Mary Ruiz MD [Primary Care Provider] -
--- NOTE | 2025-02-12 15:15 | ED.GENADULT ---
HPI - General Adult General Chief complaint: Arrhythmia/Palpitations Stated complaint: heart palpations Time Seen by Provider: 02/12/25 15:07 History of Present Illness HPI narrative: CC: Palpitaitons pt. with intermittent palpations for last 3 days. denies chest pain, shortness of breath, fevers, n/v. has had this in the past. 69-year-old woman presenting to the emergency department with concern of chest palpitations. She has experienced symptoms like this somewhat in the past with unremarkable findings on Holter monitoring. This has been more intense though lately. Exercises regularly without difficulty. She is feeling a little more lightheaded though today and weakness in her legs in particular seems more pronounced. She does have history of fibromyalgia she says she often tends to blame things on fibro but this seems unusual. Does have a history of SCAD following a particularly stressful response of son or son-in-law and so does have some concerns of potential heart attack.. Does not think this is heartburn. Just keeps feeling some fluttering and will discomfort in the suprasternal notch as she gestures. No chest pain. No shortness of breath. Related Data Home Medications ?Medication ?Instructions ?Recorded ?Confirmed Saccharomyces boulardii 250 mg 5,000 mmu cells PO QDAY 01/18/23 02/12/25 capsule (Daily Probiotic (S. boulardii)) aspirin 81 mg tablet,delayed 81 mg PO DAILY 01/18/23 02/12/25 release multivitamin 1 tab PO QAM 01/18/23 02/12/25 zinc sulfate 50 mg zinc (220 mg) 50 mg PO DAILY 01/18/23 02/12/25 capsule amitriptyline 10 mg tablet 20 mg PO QDAY 06/27/24 02/12/25 Previous Rx's ?Medication ?Instructions ?Recorded metoprolol succinate 25 mg 12.5 mg (1/2 x 25 mg) PO BID #180 02/07/24 tablet,extended release 24 hr tabs rosuvastatin 5 mg tablet 5 mg PO QHS #90 tabs 02/07/24 cholecalciferol (vitamin D3) 25 25 mcg PO QDAY #90 caps 02/08/24 mcg (1,000 unit) capsule zolpidem 5 mg tablet 2.5 mg (1/2 x 5 mg) PO .qhs PRN 02/13/25 insomnia #30 tabs Allergies Allergy/AdvReac Type Severity Reaction Status Date / Time erythromycin base Allergy Unknown Verified 02/12/25 15:07 contrast media AdvReac Intermediate Uncoded 11/14/24 09:35 Review of Systems Status of ROS: Reports: 6 or more systems reviewed and unremarkable except as noted in History and below [facility] Medical History Chronic constipation ?K59.09 - Other constipation (ICD-10) Vitamin D deficiency ?E55.9 - Vitamin D deficiency, unspecified (ICD-10) Varicose veins of both lower extremities ?I83.93 - Asymptomatic varicose veins of bilateral lower extremities (ICD-10) Transient global amnesia ?G45.4 - Transient global amnesia (ICD-10) ST elevation myocardial infarction (STEMI) (08/2018) ?I21.3 - ST elevation (STEMI) myocardial infarction of unspecified site (ICD-10) Osteoporosis (2015) ?M81.0 - Age-related osteoporosis without current pathological fracture (ICD-10) Hyperlipidemia ?E78.5 - Hyperlipidemia, unspecified (ICD-10) Gastroesophageal reflux disease ?K21.9 - Gastro-esophageal reflux disease without esophagitis (ICD-10) Fibromyalgia (1987) ?M79.7 - Fibromyalgia (ICD-10) Coronary artery disease ?I25.10 - Atherosclerotic heart disease of [place] coronary artery without angina pectoris (ICD-10) Chronic rectal pain ?K62.89 - Other specified diseases of anus and rectum (ICD-10) ?G89.29 - Other chronic pain (ICD-10) History of ectopic ?Z87.59 - Personal history of other complications of , childbirth and the puerperium (ICD-10) Surgical History History of third molar tooth extraction (1975) ?K08.409 - Partial loss of teeth, unspecified cause, unspecified class (ICD-10) History of mandibular surgery (1989) ?Z98.890 - Other specified postprocedural states (ICD-10) History of colonoscopy (12/15/20) ?Z98.890 - Other specified postprocedural states (ICD-10) History of appendectomy (1989) ?Z90.49 - Acquired absence of other specified parts of digestive tract (ICD-10) Family History Aunt Breast cancer, Onset Age: 70 Colon cancer, Onset Age: 60 Atrial fibrillation Uncle FH: pancreatic cancer Maternal Grandmother Gynecologic cancer Sister Cancer of appendix Mother Fibromyalgia Daughter Fibromyalgia Maternal Grandfather Myocardial infarction Other Osteoporosis Ovarian cancer Stroke Social History Narrative: , 2 children, retired PT Non-smoker Social drinker 1/week Exercises 3 to 4 times per cardio, strength What is your current living situation?: I presently have a place to live Problems where you live: no known problems In the past 12 months, utilities in danger of being shut off: no In past 12 months, lack of transportation kept you from medical appts, meetings, work, or getting things needed for daily living: no In the past 12 mos, have been you worried that your food would run out before you had money to buy more?: never true In the past 12 mos, the food you bought just didn't last and you didn't have money to buy more?: never true Smoking Status: Never smoker Do you use any of these nicotine containing products: None How often do you have a drink containing alcohol: never How often do you have six or more drinks on one occasion: Never AUDIT-C Alcohol total score: 0 Non-prescribed substance use: denies use Caffeine: Yes How often does anyone, including family, friends and others, physically hurt you: never How often does anyone, including family, friends and others, insult or talk down to you: rarely How often does anyone, including family, friends and others, threaten you with harm: never How often does anyone, including family, friends and others, scream or curse at you: rarely Are you using contraception or practicing any form of control: No Health Related Social Needs: Other personal risk factors, not elsewhere classified (Z91.89) Exam Narrative: Exam Narrative: Pleasant. Calm. NAD. Lungs are clear. Heart with an occasional ectopic beat. Otherwise seems to be fairly regular. No murmur noted. No JVD. Extremities are well perfused without lower extremity edema. Abdomen is soft and nontender. Cranial nerves 2-12 intact Const: Vital Signs, click to edit/add: Vital Signs - 24 hr 02/12/25 15:05 02/12/25 15:26 02/12/25 15:30 Temperature 98.3 F Pulse Rate 65 66 Pulse Rate [Right Pulse Oximeter] 75 Respiratory Rate 18 16 16 Blood Pressure [Ri ght Upper Arm] 115/81 Pulse Oximetry 97 96 98 Oxygen Delivery Me thod Room Air 02/12/25 15:45 02/12/25 16:00 02/12/25 16:15 Temperature Pulse Rate 66 69 69 Pulse Rate [Right Pulse Oximeter] Respiratory Rate 19 21 Blood Pressure [Ri ght Upper Arm] Pulse Oximetry 98 97 97 Oxygen Delivery Me thod 02/12/25 16:30 02/12/25 16:45 02/12/25 17:00 Temperature Pulse Rate 82 66 65 Pulse Rate [Right Pulse Oximeter] Respiratory Rate 28 H 20 20 Blood Pressure [Ri ght Upper Arm] Pulse Oximetry 93 100 99 Oxygen Delivery Me thod 02/12/25 17:15 02/12/25 17:30 Temperature Pulse Rate 66 66 Pulse Rate [Right Pulse Oximeter] Respiratory Rate 20 9 L Blood Pressure [Ri ght Upper Arm] Pulse Oximetry 98 98 Oxygen Delivery Me thod Documenting provider has reviewed patient's vital signs: yes Course Vital Signs Vital signs: Initial Vital Signs Temperature 98.3 F 02/12/25 15:05 Temperature Source Temporal Artery Scan 02/12/25 15:05 Pulse Rate 75 02/12/25 15:05 Respiratory Rate 18 02/12/25 15:05 Blood Pressure 115/81 02/12/25 15:05 Blood Pressure Mean 92 02/12/25 15:05 Blood Pressure Position Sitting 02/12/25 15:05 Pulse Oximetry 97 02/12/25 15:05 Oxygen Delivery Method Room Air 02/12/25 15:05 Vital Signs Temperature 98.3 F 02/12/25 15:05 Pulse Rate 75 02/12/25 15:05 Respiratory Rate 18 02/12/25 15:05 Blood Pressure 115/81 02/12/25 15:05 Pulse Oximetry 97 02/12/25 15:05 Oxygen Delivery Method Room Air 02/12/25 15:05 Temperature 98.3 F 02/12/25 15:05 Pulse Rate 66 02/12/25 17:30 Respiratory Rate 9 L 02/12/25 17:30 Blood Pressure 115/81 02/12/25 15:05 Pulse Oximetry 98 02/12/25 17:30 Oxygen Delivery Method Room Air 02/12/25 15:05 Medications Administered Medications: Discontinued Medications Generic Name Dose Route Start Last Admin Trade Name [place] PRN Reason Stop Dose Admin Sodium Chloride 1,000 mls @ 1,200 mls/hr 02/12/25 16:11 02/12/25 17:37 0.9 % Sodium Chloride 1000 Ml IV 02/12/25 17:00 Infused .Q50M ONE Infusion Medical Decision Making MDM Narrative Medical decision making narrative: This really does seem to be consistent with PACs or similar. Will monitor on surveillance system monitor and check EKG. Check chemistries if might be contributing to arrhythmia. Does not seem to be ischemic cardiovascular event but will check labs in this regard as well. TSH. Already takes rate control in the form of metoprolol. She is near bradycardic on monitor. Apparently was originally prescribed 25 mg of metoprolol per dose but was intolerant of this and so only takes half a tab/12.5 mg now. EKG is reassuring as below. During time of observation on monitor was observed to have PACs/sinus arrhythmia. Labs have been reassuring Offered IV hydration and this did seem to settle down intensity/frequency. Noted improvement in symptoms. See patient discharge plan for further discussion It appears that you might be experiencing some premature atrial contractions or some other benign arrhythmia. I would continue to focus on hydration. If these are becoming more intense, frequent, contributing to lightheadedness or worsening weakness, would be re-evaluated. The metoprolol that you already take should be helpful generally. You might consider conversation with your process maintenance technician or primary care provider. You can continue usual levels of activity. Medical Records Medical records reviewed: Yes I reviewed the patient's medical records Lab Data Lab results reviewed: Yes I reviewed the patient's lab results Labs: Lab Results 02/12/25 Range/Units 15:38 WBC 5.11 (4.50-11.00) K/uL RBC 4.80 (4.00-5.20) m/uL Hgb 14.4 (12.0-16.0) gm/dL Hct 43.7 (33.0-51.0) % MCV 91 (80-100) fL MCH 30 (26-34) pg MCHC 33 (32-36) gm/dL RDW Coeff of [place] 11.8 (11.5-15.5) % Plt Count 205 (140-440) K/uL Neut % (Auto) 56.2 (42.0-72.0) % Lymph % (Auto) 29.7 (20-44) % [place] % (Auto) 9.6 (0.0-11.0) % Eos % (Auto) 3.3 (0.0-7.0) % Baso % (Auto) 0.4 (0.0-3.0) % Neut # (Auto) 2.87 (1.7-7.0) K/uL Lymph # (Auto) 1.52 (0.90-2.90) K/uL [place] # (Auto) 0.50 (0.00-0.90) K/UL Eos # (Auto) 0.17 (0.00-0.50) K/uL Baso # (Auto) 0.02 (0.00-0.30) K/uL Abs Immat Gran (auto) 0.04 (0.00-0.30) K/uL Imm/Tot Granulo (auto) 0.8 % Sodium 139 (135-149) mmol/L Potassium 3.8 (3.6-5.1) mmol/L Chloride 103 (96-114) mmol/L Carbon Dioxide 29 (20-32) mmol/L Anion Gap 7 (7-15) mEq/L BUN 19 (7-30) mg/dL Creatinine 0.8 (0.5-1.5) mg/dL Estimated Creat Clear 45.20 Estimated GFR 79 ml/min Glucose 91 (60-115) mg/dL Calcium 9.2 (8.4-10.6) mg/dL Troponin I < 0.01 (0.01-0.04) ng/mL NT-Pro-B Natriuret Pep 163 pg/mL TSH 1.770 (0.270-4.20) uIU/mL POC Troponin I 0.00 L (0.01-0.04) ng/ml ECG Data Attestation: I personally reviewed and interpreted this ECG as follows: (Normal sinus rhythm. Rate of 69.) Discharge Plan Discharge Clinical Impression: Heart palpitations Patient Disposition: Home, Self-Care Condition: Improved Additional Instructions: It appears that you might be experiencing some premature atrial contractions or some other benign arrhythmia. I would continue to focus on hydration. If these are becoming more intense, frequent, contributing to lightheadedness or worsening weakness, would be re-evaluated. The metoprolol that you already take should be helpful generally. You might consider conversation with your process maintenance technician or primary care provider. You can continue usual levels of activity. Prescriptions: No Action amitriptyline 10 mg tablet 20 mg PO QDAY zinc sulfate 50 mg zinc (220 mg) capsule 50 mg PO DAILY multivitamin Tablet 1 tab PO QAM aspirin 81 mg tablet,delayed release (DR/EC) 81 mg PO DAILY Saccharomyces boulardii [Daily Probiotic (S. boulardii)] 250 mg capsule 5,000 mmu cells PO QDAY metoprolol succinate 25 mg tablet extended release 24 hr 12.5 mg PO BID Qty: 180 3RF rosuvastatin 5 mg tablet 5 mg PO QHS Qty: 90 3RF cholecalciferol (vitamin D3) 25 mcg (1,000 unit) capsule 25 mcg PO QDAY Qty: 90 1RF zolpidem 5 mg tablet 2.5 mg PO .qhs PRN (Reason: insomnia) Qty: 30 0RF Rx Instructions: Take half a tablet every night as needed for insomnia Follow Up/Referrals: Mary Ruiz MD [Primary Care Provider] - Stand Alone Forms: [facility] Info Instructions
[2025-02-12 15:45] LABS: Basophils Absolute Auto 0.02 K/uL (0.00-0.30); Basophils Percent Auto 0.4 % (0.0-3.0); Eosinophils Absolute Auto 0.17 K/uL (0.00-0.50); Eosinophils Percent Auto 3.3 % (0.0-7.0); Hematocrit 43.7 % (33.0-51.0); Hemoglobin* 14.4 gm/dL (12.0-16.0); Immature Granulocytes Abs Auto 0.04 K/uL (0.00-0.30); Immature Granulocytes Pct Auto 0.8 %; Lymphocytes Absolute Auto 1.52 K/uL (0.90-2.90); Lymphocytes Percent Auto 29.7 % (20-44); Mean Corpuscular HGB Conc 33 gm/dL (32-36); Mean Corpuscular Hemoglobin 30 pg (26-34); Mean Corpuscular Volume 91 fL (80-100); Monocytes Percent Auto 9.6 % (0.0-11.0); Neutrophils Absolute Auto 2.87 K/uL (1.7-7.0); Neutrophils Percent Auto 56.2 % (42.0-72.0); Platelet Count* 205 K/uL (140-440); RDW Coefficient of Variation % 11.8 % (11.5-15.5); White Blood Count* 5.11 K/uL (4.50-11.00)
[2025-02-12 15:48] LABS: Slide Review Reflex No
[2025-02-12] MEDS: 0.9 % SODIUM CHLORIDE 1000 ml 1,000 ML 1200 ML IV (16:20)
[2025-02-12 16:24] LABS: Chloride* 103 mmol/L (96-114); Potassium* 3.8 mmol/L (3.6-5.1); Sodium* 139 mmol/L (135-149)
[2025-02-12 16:27] LABS: Anion Gap 7 mEq/L (7-15); Blood Urea Nitrogen* 19 mg/dL (7-30); Calcium* 9.2 mg/dL (8.4-10.6); Carbon Dioxide* 29 mmol/L (20-32); Creatinine* 0.8 mg/dL (0.5-1.5); Estimated Glomerular Filt Rate 79 ml/min; Glucose* 91 mg/dL (60-115)
--- OUTSIDE RECORDS SUMMARY | 2025-02-12 16:37 | XMS_ITS | Clinical Summary ---
Author Organization [facility] Address [address] [place] [id number] Care Team Providers Care Regional Property Manager Name Role Phone No Ref-Primary, Physician Primary Care Provider Allergies Active Allergy Reactions Criticality Noted Date Comments Erythromycin Nausea and Vomiting 06/28/2011 Other reaction(s): Abdominal pain, GI intolerance severe severe Perflutren Lipid Microspheres Muscle Pain (Myalgia) Medium 09/25/2015 Other reaction(s): Myalgia Other reaction(s): Myalgia Lower back pain Lower back pain Lower back pain Other reaction(s): Myalgia Lower back pain Medications alendronate (FOSAMAX) 70 MG tablet Take 70 mg by mouth 1 Active amitriptyline (ELAVIL) 10 MG tablet Take 40 mg by mouth 1 Active vitamin C (ASCORBIC ACID) 500 MG tablet Daily Active cholecalciferol 25 MCG (1000 UT) TABS 2,000 Units Active metoprolol tartrate (LOPRESSOR) 25 MG tablet Take 12.5 mg by mouth 1 Active nitroGLYcerin (NITROSTAT) 0.[address] 0.4 mg under the tongue 2 Active polyethylene glycol (MIRALAX) 17 GM/Dose powder Daily Activ e zinc gluconate 50 MG tablet Take 1 tablet by mouth daily Active zolpidem (AMBIEN) 5 MG tablet Take 2.5 mg by mouth 1 Active nirmatrelvir and ritonavir (PAXLOVID) therapy packIndications :Suspected COVID-19 virus infection Take 3 tablets by mouth 2 times daily Take 2 Nirmatrelvir tablets and 1 Ritonavir tablet twice daily for 5 days. 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 Gender Identity Not on file Sexual Orientation Not on file Last Filed Vital Signs Vital Sign Reading Time Taken Comments Blood Pressure 130/84 02/27/2022 2:03 PM CDT Pulse 73 02/27/2022 2:03 PM CDT Temperature 36.8 C (98.3 F) 02/27/2022 2:03 PM CDT Respiratory Rate 16 02/27/2022 2:03 PM CDT Oxygen Saturation 97% 02/27/2022 2:03 PM CDT Inhaled Oxygen Concentration - - Weight 63.5 kg (140 lb) 02/27/2022 2:03 PM CDT Height - - Body Mass Index - - Plan of Treatment Health Maintenance Due Date Last Done Comments ADVANCE CARE PLANNING 1955 ANNUAL REVIEW OF HM ORDERS 1954 CT COLONOGRAPHY 1955 DEXA 1955 DIABETES SCREENING 1955 FIT 1955 FLEX SIG 1954 MAMMO SCREENING 1954 sDNA (Cologuard) 1955 HEPATITIS C SCREENING 1972 LIPID 1994 COLONOSCOPY 08/10/2015 08/10/2005 COLORECTAL CANCER SCREENING 08/10/2015 ZOSTER IMMUNIZATION (2 of 3) 08/22/2017 06/27/2017 FALL RISK ASSESSMENT 2019 MEDICARE ANNUAL WELLNESS VISIT 2019 09/12/2017, 08/05/2016, 09/03/2013, Additional history exists COVID-19 Vaccine ( season) 2024 09/14/2021, 01/23/2021, 12/26/2020 INFLUENZA VACCINE (#1) 2024 2, 07/28/2021, 08/07/2020, Additional history exists PHQ-2 (once per calendar year) 2024 DTAP/TDAP/TD IMMUNIZATION (4 - Td or Tdap) 10/13/2028 10/13/2018, 10/13/2018, 10/06/2007, Additional history exists RSV VACCINE (1 - 1-dose 75+ series) 2029 Pneumococcal Vaccine: 50+ Years Completed 12/29/2021, 11/22/2019, 11/09/2005 HPV IMMUNIZATION [...] * COLONOSCOPY (08/10/2005 7:30 AM CDT) COLONOSCOPY [facility] Endoscopy Department Patient Name: Shalini Victoria Gender: F Procedure Date: 08/10/2005 7:30 AM SSN: [id number] Date of : 1955 Age: 50 Admit Type: Outpatient Room: Note Status: Finalized Attending MD: Gilbert Landaverde Procedure: Colonoscopy Indications: Abdominal distress/pain in the left lower quadrant, Avg risk screening for malignant neoplasm in the colon. Prior history of polyps (type unknown) and remote family history (aunt in her 70's). Providers: Gilbert Landaverde MD, Cheryl Contreras RN Referring MD: Zara Yung MD Medicines: Fentanyl IV 150 mcgs, Versed IV 3 mgs Complications: No immediate complications Procedure: - A History and Physical has been performed, and patient medication allergies have been reviewed. The patient The risks and benefits of the procedure and the sedation options and risks were discussed with the patient. All questions were answered and informed consent was obtained. Patient identification and proposed procedure were verified prior to the procedure by the physician in the procedure room. Mental Status Examination: normal. Airway Examination: normal oropharyngeal airway and neck mobility. Respiratory Examination: clear to auscultation. CV Examination: RRR, no murmurs, no S3 or S4. ASA Grade Assessment: P1 A normal healthy patient. After reviewing the risks and benefits, the patient was deemed in satisfactory condition to undergo the procedure. The anesthesia plan was to use moderate sedation / analgesia (conscious sedation). Immediately prior to administration of medications, the patient was re-assessed for adequacy to receive sedatives. The heart rate, respiratory rate, oxygen saturations, blood pressure, adequacy of pulmonary ventilation, and response to care were monitored throughout the procedure. The physical status of the patient was re-assessed after the procedure. After obtaining informed consent, the colonoscope was passed under direct vision. Throughout the procedure, the patient's blood pressure, pulse, and oxygen saturations were monitored continuously. The [id number] noscope was introduced through the anus and advanced to the cecum, identified by appendiceal orifice & IC valve. The colonoscopy was accomplished without difficulty. The patient tolerated the procedure fairly well. The quality of the prep was good. Findings: A few small-mouthed diverticula were found in the sigmoid colon. The colon (entire examined portion) was normal. Impression: - Minor sigmoid colon diverticulosis. - The colon is otherwise normal and healthy in appearance. Recommendation: - Discharge patient to home (ambulatory). - Repeat colonoscopy in 5-10 years for surveillance of previously identified colon polyps. - Return to referring provider PRN. CPT Code(s): 69016, Colonoscopy, flexible, proximal to splenic flexure; diagnostic, with or without collection of specimen(s) by brushing or washing, with or without colon decompression (separate procedure) ICD Code(s): 789.04, Abdominal Pain, Left Lower Quadrant V76.51, Special Screening For Malignant Neoplasms, Colon The codes documented in this report are preliminary and upon creative services specialist review may be revised to meet current compliance requirements. Signed electronically by Gilbert Landaverde MD Gilbert Landaverde MD Signed Date: 08/10/2005 8:28 AM Number of Addenda: 0 I was physically present for the entire viewing portion of the exam. Note generated on 08/10/2005 7:31 AM RADIOLOGY RESULTS COLONOSCOPY RADIOLOG Y RESULTS 08/10/2005 7:30 AM CDT us Gilbert Landaverde MD PROCEDURES Final Result RADIOLOGY RESULTS from Last 3 Months or Most Recently Relevant to Health Maintenance Insurance [facility] MEDICARE ADVANTAGE Care Teams Regional Property Manager Relationship Specialty Start Date End Date No Ref-Primary, Physician PCP - General 02/27/22
--- OUTSIDE RECORDS SUMMARY | 2025-02-12 16:38 | XMS_ITS | Clinical Summary ---
Author Organization [facility] Address [address] [place] [address] Care Team Providers Care Fire Officer Name Role Phone Mary Ruiz MD Primary Care Provider + Allergies Active Allergy Reactions Criticality Noted Date Comments Perflutren Lipid Microspheres Myalgia Medium 09/25/2015 Lower back pain Erythromycin Nausea And Vomiting 09/09/2015 Medications alendronate (FOSAMAX) 70 mg tablet Take 70 mg by mouth once a week in the morning. Take on empty stomach with full glass of water. Do not lie down for 1 hr. Active zolpidem (AMBIEN) 5 mg tablet Take 2.5 mg by mouth at bedtime. Active polyethylene glycol (MIRALAX) 17 g powder for solution Take 17 g by mouth once daily. 0 8 Active amitriptyline (ELAVIL) 10 mg tablet Take 4 Tablets by mouth at bedtime. 0 Active ascorbic acid, vitamin C, (VITAMIN C) 1,000 mg tablet Take 1 Tablet by mouth once daily. 0 Active multivitamin (MVI) tablet Take 1 Tablet by mouth once daily. 0 2 Active zinc 50 mg tablet Take 1 Tablet (50 mg) by mouth once daily. 0 2 Active cholecalciferol (Vitamin D) 1,000 unit tablet Take 1 Tablet (1,000 units) by mouth once daily. 0 2 Active medication order composer Calcium cap once daily (unsure of strength) Pro and prebiotic One capsule per day. 0 2 Active aspirin chewable 81 mg chewable tabletIndications: Spontaneous dissection of coronary artery Chew 1 Tablet (81 mg) by mouth once daily. Pt stated taking one tab by mouth every other day, unless when having an episode I'll take one everyday. 0 2 Active nitroglycerin (NITROSTAT) 0.4 mg sublingual tabletIndications: Spontaneous dissection of coronary artery,Stress-suraj ananya cardiomyopathy Place 1 Tablet (0.4 mg) under the tongue every 5 minutes if needed for Chest Pain. 25 Tablet 2 2 Active metoprolol tartrate (LOPRESSOR) 25 mg tabletIndications: Spontaneous dissection of coronary artery Take 0.5 Tablets (12.5 mg) by mouth two times daily. 180 Tablet 3 Active Active Problems Problem Noted Date Diagnosed Date Hypercholesterolemia 09/07/2018 Overview (09/07/2018): -09/01/2018 Chol: 208, T, HDL: 72, LDL: 123 started on atorvastatin 20 mg at bedtime Stress-induced cardiomyopathy 08/31/2018 Spontaneous dissection of coronary artery 2017 Overview (09/06/2018): -09/15/2015 CT coronary angio Normal coronary arteries. [...] LV thrombus. No acute non cardiovascular findings. COMMENT: The patient had a vasovagal episode [...] transported upstairs fully awake and intact. Immunizations Immunization Administration Dates Next Due Hepatitis A (Adult) [...] Answer Date Recorded PHQ-2 Score 3 01/06/2019 Financial Resource Strain Answer Date R ecorded Difficulty of Paying Living Expenses Not on file 11/07/2021 Difficulty of Paying Living Expenses Not on file 11/07/2021 Comments No Sex and Gender Information Value Date Recorded Sex Assigned at Not on file Legal Sex Female 6:07 AM WATCH TRAIN ASSEMBLER Gender Identity Not on file Sexual Orientation Not on file Obstetrics History Last Filed Vital Signs Vital Sign Reading Time Taken Comments Blood Pressure 103/70 10/18/2022 9:36 AM WATCH TRAIN ASSEMBLER Difficult to hear. Pulse 68 10/18/2022 9:33 AM WATCH TRAIN ASSEMBLER Temperature 36.4 C (97.6 F) 09/03/2018 8:41 AM CDT Respiratory Rate 16 09/03/2018 8:41 AM CDT Oxygen Saturation 99% 10/18/2022 9:3 3 AM WATCH TRAIN ASSEMBLER Inhaled Oxygen Concentration - - Weight 63.9 kg (140 lb 14.4 oz) 10/18/2022 9:33 AM WATCH TRAIN ASSEMBLER Height 165.1 cm (5' 5) 10/18/2022 9:33 AM WATCH TRAIN ASSEMBLER Body Mass Index 23.45 10/18/2022 9:33 AM WATCH TRAIN ASSEMBLER Plan of Treatment Health Maintenance Due Date Last Done Comments Tdap 1965 Hepatitis C screening for ag e 18-79 1972 Colonoscopy through age 75 1999 Zoster (shingles) series for age 50+ (1 of 2) 2004 Pneumococcal series for age 50+ (2 of 2 - PCV) 11/09/2006 11/09/2005 Tetanus booster 04/02/2008 04/02/1998 RSV vaccine for adults or (1 - Risk 60-74 years 1-dose series) 2014 Mammogram for age 45-75 04/20/2018 04/20/20 17, 04/14/2016, 04/03/2015, Additional history exists DEXA/DXA scan for age 65+ 2019 Medicare Wellness for age 65+ 2019 Depression screening for age 12+ 09/22/2019 09/22/2018, 09/21/2018, 09/21/2018, Additional history exists BMI (ht and wt on same day) for age 18+ 10/18/2023 10/18/2022, 04/27/2022, 01/17/2019, Additional history exists COVID-19 vaccine series ( season) 2024 08/30/2022, 09/14/2021, 01/23/2021, Additional history exists Influenza Vaccine (Season Ended) 2025 08/22/2017, 08/05/2016, 08/05/2016, Additional history exists Lipids for age 45-75 10/18/2027 10/18/2022, 01/14/2020, 09/21/2018, Additional history exists Procedures Procedure Name Priority Date/Time Associated Diagnosis Comments LIPID PANEL W REFLEX MEASURED LDL Today 10/18/2022 10:31 AM WATCH TRAIN ASSEMBLER Mixed hyperlipidemia XR MAMMO BILAT SCREENING Routine 04/20/2017 9:23 AM CDT Visit for screening mammogram from Last 3 Months or Most Recently Relevant to Health Maintenance Results * (ABNORMAL) LIPID PANEL W REFLEX MEASURED LDL (10/18/2022 10:31 AM WATCH TRAIN ASSEMBLER) CHOLESTEROL,TOTAL 244(H) 100 - 199 mg/dL 10/18/2022 10:57 AM WATCH TRAIN ASSEMBLER [facility] TRIGLYCERIDES 78 <150 mg/dL 10/18/2022 10:57 AM WATCH TRAIN ASSEMBLER [facility] HDL CHOLESTEROL 75 >40 mg/dL 10:57 AM WATCH TRAIN ASSEMBLER [facility] NON-HDL CHOLESTEROL 169(H) <145 mg/dl 10/18/2022 10:57 AM WATCH TRAIN ASSEMBLER [facility] CHOL/HDL RATIO 3.25 <4.50 10/18/2022 10:[address] [facility] LDL CHOLESTEROL 153(H) <=130 mg/dL 10/18/2022 10:57 AM WATCH TRAIN ASSEMBLER [facility] VLDL CHOLESTEROL 16 <=30 mg/dL 10/18/20 22 10:57 AM WATCH TRAIN ASSEMBLER [facility] PROVIDER ORDERED STATUS RANDOM 10/18/2022 10:[address] [facility] Blood BLOOD SPECIMEN / Unknown Venipuncture / Unknown 10/18/2022 10:31 AM WATCH TRAIN ASSEMBLER 10/18/2022 10:32 AM WATCH TRAIN ASSEMBLER us Gabriela Franklin MD CHEMISTRY Final Res ult [facility] [address] [place] [address] * XR MAMMO BILAT SCREENING (04/20/2017 9:23 AM CDT) Anatomical Region Laterality Modality BREASTS, Breast Left, Breast Right Bilateral Mammography Impressions 04/20/2017 11:42 AM CDT There is no radiographic evidence for malignancy. Recommend annual mammograms. A lay language report of this examination will be provided to the patient. MAMMOGRAM ASSESSMENT: ACR 1 Negative Narrative 04/20/2017 11:42 AM CDT XR MAMMO BILAT SCREENING [[id number]] CLINICAL HISTORY: This is an asymptomatic 62 y.o. patient. INDICATION FOR EXAM: Mammogram Screening. TECHNIQUE: CC & MLO views were obtained. This digital study was evaluated with the assistance of Computer-Aided Detection. COMPARISON FILM: Yes 04/14/16 [facility] 04/09/13 [facility] FINDINGS: Mammographically, the breast tissue has scattered fibroglandular densities. There are no dominant masses, suspicious micro calcifications or areas of architectural distortion. Sandra Mccracken MD MAMMO Final Result from Last 3 Months or Most Recently Relevant to Health Maintenance Insurance [employer] MEDICARE ADVANTAGE MR Advance Directives * Full Code (Latest Code Status on File) Date Activated Date Inactivated Comments 08/31/2018 12:56 PM 09/03/2018 4:30 PM Care Teams Fire Officer Relationship Specialty Start Date End Date Mary Ruiz MD [address] [place] [address] PCP - General Family Practice 10/24/18
--- OUTSIDE RECORDS SUMMARY | 2025-02-12 16:38 | XMS_ITS | Clinical Summary ---
Author Organization [facility] Address [address] [place] [address] Care Team Providers Care Vending Machine Filler Name Role Phone Mary Ruiz MD Primary Care Provider Source Comments You are receiving this document as you are listed as the primary care provider,follow-up provider, or the patient has been referred to you for consultation.This is in compliance with the Medicare and[facility] EHR Incentive Program,which states Providers who transition their patient to another setting of careor provider of care or refers their patient to another provider of care shouldprovide summary care record for each transition of care or referral. [facility] Allergies Active Allergy Reactions Criticality Noted Date Comments Erythromycin Gastrointestinal 06/30/2023 Stomach pain Perflutren Lipid Microspheres Myalgias Medium 09/25/2015 Lower back pain Medications zolpidem (AMBIEN) 5 MG tablet Take 0.5 Tablets (2.5 mg) by mouth at bedtime as needed. Active amitriptyline (ELAVIL) 10 MG tablet Take 2 Tablets (20 mg) by mouth daily at bedtime. Active metoprolol tartrate (LOPRESSOR) 25 MG tablet Take 0.5 Tablets (12.5 mg) by mouth two times a day. 90 Tablet 3 07/17/2024 Active rosuvastatin (CRESTOR) 5 MG tablet Take 1 Tablet (5 mg) by mouth daily. 90 Tablet 3 07/17/2024 Active aspirin EC 81 MG enteric coated tablet Take 1 Tablet (81 mg) by mouth daily. 07/17/2024 Active nitroglycerin (NITROSTAT) 0.[address] 1 Tablet (0.4 mg) under tongue every 5 minutes as needed for Chest Pain. If no relief after 5 min call 911;continue 1 tab every 5 min max 3 tab 15 Tablet 3 07/17/2024 Active Active Problems Problem Noted Date Diagnosed Date Fibromuscular dysplasia 07/17/2024 Dyslipidemia 07/17/2024 Spontaneous dissection of coronary artery [address] elevation myocardial infarction (S [place]INE) 07/17/2024 Immunizations Immunization Administration Dates Next Due Flu Vac (3+ yrs) 08/07/2014, 3,08/18/2012,2010,07/20/2011,08/12/2010,09/13/2006,1 11/07/2004 Flu Vac Preserv Free (3+yrs) 08/05/2016 Fluzone Qiv Multidose Vial 0 .25 (6-35 Mos) 07/23/2015 [id number] 11/26/2009 HepA Adult (19+ yrs) 05/13/2010,11/18/1998 Influenza (Flucelvax), Prese rv Free QIV 08/11/2018,08/22/2017 Influenza IIV3 (Trivalent) F luzone Highdose, 65+ Yrs (86038) 08/07/2019,08/01/2015 Influenza IIV4 (Quadrivalent ) 0.5mL (29214) 08/07/2020,08/05/2016,08/01/2015,2013,07/24/2014,08/20/2013,08/07/2012,0 08/06/2011,11/26/2009,08/07/2007, 004 Influenza IIV4 (Quadrivalent ) Fluzone, 65+ Yrs 08/09/2022,07/28/2021 Influenza Vaccine (3+years) ([facility]) 09/19/2007 Moderna Bivalent 12+ 08/30/2022 Moderna Monovalent 12+ 01/23/2021,12/26/2020 PCV13 (Prevnar) 11/22/2019 PPSV23 (Pneumovax) 12/29/2021,11/09/2005 Pfizer Monovalent 12+ Purple Top 09/14/2021 Td 04/02/1998 Tdap 10/13/2018 Zoster (Zostavax) 06/27/2017 Social History Tobacco Use Types Packs/Day Years Used Date Smoking Tobacco: Never Smokeless Tobacco: Never Tobacco Cessation:Counseling Given: Not Answered Comments Unknown Sex and Gender Information Value Date Recorded Sex Assigned at Not on file Legal Sex Female 7:16 AM CDT Gender Identity Not on file Sexual Orientation Not on file Last Filed Vital Signs Vital Sign Reading Time Taken Comments Blood Pressure 106/68 08/02/2024 11:05 AM CDT Pulse 61 08/02/2024 11:05 AM CDT Temperature - - Respiratory Rate 16 08/02/2024 11:05 AM CDT Oxygen Saturation 100% 08/02/2024 11:05 AM CDT Inhaled Oxygen Concentration - - Weight 62.1 kg (137 lb) 07/17/2024 10:33 AM CDT Height 165.1 cm (5' 5) 07/17/2024 10:33 AM CDT Body Mass Index 22.8 07/17/2024 10:33 AM CDT Plan of Treatment Health Maintenance Due Date Last Done Comments Hep C Screening (Preventive Services) 1955 Medicare Welcome Visit 1955 Zoster/Shingles (2 of 3) 08/22/2017 06/27/2017 Mammogram 04/20/2018 04/20/2017, 04/09/2013 Dexa 2019 Colonoscopy 05/04/2020 05/04/2010 COVID-19 Vaccine ( season) 2024 08/30/2022, 09/14/2021, 01/23/2021, Additional history exists Influenza (#1) 2024 09/12/2023, 10/01/2022, 07/28/2021, Additional history exists Cholesterol 06/30/2028 06/30/2023 DTaP/Tdap/Td (2 - Tdap) 10/13/2028 10/13/2018, 04/02 RSV (1 - 1-dose 75+ series) 2029 HepA Completed 05/13/2010, 11/18/1998 Pneumococcal 50+ Yrs Completed 12/29/2021, 11/22/2019, 11/09/2005 HepB Aged [...] on patient's age to complete this topic Meningococcal B Aged Out No longer el igible based on patient's age to complete this topic Procedures Procedure Name Priority Date/Time Associated Diagnosis Comments LIPID PANEL & DIRECT LDL (IF NEEDED) Routine 06/30/2023 10:54 AM CDT Mixed hyperlipidemia (HRC) from Last 3 Months or Most Recently Relevant to Health Maintenance Results * Lipid Panel and Direct LDL(If Needed) (06/30/2023 10:54 AM CDT) [facility] Signature Cholesterol 189 0 - 199 mg/dL 06/30/2023 4:24 PM [facility] Triglyceride 66 <=149 mg/dL 06/30/2023 4:24 PM [facility] HDL Cholesterol 79 >=40 mg/dL 3 4:24 PM [facility] LDL, Calculated 97 <130 mg/dL 3 4:24 PM [facility] Non HDL Chol, Calculated 110 <=159 mg/dL 06/30/2023 4:24 PM [facility] Cholesterol/HDL Ratio 2.4 06/30/2023 4:24 PM [facility] Hours Fasting 0.1 8 - 12 Hours 06/30/2023 4:24 PM [facility] Blood Venipuncture / Unknown 06/30/2023 10:54 AM CDT 06/30/2023 10:54 AM CDT us Gabriela Franklin MD LAB_1 Final Result [facility] [address] [place] [address], [facility] [phone] from Last 3 Months or Most Recently Relevant to Health Maintenance Insurance [facility] MEDICARE ADVANTAGE Care Teams Vending Machine Filler Relationship Specialty Start Date End Date Mary Ruiz MD [address] [place] [address] PCP - General Family Practice 07/15/23
--- OUTSIDE RECORDS SUMMARY | 2025-02-12 16:38 | XMS_ITS | Clinical Summary ---
Author Organization [facility] Address [address] [place] [address] Care Team Providers Care Acute Coordinator Name Role Phone Anthony Terrell MD Unavailable Allergies Active Allergy Reactions Criticality Noted Date Comments Erythromycin Abdominal pain 06/28/2011 severe Perflutren Lipid Microspheres Medium 02/16/2016 Other reaction(s): Myalgia Lower back pain Medications multivitamin Oral Tab Take 1 Tab by mouth daily. Active cholecalciferol, Vitamin D3, (VITAMIN D) 1,000 unit Oral Tab Take 2 Tabs by mouth Once Daily. Active polyethylene glycol (MIRALAX) 17 gram oral PwPk as needed. 5 Active zolpidem (AMBIEN) 5 mg oral tabletIndication s:Persistent disorder of initiating or maintaining sleep TAKE ONE-HALF TABLET BY MOUTH EVERY EVENING AT BEDTIME 45 tablet 3 8 Active amitriptyline (ELAVIL) 10 mg oral tabletIndication s:Persistent disorder of initiating or maintaining sleep TAKE 3 TABLETS BY MOUTH EVERY NIGHT AT BEDTIME 270 tablet 8 Active omeprazole (PRILOSEC) 20 mg oral delayed release capsuleIndicatio ns:Gastroesophag eal reflux disease, esophagitis presence not specified TAKE 1 CAPSULE BY MOUTH DAILY NEEDED 90 capsule 8 Active cephalexin (KEFLEX) 500 mg oral capsuleIndicatio ns:Cellulitis of back except buttock Take 1 capsule (500 mg) by mouth three times a day. 21 capsule 8 Active clobetasol 0.05% (TEMOVATE) 0.05 % Top cream cream Apply 1 Application to skin twice a day. As needed for bug bites. 30 g 1 8 Active alendronate (FOSAMAX) 70 mg oral tabletIndication s:Osteoporosis, unspecified osteoporosis type, unspecified pathological fracture presence TAKE 1 TABLET BY MOUTH EVERY 7 DAYS 12 tablet 9 Active Active Problems Problem Noted Date Diagnosed [...] 01/06/200906/08 Immunizations Name Administration Dates Next Due Hep A Adult 05/13/2010,11/18/1998 Influenza (Fluzone 2011-13) 08/07/2012 Influenza (Fluzone MDV 2012-14) 08/20/2013 Influenza High Dose (Fluzone Quadrivalent PF) 08/01/2015 Influenza recombinant (FluBl ok Quadrivalent PF) 08/05/2016 Influenza split virus quadrivalent 08/07,08/06/2011,08/07/2007,2003 Pneumococcal PPSV23 11/09/2005 Td adult absorbed PF (2 Lf) 04/02/1998 Td adult adsorbed (lf) unspecified 10/06/2007 Zoster Live 06/27/2017 Family History Medical History Relation Comments High Cholesterol Father Breast Cancer Maternal Aunt 1 age 67 Colon Cancer Maternal Aunt 2 age 68 Heart Disease Maternal Grandmother Grandfather -[place] in his 50's Ovarian Cancer Maternal Grandmother [...] Answer Date Recorded PHQ-2 Score 0 09/20/2018 Comments No Sex and Gender Information Value Date Recorded Sex Assigned at Not on file Legal Sex Female 4:29 AM CDT Gender Identity Not on file Sexual Orientation Not on file 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 Not on file Not on fi le Last Filed Vital Signs Vital Sign Reading Time Taken Comments Blood Pressure 100/70 07/07/2018 1:34 PM CDT Pulse 70 06/06/2018 9:44 AM CDT Temperature 36.7 C (98.1 F) 07/07/2018 1:34 PM CDT Respiratory Rate 16 06/06/2018 9:44 AM CDT Oxygen Saturation 95% 02/21/2017 2:29 PM CDT Inhaled Oxygen Concentration - - Weight 67.5 kg (148 lb 14.4 oz) 07/07/2018 1:34 PM CDT Height 165.1 cm (5' 5) 07/07/2018 1:34 PM CDT Body Mass Index 24.78 07/07/2018 1:34 PM CDT Plan of Treatment Health Maintenance Due Date Last Done Comments Depression Assessment (PHQ-2) 1956 Pneumococcal 50+ Years (2 of 2 - PCV) 11/09/2006 11/09/2005 RSV Vaccines (1 - Risk 60-74 years 1-dose series) 2014 Zoster Vaccine (2 of 3) 08/22/2017 06/27/2017 Adult Tetanus Booster 10/06/2017 10/06/2007, 998 Mammogram Screening 04/20/2018 04/20/2017, 04/14/2016, 04/03/2015, Additional history exists Osteoporosis Screening 08/16/2018 08/16/2016 Yearly Review of HCD 09/12/2018 09/12/2017, 02/21/2017, 12/21/2016, Additional history exists Colonoscopy 05/04/2020 05/04/2010 (Prev iously completed) Lipid Screening 09/12/2022 09/12/2017, 07/09, 05/13/2010 COVID-19 Vaccine ( - 2023-2 5 season) 2024 Influenza Vaccine (Season Ended) 2025 08/21/2017, 08/05/2016, 08/01/2015, Additional history exists Hepatitis C Screening Completed 08/05/2016 Procedures Procedure Name Priority Date/Time Associated Diagnosis Comments LIPID PROFILE CASCADE Routine 09/12/2017 2:19 PM SERVICE MEMBER Lipid screening HEP C ANTIBODY Routine 08/05/2016 8:57 AM CDT Special screening for other specified conditions(V82.89) MAMMO DIGITAL SCREENING BI Routine 03/16/2011 5:10 PM CDT Other screening mammogram from Last 3 Months or Most Recently Relevant to Health Maintenance Results * (ABNORMAL) LIPID PROFILE CASCADE (09/12/2017 2:19 PM SERVICE MEMBER) Specimen Type Fasting 09/12/2017 10:14 PM [facility] Cholesterol 255(H) <200 mg/dL 09/12/2017 10:14 PM [facility] Triglycerides 83 <150 mg/dL 09/12/2017 10:14 PM [facility] LDL Chol, Calc 151(H) <100 mg/dL 09/12/2017 10:14 PM [facility] HDL Cholesterol 87 >40 mg/dL 7 10:14 PM [facility] Chol/HDL Ratio 2.9 0.0 - 4.9 09/12/2017 10:14 PM SERVICE MEMBER [facility] Blood Venipuncture / Unknown 09/12/2017 2:19 PM SERVICE MEMBER 09/12/2017 2:19 PM [facility] - 09/12/2017 10:14 PM [facility] LDL CHOLESTEROL REFERENCE RANGES: (FOR PATIENTS W/O HEART DISEASE) <100 mg/dL = Optimal 100-129 mg/dL = Near/Above Optimal 130-159 mg/dL = Borderline High 160-189 mg/dL = High >/= 190 mg/dL = Very High us Sandra Mccracken MD CHEMISTRY ORDERABLE Final Resu lt [facility] [address] [facility] [place] [address] * HEP C ANTIBODY (08/05/2016 8:57 AM CDT) Hepatitis C Antibody Non-Reacti ve Non-Reacti ve 08/05/2016 6:35 PM CDT [facility] Blood Venipuncture / Unknown 08/05/2016 8:57 AM CDT 08/05/2016 8:57 AM CDT us Sandra Mccracken MD IMMUNOLOGY ORDERABLE Final Res ult [facility] [address] [address] * MAMMO DIGITAL SCREENING BI (03/16/2011 5:10 PM CDT) Anatomical Region Laterality Modality Breast Bilateral Mammography 03/16/2011 5:12 PM CDT Impressions 03/16/2011 8:13 PM CDT #[id number] - MAMMO DIGITAL SCREENING BI # BILATERAL DIGITAL SCREENING MAMMOGRAM WITH CAD: 03/16/2011 COMPARISON: Comparison is made to exam dated: 01/31/2009 mammogram - [facility]. FINDINGS: There are scattered fibroglandular elements in the both breasts. Current study was also evaluated with a Computer Aided Detection (CAD) system. No significant masses, calcifications, or other findings are seen in either breast. There has been no significant interval change. IMPRESSION: NEGATIVE There is no mammographic evidence of malignancy. A 1 year screening mammogram is recommended. The patient will be notified of the results by mail. Tamir wharton/tyler:03/16/2011 20:13:23 letter sent: BI-RADS 1/2 Normal Letter Mammogram BI-RADS: 1 Negative Narrative Procedure Note Tamir Whelan MD - 03/17/2011 #[id number] - MAMMO DIGITAL SCREENING BI # BILATERAL DIGITAL SCREENING MAMMOGRAM WITH CAD: 03/16/2011 COMPARISON: Comparison is made to exam dated: 01/31/2009 mammogram - [facility]. FINDINGS: There are scattered fibroglandular elements in [...] 1 Negative Zara Yung MD MAMMO ORDERABLE Final Result from Last 3 Months or Most Recently Relevant to Health Maintenance Insurance [employer] OPEN ACCESS/[place] [address] [employer] OPEN ACCESS/CHOICE Advance Directives For more information, please contact: [phone] * Full Code (Latest Code Status on File) Date Activated Date Inactivated Comments 08/05/2016 8:44 AM Question Answer Comments How was code status determined? Patient Care Teams Acute Coordinator Relationship Specialty Start Date End Date Anthony Terrell MD PCP - [facility] 01/18/12
--- OUTSIDE RECORDS SUMMARY | 2025-02-12 16:38 | XMS_ITS | Referral Summary ---
Author Organization [facility] Address [address] [place] [address] Care Team Providers Care French Polisher Name Role Phone Anthony Terrell MD Unavailable [...] Influenza (Fluzone 2011-13) 08/07/2012 Influenza (Fluzone MDV 2012-) 08/20/2013 Influenza High Dose (Fluzone Quadrivalent PF) 08/01/2015 Influenza recombinant (FluBl ok Quadrivalent PF) 08/05/2016 Influenza split virus quadrivalent 08/07,08/06/2011,08/07/2007,2003 Pneumococcal PPSV23 11/09/2005 Td adult absorbed PF (2 Lf) 04/02/1998 Td adult adsorbed (lf) unspecified 10/06/2007 Zoster Live 06/27/2017 Social History Tobacco Use Types Packs/Day [...] LIPID PROFILE CASCADE Routine 09/12/2017 2:19 PM BILINGUAL MEDICAL ASSISTANT Lipid screening HEP C ANTIBODY Routine 08/05/2016 8:57 AM CDT Special screening for other specified conditions(V82.89) MAMMO DIGITAL SCREENING BI Routine 03/16/2011 5:10 PM CDT Other screening mammogram from Last 3 Months or Most Recently Relevant to Health Maintenance Results * (ABNORMAL) LIPID PROFILE CASCADE (09/12/2017 2:19 PM BILINGUAL MEDICAL ASSISTANT) Specimen Type Fasting 09/12/2017 10:14 PM [facility] Cholesterol 255(H) <200 mg/dL 09/12/2017 10:14 PM [facility] Triglycerides 83 <150 mg/dL 09/12/2017 10:14 PM [facility] LDL Chol, Calc 151(H) <100 mg/dL 09/12/2017 10:14 PM [facility] HDL Cholesterol 87 >40 mg/dL 7 10:14 PM [facility] Chol/HDL Ratio 2.9 0.0 - 4.9 09/12/2017 10:14 PM [facility] Blood Venipuncture / Unknown 09/12/2017 2:19 PM BILINGUAL MEDICAL ASSISTANT 09/12/2017 2:19 PM [facility] - 09/12/2017 10:14 PM [facility] LDL CHOLESTEROL REFERENCE RANGES: (FOR PATIENTS W/O HEART DISEASE) <100 mg/dL = Optimal 100-129 mg/dL = Near/Above Optimal 130-159 mg/dL = Borderline High 160-189 mg/dL = High >/= 190 mg/dL = Very High us Sandra L. Nawaf MD CHEMISTRY ORDERABLE Final Resu lt Performing Organization Address City/[facility]/ZIP Co de Phone Number [facility] [address] [address] * HEP C ANTIBODY (08/05/2016 8:57 AM CDT) Hepatitis C Antibody Non-Reacti ve Non-Reacti ve 08/05/2016 6:35 PM CDT [facility] Blood Venipuncture / Unknown 08/05/2016 8:57 AM CDT 08/05/2016 8:57 AM CDT Sandra Mccracken MD IMMUNOLOGY ORDERABLE Final Res ult Performing Organization Address [facility] Co de Phone Number [facility] [address] [address] * MAMMO DIGITAL SCREENING BI (03/16/2011 5:10 PM CDT) Anatomical Region Laterality Modality Breast Bilateral Mammography 03/16/2011 5:12 PM CDT Impressions 03/16/2011 8:13 PM CDT #[id number] - MAMMO DIGITAL SCREENING BI # BILATERAL DIGITAL SCREENING MAMMOGRAM WITH CAD: 03/16/2011 COMPARISON: Comparison is made to exam dated: 01/31/2009 mammogram - [facility]. FINDINGS: There are scattered fibroglandular elements [...] notified of the results by mail. Tamir wharton/ytler:03/16/2011 20:13:23 letter sent: BI-RADS 1/2 Normal Letter Mammogram BI-RADS: 1 Negative Narrative Procedure Note Tamir Whelan MD - 03/17/2011 #[id number] - MAMMO DIGITAL SCREENING BI # BILATERAL DIGITAL SCREENING MAMMOGRAM WITH CAD: 03/16/2011 COMPARISON: Comparison is made to exam dated: 01/31/2009 mammogram - [facility]. FINDINGS: There are [...] 1/2 Normal Letter Mammogram BI-RADS: 1 Negative us Zara Yung MD MAMMO ORDERABLE Final Result from Last 3 Months or Most Recently Relevant to Health Maintenance Administered Medications Insurance [employer] OPEN ACCESS/CHOICE [employer] OPEN [employer]ESS[employer]CHOICE [address] [place] [id number] Advance Directives For more information, please contact: [phone] * Full Code (Latest Code Status on File) Date Activated Date Inactivated Comments 08/05/2016 8:44 AM Question Answer Comments How was code status determined? Patient Care Teams French Polisher Relationship Specialty Start Date End Date Anthony Terrell MD PCP - Home Care Liaison Cardiology 01/18/12
--- OUTSIDE RECORDS SUMMARY | 2025-02-12 16:38 | XMS_ITS | Encounter Summary ---
Author Organization [facility] Address [address] [place] [address] Care Team Providers Care Attendant Campground Name Role Phone Zara Yung MD Primary Care Provider Unavail able [facility] Unavailable Unavailable Anthony Terrell MD Unavailable Sandra Mccracken MD Primary Care Provider [phone] [facility] Unavailable Reason for Visit * Reason Onset Date Comments Cardiac Rhythm Problem 09/09/2015 Encounter Details Date Type Department Care Team (Late st Contact Info) Description 09/09/2015 Nurse Triage [facility] [address] [address] Zara Yung MD Social History Tobacco Use Types Packs/Day Years Used Date Smoking Tobacco: Never Smokeless Tobacco: Never Alcohol Use Standard Drinks/Week Comments Yes 0.8 (1 standard drink = 0.6 oz p ure alcohol) occ Comments No Sex and Gender Information Value Date Recorded Sex Assigned at Not on file Legal Sex Female 4:29 AM CDT Gender Identity Not on file Sexual Orientation Not on file 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 Denied any chest pain, SOB. Engineer Internship strongly suggested 3 times that pt be seen in ED right away. Unsure if pt will be seen as she stated she is feeling better today. Corrina Curran RN Protocol: HEART RATE AND HEART BEAT [id number] 1. DESCRIPTION: Please describe your heart rate [...] or weakness Disposition of Emergency Department suggested. WRESTLER documented in this encounter Plan of Treatment Not on file documented as of this encounter Visit Diagnoses Not on filedocumented in this encounter Care Teams Attendant Campground Relationship Specialty Start Date End Date Zara Yung MD PCP - General 03/03/10 03/10/16 [facility] PCP - Primary Care Clinic 03/03/10 Anthony Terrell MD PCP - Senior Windows Systems Administrator Cardiology 01/18/12 Sandra Mccracken MD PCP - General Family Medicine 03/11/16 07/06/21 [facility] [address] [facility] [address] PCP - Primary Care Clinic 09/02/1611/15 documented as of this encounter
[2025-02-12 17:09] LABS: NT Pro B Type NatriureticPept* 163 pg/mL
[2025-02-12 17:16] LABS: Troponin I* < 0.01 ng/mL (0.01-0.04)
== END 2025-02-12 18:12 | disposition home or self-care (01) ==
PROVIDERS: Emergency Provider Family Medicine; PCP Family Medicine
DX: R00.2 Palpitations (principal); R06.02 Shortness of breath
CPT/HCPCS: 36415; 80048; 83880; 84443; 84484; 85025; 93005; 94761; 96360; 99284; J7030

== ENCOUNTER 2025-02-15 07:50 | Outpatient (CLI) | payer MEDICARE, SELFPAY | END 2025-02-15 07:51 | disposition home or self-care (01) | LOC: NFLDREF 02-19 00:26 | PROVIDERS: PCP Family Medicine; Referring Provider Family Medicine; Visit Provider Family Medicine | DX: M81.0 Age-related osteoporosis without current pathological fracture (principal); E78.5 Hyperlipidemia, unspecified; Z13.1 Encounter for screening for diabetes mellitus | CPT/HCPCS: 80061; 82306; 82947 ==

== ENCOUNTER 2025-03-19 08:48 | Outpatient (CLI) | payer MEDICARE, SELFPAY ==
[2025-03-19 13:13] VITALS: BP 152/82; PULSE 92; RESP 16
--- NOTE | 2025-03-19 13:23 | W.PM.STED ---
Stress Test Note Date Date of test: 03/19/25 Providers Primary care provider: Mary Ruiz Stress test physician: Jose Maria Gann Stress Test Note Stress test ordered: Stress Myoview Indication for test: Shortness of breath Results discussion: This this very nice lady present cardiac stress test medical history form is reviewed, interestingly she has the of allergy reaction to definity. EKG shows ventricular rate 67, 120/78 is the blood pressure, EKG shows normal sinus rhythm, some mild ST wave flattening noted inferiorly and laterally, standard Christopher protocol is employed over a time course of 9 minutes 46 seconds, achieved achieved a metabolic with an 11.3 Mets. Conditioning was felt to be good, maximum heart rate was 177 which is 138% of the maximum. During this test she has some mild fatigue, but no specific and chest pain or shortness of breath. Test is terminated because of fulfillment of protocol, during this test there is occasional PVCs, no other dysrhythmias were noted, no acute ST wave changes suggestive of ischemia are noted. Impression: Negative electrographic portion of stress Myoview, both subjectively and objectively negative. Follow up suggested: Await Myoview images clinical correlation with these will be needed, patient recovered well there were no complications and left this testing facility in good condition.
== END 2025-03-19 12:15 | disposition home or self-care (01) ==
LOC: STRESS 08:50
PROVIDERS: PCP Family Medicine; Visit Provider Family Medicine
DX: I25.10 Atherosclerotic heart disease of native coronary artery without angina pectoris (principal); R53.83 Other fatigue; R06.02 Shortness of breath; E78.00 Pure hypercholesterolemia, unspecified
CPT/HCPCS: 78452; 93016; 93017; A9500